=== PATIENT | male | born 1950 | race Caucasian/White ===

== ENCOUNTER 2017-03-02 10:04 | Inpatient (IN) | payer MEDICARE, BC ==
[~2017-03-02] VITALS: Ht 124.5 cm; Wt 91.2 kg
[~2017-03-02 10:04] MED LIST: ALDACTONE100 MG PO; ARGINAID PO; ASPIRIN81 MG PO; BENADRYL 2% CRE30 GM TOPICAL; BETAPACE 80 MG80 MG PO; BUMEX 1 MG TAB1 MG PO; CHRONULAC30 ML PO; COREG12.5 MG PO; COUMADIN2 MG PO; DAKIN'S 0.125%480 M1 TOPICAL; FEXOFENADINE HC60 MG PO; FLOVENT HFA 22012 GM INH; FLUTICASONE PRO16 GM NASAL; GABAPENTIN100 MG PO; GLUCAGEN1 MG/VIAL IM; GLUCAGEN1 MG/VIAL SC; HUMULIN R100 U/ML SC; INSTA-GLUCOSE31 GM PO; IPRAT-ALBUT 0.5-3 ML UPD; K-DUR20 MEQ PO; LASIX40 MG PO; LEVAQUIN 5500 MG/100 IV; LEVAQUIN500 MG PO; LEVAQUIN750 MG PO; LISINOPRIL10 MG PO; LYRICA75 MG PO; MAALOX ADVANCE355 ML PO; MACROBID100 MG PO; MEXITIL 150 MG150 MG PO; MUCUS RELIEF400 MG PO; MULTIPLE VITAMI1 TA1 PO; NYSTATIN15 GM TOPICAL; OMNICEF300 MG PO; PERCOCET 10/3251 TA1 PO; PRAVACHOL40 MG PO; PROTEIN POWDER PO; PROTONIX40 MG PO; SENOKOT-S TABLE1 TAB PO; TUMS500 MG PO; ULTRAM50 MG PO; WELLBUTRIN SR150 MG PO; XARELTO10 MG PO; ZYLOPRIM100 MG PO
[2017-03-02 10:58] LABS: BASOPHILS 0.3 % (0-2); EOSINOPHILS 3.5 % (0-7); HEMATOCRIT 39.7 % (42.0-54.0); HEMOGLOBIN 12.8 g/dL (13.5-17.5); IMMATURE GRANULOCYTES 0.2 % (0-5); LYMPHOCYTES 10.3 % (15-50); MCH 27.4 pg (26.0-34.0); MCHC 32.2 g/dL (31.0-37.0); MEAN PLATELET VOLUME 9.7 fL (7.4-10.4); MONOCYTES 6.4 % (2-11); NEUTROPHILS 79.3 % (40-80); RBC 4.67 10x6/uL (4.20-6.10); RDW 18.3 % (11.5-14.5); WBC 9.7 10x3/uL (4.8-10.8)
[2017-03-02 11:00] LABS: PLATELET COUNT 267 10x3/uL (130-400)
[2017-03-02 11:14] LABS: ALBUMIN 3.5 g/dL (3.4-5.0); ALKALINE PHOSPHATASE 100 U/L (46-116); ALT (SGPT) 13 U/L (10-68); BILIRUBIN - TOTAL 1.15 mg/dL (0.2-1.3); CALC OSMOLALITY 296 mosm/kg (275-300); CALCIUM 9.3 mg/dL (8.5-10.1); CARBON DIOXIDE 27.5 mmol/L (21.0-32.0); CHLORIDE - SERUM 98 mmol/L (98-107); CREATININE - SERUM 3.7 mg/dL (0.6-1.3); POTASSIUM - SERUM 4.6 mmol/L (3.5-5.1); PROTEIN - SERUM 8.5 g/dL (6.4-8.2); SODIUM 136 mmol/L (136-145); UREA NITROGEN 69 mg/dL (7-18); eGFR NON AFRICAN AMERICAN 18 mL/min (90-120)
[2017-03-02 11:15] LABS: GLUCOSE 194 mg/dL (74-106)
[2017-03-02 11:40] LABS: CKMB 2.5 U/L (0.0-3.6); CREATINE KINASE 144 UL (21-232)
[2017-03-02 11:44] LABS: TROPONIN-I 0.065 ng/mL (0.000-0.060)
[2017-03-02 12:14] LABS: APPEARANCE TURBID (CLEAR); BILIRUBIN NEGATIVE (NEGATIVE); COLOR YELLOW (YELLOW); GLUCOSE NEGATIVE (NEGATIVE); KETONE NEGATIVE (NEGATIVE); LEUKOCYTE ESTERASE 2+ (NEGATIVE); NITRITE NEGATIVE (NEGATIVE); PROTEIN TRACE mg/dL (NEGATIVE); UROBILINOGEN NORMAL (NORMAL)
[2017-03-02 12:23] LABS: BACTERIA MANY /hpf (NONE SEEN); EPITHELIAL CELLS OCC /hpf (0-5); WHITE CELLS - URINE >50 /hpf (0-5)
--- NOTE | 2017-03-02 13:45 | NUR ---
RECEIVED PT TO ROOM 2122 FROM ER VIA W/C IN STABLE CONDITION PT DENIES ANY NEEDS OR DISCOMFORT AT THIS TIME WILL CONTINUE TO MONITOR
[2017-03-02] MEDS ORDERED: BUTRANS1 EAC1 TRANSDERM (14:09)
[2017-03-02] MEDS ORDERED: ZYLOPRIM100 MG PO (14:11)
[2017-03-02 15:43] VITALS: BP 107/65
[2017-03-02 16:00] VITALS: BP 112/71; Ht 124.5 cm; Wt 91.2 kg
--- NOTE | 2017-03-02 17:25 | NUR ---
FSBS 175
[2017-03-02 17:31] LABS: CREATINE KINASE 265 UL (21-232)
[2017-03-02 17:32] LABS: TROPONIN-I 0.062 ng/mL (0.000-0.060)
[2017-03-02 17:33] LABS: CKMB 4.1 U/L (0.0-3.6)
--- NOTE | 2017-03-02 18:45 | NUR ---
PT UNABLE TO WEAR SCDs BILATERAL AKA
--- NOTE | 2017-03-02 19:00 | NUR ---
INITIAL ROUNDS MADE. PT SITTING UP IN BED WATCHING TV. C-COLLAR IN PLACE, PT DENIES NEEDS OR C/O AT THIS TIME. CALL LIGHT IN REACH WILL CONT TO MONITOR.
[2017-03-02 20:00] VITALS: BP 108/66
[2017-03-02 23:46] LABS: CREATINE KINASE 263 UL (21-232); TROPONIN-I 0.061 ng/mL (0.000-0.060)
[2017-03-02 23:47] LABS: CKMB 3.4 U/L (0.0-3.6)
[2017-03-03] VITALS (7 sets, daily range): BP systolic 108–129; BP diastolic 62–80
[2017-03-03 04:31] LABS: BASOPHILS 0.3 % (0-2); EOSINOPHILS 3.9 % (0-7); HEMATOCRIT 39.4 % (42.0-54.0); HEMOGLOBIN 12.5 g/dL (13.5-17.5); IMMATURE GRANULOCYTES 0.2 % (0-5); LYMPHOCYTES 11.3 % (15-50); MCH 27.2 pg (26.0-34.0); MCHC 31.7 g/dL (31.0-37.0); MCV 85.7 fL (80.0-100.0); MEAN PLATELET VOLUME 9.9 fL (7.4-10.4); MONOCYTES 6.6 % (2-11); NEUTROPHILS 77.7 % (40-80); PLATELET COUNT 285 10x3/uL (130-400); RDW 18.5 % (11.5-14.5); WBC 10.3 10x3/uL (4.8-10.8)
[2017-03-03 04:49] LABS: ANION GAP 17.1 mmol/L (8-16); CALCIUM 9.3 mg/dL (8.5-10.1); CARBON DIOXIDE 27.5 mmol/L (21.0-32.0); CREATININE - SERUM 3.8 mg/dL (0.6-1.3); POTASSIUM - SERUM 4.6 mmol/L (3.5-5.1)
--- NOTE | 2017-03-03 09:43 | NUR ---
Patient Name: NENA BHATTI Admission Status: ER Accout number: [id number] Admission Date: 03-02-2017 : 1950 Admission Diagnosis: Attending: MARGOTH Current LOS: 1 Anticipated DC Date: 03-03-2017 Planned Disposition: Home Primary Insurance: MEDICARE A & B Discharge Planning Comments: * Is the patient Alert and Oriented? Yes 0 * How many steps to enter\exit or inside your home? RAMP 0 * PCP DR. ERICKSON 0 * Pharmacy [facility] [address] 0 * Preadmission Environment Home with Family 0 * ADLs Independent 0 * Equipment [facility] Bed Génesis Lift Other Shower Chair Wheelchair 0 * Other Equipment ELECTRIC WHEELCHAIR CONVERSION VAN WITH LIFT AND HAND CONTROLS NO MEDICAL EQUIPMENT PROVIDER PREFERENCE 0 * List name and contact numbers for known caregivers / representatives who currently or will assist patient after discharge: INDY BHATTI, SPOUSE, 0 * Community resources currently utilized None 0 * Please name any agencies selected above. NONE 0 * Additional services required to return to the preadmission environment? No 0 * Can the patient safely return to the preadmission environment? Yes 0 * Has this patient been hospitalized within the prior 30 days at any hospital? No 0 CM RECEIVED REQUEST FROM [employer] TO MEET WITH PT AT HIS REQUEST. CM MET WITH PT IN ROOM TO DISCUSS DISCHARGE PLANNING AND NEEDS. PT REPORTS LIVING AT HOME INDEPENDENTLY WITH HIS SPOUSE. PT REPORTS HAVING ALL NEEDED MEDICAL EQUIPMENT AND NO OUTSIDE SERVICES ASSISTING IN THE HOME. CM DISCUSSED AVAILABILITY OF HOME HEALTH, REHAB SERVICES AND MEDICAL EQUIPMENT. PT DENIES DISCHARGE NEEDS, REPORTS THAT HE IS NEEDING TO KNOW IF CM CAN GET HIM A RIDE HOME OR DOES HE NEED TO CALL AND FIND SOMEONE. PT REPORTS BEING INDEPENDENT AT HOME IN HIS ELECTRIC WHEELCHAIR. PT REPORTS THAT HE HAS A LIFT VAN WITH HAND CONTROLS THAT HE DRIVES. PT REPORTS HIS IS ON VACATION OUT OF STATE RIGHT NOW. CM DISCUSSED BUS TRANSPORT, PT IS NOT ABLE TO RIDE WITHOUT HIS WEELCHAIR; PT IS NOT ABLE TO TAKE [employer] CAB EVEN IF HE HAD HIS WHEELCHAIR THE CAB COMPANY WILL NOT PLACE THE WHEELCHAIR IN THE CAR WITH PT. PT WILL SEEK A FRIEND TO PICK HIM UP, DENIES FURTHER NEEDS. Crew Lead: Mac Valdez
--- NOTE | 2017-03-03 10:37 | NUR ---
URINE SPECIMEN COLLECTED AND TAKEN TO LAB FOR CULTURE. WILL MONITOR.
--- NOTE | 2017-03-03 10:53 | NUR ---
METRONICS AT BS CHECKING PACEMAKER.
--- NOTE | 2017-03-03 11:21 | NUR ---
ECHO COMPLETED AT BS.
[2017-03-04] VITALS (10 sets, daily range): BP systolic 106–127; BP diastolic 66–75
[2017-03-04 06:39] LABS: BASOPHILS 0.3 % (0-2); EOSINOPHILS 4.6 % (0-7); HEMATOCRIT 36.9 % (42.0-54.0); IMMATURE GRANULOCYTES 0.2 % (0-5); LYMPHOCYTES 11.4 % (15-50); MCH 27.6 pg (26.0-34.0); MCHC 32.5 g/dL (31.0-37.0); MCV 84.8 fL (80.0-100.0); MEAN PLATELET VOLUME 9.7 fL (7.4-10.4); MONOCYTES 6.8 % (2-11); NEUTROPHILS 76.7 % (40-80); PLATELET COUNT 251 10x3/uL (130-400); RBC 4.35 10x6/uL (4.20-6.10); RDW 18.4 % (11.5-14.5); WBC 9.3 10x3/uL (4.8-10.8)
[2017-03-04 07:11] LABS: ANION GAP 15.6 mmol/L (8-16); CALCIUM 8.6 mg/dL (8.5-10.1); CARBON DIOXIDE 26.7 mmol/L (21.0-32.0); CREATININE - SERUM 3.9 mg/dL (0.6-1.3); POTASSIUM - SERUM 4.3 mmol/L (3.5-5.1); URIC ACID 14.4 mg/dL (2.6-7.2)
--- NOTE | 2017-03-04 08:10 | NUR ---
ASSESSMENT DONE. DENIES NEEDS.
--- NOTE | 2017-03-04 10:27 | NUR ---
RESTS IN BED WITHOUT NEEDS VOICED. NECK COLLAR ON. CALL LIGHT IN REACH. WILL CONT. PLAN OF CARE.
--- NOTE | 2017-03-04 17:03 | NUR ---
WITHOUT CHANGES OR DISTRESS NOTED AT THIS TIME. DENIES NEEDS.
--- NOTE | 2017-03-04 19:38 | NUR ---
RESUMED CARE OF PT, LYING IN BED RESPIRATIONS EVEN AND UNLABORED ON ROOM AIR. 81 PACED ON TELEMETRY. ASSISSTED TO BEDSIDE COMMODE, CALL LIGHT IN REACH. SINGER TO GRAVITY. WILL CONTINUE TO MONITOR. SEE NURSE ASSESSMENT.
--- NOTE | 2017-03-04 22:20 | NUR ---
BED BATH AND LINENS CHANGED. NO NEEDS AT THIS TIME, WILL CONTINUE TO MONITOR.
[2017-03-05] VITALS: BP 132/78
[2017-03-05 04:00] VITALS: BP 128/71
--- NOTE | 2017-03-05 06:46 | NUR ---
NO CHANGES FROM PREVIOUS ASSESSMENT, CALL LIGHT IN REACH.
[2017-03-05 07:30] LABS: BASOPHILS 0.4 % (0-2); EOSINOPHILS 5.3 % (0-7); HEMATOCRIT 35.9 % (42.0-54.0); HEMOGLOBIN 11.7 g/dL (13.5-17.5); IMMATURE GRANULOCYTES 0.2 % (0-5); LYMPHOCYTES 12.4 % (15-50); MCH 27.1 pg (26.0-34.0); MCHC 32.6 g/dL (31.0-37.0); MCV 83.3 fL (80.0-100.0); MEAN PLATELET VOLUME 9.9 fL (7.4-10.4); MONOCYTES 6.6 % (2-11); NEUTROPHILS 75.1 % (40-80); PLATELET COUNT 216 10x3/uL (130-400); RBC 4.31 10x6/uL (4.20-6.10); RDW 18.1 % (11.5-14.5); WBC 8.2 10x3/uL (4.8-10.8)
--- NOTE | 2017-03-05 07:30 | NUR ---
PT IN HIGH FOWLERS POSITION WATCHING TV. PT DENIES PAIN OR NEEDS AT THIS TIME. RESP. EVEN AND UNLABORED RESPIRATIONS NOTED.
[2017-03-05 07:31] LABS: ANION GAP 15.9 mmol/L (8-16); CALCIUM 8.8 mg/dL (8.5-10.1); CREATININE - SERUM 3.3 mg/dL (0.6-1.3); POTASSIUM - SERUM 3.9 mmol/L (3.5-5.1)
[2017-03-05 08:00] VITALS: BP 110/69
--- NOTE | 2017-03-05 09:45 | NUR ---
PT IN HIGH FOWLERS POSITION. PHYSICAL ASSESSMENT DONE, SEE SHIFT ASSESS. C COLLAR IN PLACE. BRUISE NOTED MID FOREHEAD 0.5 INCH HEIGHT AND 2INCH WIDE. NO SWELLING NOTED AT SITE. PT REQUESTING COLLAR TO BE REMOVED FOR SHAVE. WILL CHECK WITH MD. LUNGS CLEAR TO AUSCULTATION, TELEMETRY IN PLACE- PACED AT 71BPM PER FLARE BREAKER. BS ACTIVE X 4. SUPRA PUBIC CATHETER IN PLACE AND DRAINING TO GRAVITY. YELLOW URINE NOTED IN COLLECTION BAG. AKA BILATERAL NOTED. PT DENIES PAIN OR FURTHER NEEDS AT THIS TIME. AM MEDS GIVEN. SEE EMAR.
[2017-03-05 12:00] VITALS: BP 118/71
--- NOTE | 2017-03-05 12:00 | NUR ---
PT IN HIGH FOWLERS POSITION. INSULIN GIVEN PER SS. DIET TRAY SET UP AND PT DENIES FURTHER PAIN OR NEEDS AT THIS TIME.
[2017-03-05] MEDS ORDERED: BUMEX 1 MG TAB1 MG PO (13:28)
[2017-03-05] MEDS ORDERED: OMNICEF300 MG PO (13:30)
--- NOTE | 2017-03-05 14:30 | NUR ---
PT SITTING IN HIGH FOWLERS POSITION. PT REQUESTS DC INSTRUCTIONS BE HELD UNTIL RETURNS. IV DCD WITH CATH TIP INTACT. CATHETER BAG EMPTIED WITH 750MLS NOTED. PT DENIES FURTHER NEEDS.
--- NOTE | 2017-03-05 15:30 | NUR ---
WRITTEN AND VERBAL DISCHARGE INSTRUCTIONS GIVEN TO PT AND . DISCUSSED OMNICEF ADDITION TO CURRENT HOME MEDS, WELL FINDING OUT IF PTS INSURANCE WILL COVER ULORIC. PT VERBALIZES UNDERSTANDING OF NEW MEDS AND VERBALIZES THAT HE WILL WEAR THE C-COLLAR AT ALL TIMES UNTIL HIS FOLLOW UP APPOINTMENT WITH DR SANTAIGO. BOTH DENY FURTHER QUESTIONS OR NEEDS AT THIS TIME. FUEL AGENT REMOVED AND TECH NOTIFIED.
--- NOTE | 2017-03-05 16:00 | NUR ---
DR CASTELLANOS CALLS UNIT WITH ORDER TO CALL IN ULORIC 40MG PO DAILY AND INSTRUCTIONS TO TELL PT THAT IF IT IS "AFFORDABLE" TO FILL IT, IF NOT, DISCUSS WITH DR SIFUENTES AT FOLLOW UP APPOINTMENT. INSTRUCTIONS RELAYED TO PT AND . BOTH VERBALIZE UNDERSTANDING. PT OFF UNIT TO PRIVATE VEHICLE VIA WC.
--- NOTE | 2017-03-05 17:12 | NUR ---
KELLIE CALLED INTO [facility] ORDERED PER LIZA CHARGE NURSE.
--- NOTE | 2017-03-05 17:22 | NUR ---
Patient Name: NENA BHATTI Encounter No: [id number] : 1950 Primary Insurance: MEDICARE A & B Anticipated DC Date: 03-05-2017 Planned Disposition: Home LATE ENTRY: DCP follow-up note: CM RECEIVED DISCHARGE ORDER, MET WITH PT IN ROOM TO DISCUSS DISCHARGE NEEDS AND PLANNING. CM DISCUSSED AVAILABILITY OF HOME HEALTH, REHAB SERVICES AND MEDICAL EQUIPMENT. PT DENIES DISCHARGE NEEDS. SPOUSE BACK FROM VACATION AND WILL TRANSPORT PT HOME AT DISCHARGE TODAY. IMPORTANT MESSAGE FROM MEDICARE PROVIDED AND EXPLAINED. Mac Valdez, CASE MANAGEMENT
--- NOTE | 2017-03-10 13:13 | CN ---
PATIENT NAME:NENA BHATTI MEDICAL RECORD: [id number] : [birth year] LOCATION:D. D.2122 ADMIT DATE: 03/04/17 ACCOUNT: [id number] CONSULTING PHYSICIAN: JUAN DANIEL DOHERTY MD REFERRING PHYSICIAN: RASHID GOODWIN M.D. DATE OF CONSULTATION: 03/02/2017 HISTORY OF PRESENT ILLNESS: This is a 66-year-old gentleman with a history of coronary artery disease, severe ischemic cardiomyopathy, status post implantable cardioverter-defibrillator placement with recent battery upgrade. He had a syncopal episode yesterday. He had been working in the yard Friday. He has not been drinking as much fluid as previously. We were asked to see him concerning his cardiovascular status. PAST MEDICAL HISTORY: History of cardiomyopathy described above. Coronary artery disease. Hypertension. Status post three lead implantable cardioverter-defibrillator. Cerebrovascular disease status post bilateral above the knee amputations. SOCIAL HISTORY: He lives here in [place]. He actually does fairly well with activities of daily living despite bilateral above the knee amputations. He is a nonsmoker. REVIEW OF SYSTEMS: Standard. CURRENT MEDICATIONS: Nasreen 60 milligrams by mouth every day. Sotalol 80 milligrams twice a day. Aspirin 81 milligrams every day. Butrans patch. Tramadol 50 milligrams every six hours as needed. Bumex 3 milligrams every day. Insulin per scale. PHYSICAL EXAMINATION: GENERAL: He is pleasant and in no acute distress. VITAL SIGNS: Blood pressure 108/62. Pulse 71 and regular. HEAD, EYES, EARS, NOSE, AND THROAT: Normocephalic, atraumatic. NECK: No bruits noted. HEART: Regular, 2/6 systolic ejection murmur. LUNGS: Good air excursion. ABDOMEN: Soft, nontender. PULSES: 2+, no edema. IMPRESSION AND PLAN: Syncope multifactorial. Will evaluate implantable cardioverter-defibrillator. No contraindication to discharge from my standpoint. CONSULT REPORT [id number] BHATTINENAJUAN DANIEL KWAN MD at 1313 CC: [id number] DICTATION DATE: 03/02/17 1200 NICU RN: DM 03/03/17 1455 DIS IN 03/05/17 [facility] [address] [place] [address]
== END 2017-03-05 16:10 | disposition home or self-care (01) | DRG 698 ==
LOC: D.ER 10:04 → D.M2 12:48 → OBSVTIME 12:48 → D.M2 12:48
PROVIDERS: Family Medicine; ADMIT Family Medicine
DX: T83.511A Infection and inflammatory reaction due to indwelling urethral catheter, initial encounter (principal); N00.9 Acute nephritic syndrome with unspecified morphologic changes; N17.9 Acute kidney failure, unspecified; I13.0 Hypertensive heart and chronic kidney disease with heart failure and stage 1 through stage 4 chronic kidney disease, or unspecified chronic kidney disease; N18.4 Chronic kidney disease, stage 4 (severe); I50.22 Chronic systolic (congestive) heart failure; S12.9XXA Fracture of neck, unspecified, initial encounter; Y84.6 Urinary catheterization as the cause of abnormal reaction of the patient, or of later complication, without mention of misadventure at the time of the procedure; R55 Syncope and collapse; E11.22 Type 2 diabetes mellitus with diabetic chronic kidney disease; E11.65 Type 2 diabetes mellitus with hyperglycemia; I48.2 Chronic atrial fibrillation; J44.9 Chronic obstructive pulmonary disease, unspecified; D63.1 Anemia in chronic kidney disease; W05.0XXA Fall from non-moving wheelchair, initial encounter; I25.5 Ischemic cardiomyopathy; I25.10 Atherosclerotic heart disease of native coronary artery without angina pectoris; Z89.612 Acquired absence of left leg above knee; Z89.611 Acquired absence of right leg above knee; Z95.810 Presence of automatic (implantable) cardiac defibrillator

== ENCOUNTER 2017-04-07 18:48 | Inpatient (IN) | payer MEDICARE, BC ==
[~2017-04-07] VITALS: Ht 182.9 cm; Wt 103.2 kg
--- NOTE | ~2017-04-07 | HEMODYNAMI ---
PATIENT:NENA BHATTI MEDICAL RECORD: [id number] : 54 [id number] ADMISSION DATE: 04/07/17 Generatedon:04/09/201714:53 Patient name: NENA BHATTI Patient #: [id number] SSN: : 1950 Date of study: 04/09/2017 Page: Of Hemodynamic Procedure Report Patient Data Patient Demographics Procedure consent was obtained First Name: NENA Gender: Male Last Name: DAVY : 1950 Patient #: [id number] Age: 66 year(s) Race: Additional ID: [id number] Contact details [address]: [address] [place] [address] State: [place] [facility] [place]: [address] Past Medical History Allergies: No known allergies Admission Admission Data Admission Date: 04/07/2017 Admission Time: 20:59 Admit Source: Other Room #: D.2120 Lab Results Lab Result Date: 04/09/2017 Lab Result Time: 5:50 Biochemistry Name Units Result Min Max BUN mg/dl 59 --(----)-* 7 18 Creatinine mg/dl 2.7 --(----)-* 0.6 1.3 CBC Name Units Result Min Max Hematocrit % 33.1 *-(----)-- 42 54 Hemoglobin g/dl 10.6 *-(----)-- 13.5 17.5 Procedure Procedure Types Cath Procedure Diagnostic Procedure LHC Coronaries w/Grafts PCI Procedure SVG-BMS/GABRIEL Initial SVG-BMS/GABRIEL Additional Procedure Description Procedure Date Procedure Date: 04/09/2017 Procedure Start Time: 14:10 Procedure End Time: 14:51 Procedure Staff Name Function García Clark MD Performing Physician Negrito Mckinley RT Scrub Mattie Cardenas RN Nurse Tal Tolbert RT Monitor Procedure Data Cath Procedure Fluoroscopy Diagnostic fluoroscopy Total fluoroscopy Time: 7.5 time: 7.5 min min Diagnostic fluoroscopy Total fluoroscopy dose: dose: 1190 mGy 1190 mGy Contrast Material Contrast Material Type Amount (ml) Isovue 300 118 Entry Location Entry Primary Successful Side Size Upsize Upsize Entry Closure Succes sful Closure Location (Fr) 1 (Fr) 2 (Fr) Remarks Device Remarks Femoral Left 5 Fr 6 Fr Exoseal artery Short Estimated blood loss: 10 ml Diagnostic catheters Device Type Used For End Catheter Placement Cordis 5Fr JL 4.0 Procedure Catheter (MP) Cordis 5Fr 3DRC Catheter Procedure (MP) Diagnostic Infinity 5Fr Procedure AR 1 MOD catheter Procedure Medications Medication Administration Route Dosage Oxygen NC 2 l/min Lidocaine 2% added to field 20 Heparin Flush Bag added to field 2 bags (1000units/500ml NS) 0.9% NaCl I.V. 100 ml/hr Versed I.V. 1 mg Fentanyl I.V. 50 mcg Heparin Bolus I.V. 4000 units Cardene I.C. 300 mcg Integrilin (Bolus I.V. 9 ml 2mg/ml) Versed I.V. 0.5 mg Fentanyl I.V. 25 mcg Plavix P.O. 600 mg Hemodynamics Rest HGB: 10.6 (g/dl) Heart Rate: 74 (bpm) Pressure Samples Time Site Value (mmHg) Purpose Heart Use Rate(bpm) 14:22 LV 115/13,22 Snapshot 69 Snapshots Pre Cath Intra NCS Post Cath Vital Signs Time Heart Resp SPO2 etCO2 PB8xavu NIBP (mmHg) Rhythm Pain Sedation Rate (ipm) (%) (mmHg) (mmHg) Status Level (bpm) 13:52:53 79 22 100 0 0 117/85(101) NSR 0 (11) 10(A) , No pain 13:57:03 74 18 100 0 0 120/80(105) NSR 0 (11) 10(A) , No pain 14:01:19 72 18 100 0 0 119/65(94) NSR 0 (11) 10(A) , No pain 14:05:31 71 16 99 0 0 110/77(94) NSR 0 (11) 10(A) , No pain 14:09:41 70 14 100 0 0 112/74(88) NSR 0 (11) 10(A) , No pain 14:13:52 69 14 99 0 0 116/71(94) NSR 0 (11) 9(A) , No pain 14:18:07 69 14 98 0 0 114/69(86) NSR 0 (11) 9(A) , No pain 14:22:20 68 14 98 0 0 112/69(87) NSR 0 (11) 9(A) , No pain 14:26:35 68 14 98 0 0 107/64(84) NSR 0 (11) 9(A) , No pain 14:30:46 68 14 98 0 0 106/64(83) NSR 0 (11) 9(A) , No pain 14:34:56 68 14 98 0 0 106/68(84) NSR 0 (11) 10(A) , No pain 14:39:06 68 14 99 0 0 109/70(90) NSR 0 (11) 10(A) , No pain 14:43:16 68 17 99 0 0 114/70(93) NSR 0 (11) 10(A) , No pain 14:47:26 69 19 100 0 0 111/76(94) NSR 0 (11) 10(A) , No pain 14:51:28 70 17 100 0 0 115/79(102) NSR 0 (11) 10(A) , No pain Medications Time Medication Route Dose Verified Delivered Reason Notes Effectiveness by by 13:56:12 Oxygen NC 2 García Raniie used for l/min [facility] Rell Cardenas RN procedure 13:56:21 Lidocaine 2% added 20ml García Mariano for local to vial [facility] anesthetic field MD SCHMIDT 13:56:29 Heparin Flush added 2 García García used for Bag to bags [facility] procedure (1000units/500ml field MD SCHMIDT NS) 13:56:38 0.9% NaCl I.V. 100 García Phelps Per ml/hr [facility] Rell Cardenas RN physician 14:08:34 Versed I.V. 1 mg García Phelps for sedation [facility] Rell Cardenas RN, MD 14:08:41 Fentanyl I.V. 50 García Raniie for sedation mcg [facility] Rell Cardenas RN, MD 14:21:45 Heparin Bolus I.V. 4000 García Phelps Per verified units [facility] Rell Cardenas RN physician with dr MD lucia 14:24:34 Cardene I.C. 300 García García for mcg [facility] Rell Pizano MD, MD 14:25:48 Integrilin I.V. 9 ml García reyes Wasted 1 (Bolus 2mg/ml) [facility] Rell Cardenas RN antiplatelet ml of MD therapy vial 14:28:37 Versed I.V. 0.5 García reyes sedation mg [facility] Rell Cardenas RN, MD 14:28:45 Fentanyl I.V. 25 García Phelps for sedation mcg [facility] Rell Cardenas RN, MD 14:40:57 Plavix P.O. 600 García Phelps for mg [facility]. Rell aCrdenas RN antiplatelet therapy Procedure Log Time Note 13:25:54 Informed consent obtained and on chart 13:25:59 Admit Source: Other 13:26:16 Diagnostic Cath status Elective 13:26:18 Mattie Cardenas RN sent for patient. Start room use. 13:26:19 Time tracking: Regular hours 13:26:23 Plan of Care:Hemodynamics will remain stable., Cardiac rhythm will remain stable., Comfort level will be maintained., Respiratory function will remain adequate., Patient/ family verbilizes understanding of procedure., Procedure tolerated without complication., Recovers from procedure without complications.. 13:29:36 Lab Result : BUN 59 mg/dl 13:29:36 Lab Result : Creatinine 2.7 mg/dl 13:29:36 Lab Result : Hematocrit 33.1 % 13:29:36 Lab Result : Hemoglobin 10.6 g/dl 13:29:39 Lab results completed and on chart. 13:34:43 Patient received from Med II to CCL 1 Alert and oriented. Tansferred to table in Supine position. 13:34:44 Warm blankets applied, and zaida hugger turned on for patient comfort. 13:34:44 Correct patient and procedure confirmed by team. 13:34:45 ECG and BP/O2 sat monitors applied to patient. 13:35:19 H&P Date Dictated: 04/08/2017 Within 30 days and on chart.. 13:35:20 Pre-procedure instructions explained to patient. 13:35:20 Pre-op teaching completed and patient verbalized understanding. 13:51:52 Vital chart was started 13:55:08 Baseline sample Acquired. 13:55:13 Rhythm: sinus rhythm 13:55:15 Full Disclosure recording started 13:55:53 Family unavailable. 13:56:12 Oxygen 2 l/min NC was administered by Mattie Cardenas RN; used for procedure; 13:56:21 Lidocaine 2% 20ml vial added to field was administered by García Clark MD; for local anesthetic; 13:56:29 Heparin Flush Bag (1000units/500ml NS) 2 bags added to field was administered by García Clark MD; used for procedure; 13:56:38 0.9% NaCl 100 ml/hr I.V. was administered by Mattie Cardenas RN; Per physician; 13:57:08 Patient NPO since Breakfast. 13:57:37 Patient allergic to No known allergies 13:57:47 Is the patient allergic to Iodine/contrast media? No. 13:57:50 Is patient on blood thinner?No 13:58:05 Patient diabetic? Yes. 13:58:07 If diabetic: On Metformin? No 13:58:19 INSULIN DEPENDANT 13:58:25 ----Pre-sedation anethsthesia assessment.---- 13:58:28 Previous problem with sedation/anesthesia? No ? 13:58:30 Snore? Yes 13:58:32 Sleep apnea? No 13:58:35 Deviated septum? No 13:58:37 Opens mouth fully? Yes 13:58:46 Sticks out tongue? Yes 13:58:56 Airway obstruction? No ? 13:59:04 Dentures? No ? 13:59:54 PATIENT WAS NOTED TO HAVE HAD A NOSE BLEED FROM EARLIER. 14:00:20 PATIENT IS A BILATERAL BKA 14:00:42 Patient pain scale 0/10 ?. 14:00:50 IV patent on arrival in right hand with 0.9% NaCl at [facility]. 14:01:02 PATIENT HAS A SINGER CATHETER 1100 ml of urine emptied. 14:01:17 Left groin area was prepped with chlora-prep and draped in sterile fashion 14:01:19 Alarms reviewed by R. N. 14:01:20 Sharps counted by scrub and verified by R.N. 14:01:25 Use device set Femoral Dx 14:01:32 Acist Syringe opened to sterile field. 14:01:33 Bag Decanter opened to sterile field. 14:01:34 Medline Cath Pack opened to sterile field. 14:01:35 Terumo 5Fr [place] Sheath opened to sterile field. 14:01:36 St Franc 260cm J .035 wire opened to sterile field. 14:01:37 Acist Hand Control opened to sterile field. 14:01:38 Acist Manifold opened to sterile field. 14:01:40 Diagnostic Infinity 5Fr Multipack catheter opened to sterile field. 14:01:41 Tegaderm 4 x 4 opened to sterile field. 14:04:46 Zero performed for pressure channel P1 14:04:50 Zero performed for pressure channel P1 14:05:13 Physician arrived 14::13 --------ALL STOP TIME OUT------ 14:05:14 Final Timeout: patient, procedure, and site verified with staff and physician. All members of the team are in agreement. 14:05:17 Left groin site verified by team. 14:05:31 Physical assessment completed. ASA score P 3 - A patient with severe systemic disease as per García Clark MD. 14:05:37 Sedation plan: IV Moderate Sedation Versed, Fentanyl 14:08:34 Versed 1 mg I.V. was administered by Mattie Cardenas RN; for sedation; 14:08:41 Fentanyl 50 mcg I.V. was administered by Mattie Cardenas RN; for sedation; 14:10:25 Procedure started. 14:10:31 Local anesthetic to left femerol artery with Lidocaine 2% by García Clark MD.INITIAL ACCESS ONLY 14:11:32 A 5 Fr sheath was inserted into the Left Femoral artery 14:11:42 A Cordis 5Fr JL 4.0 Catheter (MP) was advanced over the wire and used for Procedure. 14:13:13 LCA angiography performed. 14:13:15 Catheter removed. 14:14:11 A Cordis 5Fr 3DRC Catheter (MP) was advanced over the wire and used for Procedure. 14:14:47 VEIN STUMP 14:15:42 MONROY to LAD angiography performed. 14:16:38 Catheter removed. 14:17:28 A Diagnostic Infinity 5Fr AR 1 MOD catheter was advanced over the wire and used for Procedure. 14:17:51 SVG to OM angiography performed. 14:18:18 Catheter removed. 14:18:34 Proceeding to intervention. 14:19:24 [employer]Buys Launcher 6Fr AR 1.0 guide catheter opened to sterile field. 14:19:25 Gallegos Whisper J 300cm 0.014 guide wire opened to sterile field. 14:19:26 [employer] BasixCompak Inflation Kit opened to sterile field. 14:20:36 Terumo 6Fr [place] Sheath opened to sterile field. 14:20:42 PCI Cath status Elective 14:20:51 Sheath upsized to a 6 Fr Short. 14:21:39 Procedure type changed to Cath procedure, Diagnostic procedure, LHC, Coronaries w/Grafts, PCI procedure, SVG-BMS/GABRIEL Initial, SVG-BMS/GABRIEL Additional 14:21:45 Heparin Bolus 4000 units I.V. was administered by Mattei Cardenas RN; Per physician; verified with dr lucia 14:21:48 6 Fr AR 1 guide catheter was inserted over the wire 14:24:34 Cardene 300 mcg I.C. was administered by García Clark MD; for vasodilation; 14:25:48 Integrilin (Bolus 2mg/ml) 9 ml I.V. was administered by Mattie Cardenas RN; for antiplatelet therapy; Wasted 1 ml of vial 14:26:08 WHISPER wire advanced. 14:26:10 Wire advanced across lesion. 14:28:37 Versed 0.5 mg I.V. was administered by Mattie Cardenas RN; for sedation; 14::45 Fentanyl 25 mcg I.V. was administered by Mattie Cardenas RN; for sedation; 14:28:53 Inflation Number: 1 A Medtronic Integrity 3.5 X 26 stent was prepped and advanced across the Aorta Left -> 1st Ob Awa. The stent was deployed at 14 YOBANY for 0:30 (min:sec). 14:30:38 Stent catheter was removed intact over wire. 14:32:27 Inflation Number: 2 A Medtronic Integrity 3.5 X 15 stent was prepped and advanced across the Aorta Left -> 1st Ob Awa. The stent was deployed at 14 YOBANY for 0:30 (min:sec). 14:33:49 Stent catheter was removed intact over wire. 14:37:12 Inflation Number: 1 A Medtronic Integrity 2.5 x 14 stent was prepped and advanced across the 2nd Ob Awa. The stent was deployed at 14 YOBANY for 0:30 (min:sec). 14:37:38 Stent catheter was removed intact over wire. 14:37:47 Wire removed. 14:37:48 Guide catheter removed. 14:40:57 Plavix 600 mg P.O. was administered by Mattie Cardenas RN; for antiplatelet therapy; 14:41:00 Cordis 6Fr Exoseal opened to sterile field. 14:41:15 Sheath removed intact; hemostasis achieved with Exoseal to the Left Femoral artery. 14:41:19 Procedure ended.(Physican Out) 14:41:36 Fluoroscopy time 07.50 minutes. 14:41:46 Fluoroscopy dose: 1190 mGy 14:41:46 Flurop Dose total: 1190 14:41:52 Contrast amount:Isovue 300 118ml. 14:41:54 Sharps counted by scrub and verified by R.N. 14:48:53 Insertion/operative site no bleeding no hematoma. 14:48:59 Post-op/insertion site Left Femoral artery dressed using a 4 x 4 and Tegaderm. 14:49:05 Post left femerol artery:stable 14:49:20 Post-procedure physical assessment completed. ASA score P 3 - A patient with severe systemic disease as per García Clark MD. 14:49:32 Post procedure rhythm: unchanged. 14:49:42 BBB 14:49:53 Estimated blood loss: 10 ml 14:50:02 Post procedure instruction explained to patient.Patient verbalizes understanding. 14:50:08 Patient needs reinforcement of post procedure teaching. 14:50:10 Procedure and supply charges have been captured, reviewed, submitted and are correct. 14:51:13 Vital chart was stopped 14:51:14 See physician's report for complete and final results. 14:51:31 Report given to [facility]. 14:51:36 Patient transfered to [facility] with Bed. 14:51:44 Procedure ended. 14:51:44 Full Disclosure recording stopped 14:51:53 End room use (Document Last) Intervention Summary Intervention Notes Time ActionType Lesion and Equipment Action# Pressure Duration Attributes Used 14:28:53 Place stent Aorta Left Medtronic 1 14 00:30 -> 1st Ob Integrity Awa 3.5 X 26 stent 14:32:27 Place stent Aorta Left Medtronic 2 14 00:30 -> 1st Ob Integrity Awa 3.5 X 15 stent 14:37:12 Place stent 2nd Ob Awa Medtronic 1 14 00:30 Integrity 2.5 x 14 stent Device Usage Item Name Manufacture Quantity Catalog Hospital Part Current Minimal L ot# / Number Charge Number Stock Stock Serial# Code Acist Acist 1 65084 511037 291644 283233 20 Syringe Medical Systems Savveo Bag Microtek 1 2002S 342015 48002 863881 5 Par[employer]ol [employer] Inc. Medline Cardinal 1 [id number] 380207 04522 217380 5 Cath Pack Health Terumo 5Fr Terumo 1 [id number] 909364 668188 074881 [address] St Franc 1 624923 802182 562696 554522 30 260cm J .035 wire Acist Hand Acist 1 86067 424550 165665 767474 5 FlightStats Medical Systems Inc Acist Acist 1 09877 487818 543820 488299 5 KoalaDeal Systems Inc Diagnostic Cardinal 1 [id number] 669860 22155 207570 30 Tacere Therapeuticsity Health 5Fr Multipack catheter Tegaderm 4 3M 1 1626W 572944 863043 819214 5 x 4 Cordis 5Fr Cardinal 1 401674 5 JL 4.0 Health Catheter (MP) Cordis 5Fr Cardinal 1 532935 5 [facility] LANIER Aravo Solutions Catheter (MP) Diagnostic Cardinal 1 [id number] 502667 512624 600759 15 Art [employer] 5Fr AR 1 MOD catheter Medtronic Medtronic 1 [id number] 812182 66852 395578 1 Launcher 6Fr AR 1.0 guide catheter Gallegos Gallegos 1 [id number] 202862 589103 997806 5 Whisper J Vascular 300cm 0.014 guide wire Merit Merit 1 [id number] 210161 226857 082687 15 Customer [facility] Medical Inflation Kit Terumo 6Fr Terumo 1 HPM629 417981 925765 590747 40 [place] Sheath Medtronic Medtronic 1 [id number] 484106 536133 1 0 [id number] Integrity 3.5 X 26 stent Medtronic Medtronic 1 [id number] 341148 615576 1 0 [id number] Integrity 3.5 X 15 stent Medtronic Medtronic 1 [id number] 725141 848333 1 0 [id number] Integrity 2.5 x 14 stent Cordis 6Fr Cardinal 1 [id number] 358040 216842 100941 10 [email or web address] Signature [place]it [place] Stage Time Signature Unsigned Intra-Procedure 04/09/2017 Tal Tolbert 2:53:34 PM RT(R) (CV) Signatures Monitor : Tal Tolbert RT Signature : Date : Time : [address] [place] [address]
--- NOTE | ~2017-04-07 | OP ---
PATIENT NAME: NENA BHATTI MEDICAL RECORD: [id number] :54 LOCATION:D.M2 D.0 ADMISSION DATE:04/09/17 SURGEON: JUAN DANIEL DOHERTY MD DATE OF OPERATION: PROCEDURE: Left heart catheterization, selective coronary angiography, left femoral approach. CATHETERS: A 5-Singaporean sheath, 5/4 left and right Julian AR catheter. The procedure was well tolerated and proceeded immediately to PTCA stenting of the saphenous vein graft circumflex. FINDINGS: Left ventriculography not performed secondary to contrast load. CORONARY ANATOMY: LEFT MAIN: The left main fills for a short period of time. LAD: Totally occluded before the takeoff of the circumflex to LAD. RIGHT CORONARY ARTERY: Totally occluded proximally. BYPASS GRAFTS: Saphenous vein graft to right is totally occluded. The right itself could be seen filling from the MONROY to LAD. LAD is widely patent throughout its course without evidence of post-anastomotic stenosis and fills the right circumflex vein graft. Vein graft to circumflex shows a long area of probably stenosis of 70% to 80% stenosis with superimposed thrombus. Distally, the anastomotic site has about 80% to 90% stenosis at the OM circumflex system itself. DESCRIPTION OF PROCEDURE: After a 5-Singaporean sheath was changed for a 6-Singaporean sheath, an AR guided catheter provided good guide catheter support followed by a 300-cm Whisper wire. The distal lesion at the anastomotic site was addressed with a 2.5 x 14 mm Integrity nondrug-eluting stent up to 14 atmospheres proximally at the area of diffuse stenosis and thrombus. The initial stent was a 3.5 x 26 mm Integrity nondrug-eluting stent, proximally was a 3.5 x 15 mm Integrity nondrug-eluting stent. Final injection shows excellent resolution of 80% plus stenosis, no significant residual throughout the vessel. RICH flow improved from 2 to 3. There was nice plumping of the distal vasculature as well. Sheath was closed with ExoSeal device. Integrilin was used in the case. Plavix was loaded in the lab. TRANSINT:[id number] Voice Confirmation ID: [id number] DOCUMENT ID: [id number] JUAN DANIEL DOHERTY MD CC: [id number] DICTATION DATE: 04/09/17 1444 STATISTICAL ANALYST: 04/09/17 2241 ADM IN [place] [id number] [place], [place] [id number]
--- NOTE | ~2017-04-07 | CN ---
PATIENT NAME:NENA BHATTI MEDICAL RECORD: [id number] : 54 LOCATION:D.M2 D.2120 ADMIT DATE: 04/07/17 ACCOUNT: [id number] CONSULTING PHYSICIAN: JUAN DANIEL DOHERTY MD REFERRING PHYSICIAN: TACOS ERICKSON MD DATE OF CONSULTATION: 04/08/2017 HISTORY OF PRESENT ILLNESS: A 66-year-old gentleman known to me with history of coronary artery disease, status post coronary bypass grafting, has history of chronic renal insufficiency, cardiomyopathy with ventricular arrhythmia, status post ICD placement and discharge back in early March, admitted with chest pain, classic for angina, now with elevated cardiac enzymes, this is an excess of his baseline elevation, with secondary chronic renal insufficiency. We are asked to see him concerning his cardiovascular status. PAST MEDICAL HISTORY: Includes: 1. History of hypertension. 2. Peripheral vascular disease, status post bilateral above-knee amputation. 3. Cardiomyopathy. 4. Diabetes mellitus. ALLERGIES: None known. MEDICATIONS: Typically include sotalol 80 b.i.d., aspirin 81 daily, Butrans patch 10 mcg per hour, tramadol 50 q. 6 p.r.n., Bumex 2 b.i.d. and insulin per scale. SOCIAL HISTORY: Lives here in [place], , has excellent family support. Quit smoking years back. REVIEW OF SYSTEMS: The patient reports easy bruising but reports no swollen glands. The patient reports no fever, no night sweats, no significant weight gain, no significant weight loss. No significant exercise tolerance. The patient reports no dry eyes, no irritation, no vision change. Patient reports no difficulty hearing and no ear pain. Patient reports no frequent nose bleeds or nose and sinus problems. Patient reports on arm pain on exertion. No shortness of breath while lying down. No history of heart murmur. Patient reports no cough, no wheezing or coughing up blood. Patient reports no abdominal pain, no vomiting. Normal appetite. No diarrhea and not vomiting blood. No nausea and no constipation. Patient reports no incontinence. No difficulty urinating. No hematuria. No increased frequency. Patient reports no muscle aches. No weakness, no arthralgias, no back pain. No swelling of the extremities. Patient reports no abnormal mole, no jaundice, no rashes. Reports no loss of consciousness. No weakness and no numbness. No seizures, dizziness, or headaches. The patient reports no depression, no sleep disturbance, feeling safe in a relationship and no alcohol abuse. Patient reports on fatigue. Reports no runny nose or sinus pressure. No itching, no hives, and no frequent sneezing. PHYSICAL EXAMINATION: GENERAL: Pleasant gentleman, in no acute distress. VITAL SIGNS: Blood pressure 109/69, pulse 72 and regular. HEENT: Normocephalic and atraumatic. NECK: No bruits are noted. HEART: Regular. S3 gallop is noted with II/ systolic ejection murmur. CONSULT REPORT [id number] NENA BHATTI LUNGS: Actually fairly good air excursion. ABDOMEN: Soft, nontender. EXTREMITIES: Shows well healed AKA scars. NEUROLOGIC: Grossly intact. IMPRESSION: Suspected non-ST elevation myocardial infarction given his elevated enzymes above baseline secondary to increased creatinine. We will plan for diagnostic angiography, would consult renal preoperatively, cautious fluids, etc., prior to catheterization. TRANSINT:[id number] Voice Confirmation ID: [id number] DOCUMENT ID: [id number] JUAN DANIEL DOHERTY MD CC: [id number] DICTATION DATE: 04/08/17 0850 SEDIMENT REMEDIATION CONSULTANT: 04/08/17 1552 ADM IN [facility] [address] [place] [id number]
[~2017-04-07 18:48] MED LIST changes: +BUTRANS1 EAC1 TRANSDERM
[2017-04-07 19:34] LABS: BASOPHILS 0.5 % (0-2); EOSINOPHILS 2.3 % (0-7); HEMOGLOBIN 11.6 g/dL (13.5-17.5); IMMATURE GRANULOCYTES 0.3 % (0-5); LYMPHOCYTES 15.7 % (15-50); MCH 28.4 pg (26.0-34.0); MCHC 32.2 g/dL (31.0-37.0); MEAN PLATELET VOLUME 10.1 fL (7.4-10.4); MONOCYTES 10.9 % (2-11); NEUTROPHILS 70.3 % (40-80); PLATELET COUNT 251 10x3/uL (130-400); RBC 4.09 10x6/uL (4.20-6.10); RDW 15.1 % (11.5-14.5); WBC 6.2 10x3/uL (4.8-10.8)
[2017-04-07 19:49] LABS: ALBUMIN 3.6 g/dL (3.4-5.0); ALKALINE PHOSPHATASE 95 U/L (46-116); ALT (SGPT) 7 U/L (10-68); BILIRUBIN - TOTAL 1.14 mg/dL (0.2-1.3); CALC OSMOLALITY 287 mosm/kg (275-300); CALCIUM 8.1 mg/dL (8.5-10.1); CARBON DIOXIDE 28.3 mmol/L (21.0-32.0); CHLORIDE - SERUM 94 mmol/L (98-107); CREATININE - SERUM 2.6 mg/dL (0.6-1.3); GLUCOSE 197 mg/dL (74-106); POTASSIUM - SERUM 4.4 mmol/L (3.5-5.1); PROTEIN - SERUM 7.9 g/dL (6.4-8.2); SODIUM 132 mmol/L (136-145); UREA NITROGEN 63 mg/dL (7-18); eGFR NON AFRICAN AMERICAN 26 mL/min (90-120)
[2017-04-07 20:00] LABS: CHOLESTEROL, TOTAL 132 mg/dL (0-200); CKMB 1.1 U/L (0.0-3.6); CREATINE KINASE 95 UL (21-232); HDL CHOLESTEROL 22 mg/dL (32-96); LDL CHOLESTEROL 77 mg/dL (0-100); LDL-HDL RATIO 3.5 ratio (1.5-3.5); TRIGLYCERIDE 169 mg/dL (30-200); TROPONIN-I 0.046 ng/mL (0.000-0.060)
[2017-04-07 21:34] LABS: TROPONIN-I 0.052 ng/mL (0.000-0.060)
--- NOTE | 2017-04-07 23:03 | NUR ---
PT ADMITTED TO ROOM 2120 @ 214. ALERT/ORIENTED. PIV TO RIGHT HAND. ADMISSION ASSESSMENT AND HISTORY COMPLETED. HOME MEDS REVIEWED. INITIATE PLAN OF CARE TELEMETRY STARTED . CALL LIGHT IN REACH. PT HAS AN ELECTRIC WHEELCHAIR THAT HAS BEEN PARKED IN HIS ROOM.
[2017-04-08] VITALS (7 sets, daily range): BP systolic 109–135; BP diastolic 66–75; Ht 182.9 cm; Wt 103.2 kg
--- NOTE | 2017-04-08 03:10 | NUR ---
PT RESTING WITH NO DISTRESS. NPO UNTIL SEEN BY RETAIL SELLING FLOOR LEADER IN AM. SUPRAPUBIC SINGRE INTACT AND PATENT TO BEDSIDE DRAIN BAG.
[2017-04-08 03:28] LABS: CKMB 8.5 U/L (0.0-3.6); CREATINE KINASE 129 UL (21-232)
[2017-04-08 03:37] LABS: TROPONIN-I 2.388 ng/mL (0.000-0.060)
[2017-04-08 10:12] LABS: BASOPHILS 0.6 % (0-2); EOSINOPHILS 2.7 % (0-7); HEMATOCRIT 32.4 % (42.0-54.0); HEMOGLOBIN 10.5 g/dL (13.5-17.5); IMMATURE GRANULOCYTES 0.2 % (0-5); MCH 28.5 pg (26.0-34.0); MCHC 32.4 g/dL (31.0-37.0); MEAN PLATELET VOLUME 10.1 fL (7.4-10.4); MONOCYTES 11.4 % (2-11); NEUTROPHILS 68.1 % (40-80); PLATELET COUNT 202 10x3/uL (130-400); RBC 3.68 10x6/uL (4.20-6.10); RDW 15.1 % (11.5-14.5); WBC 5.3 10x3/uL (4.8-10.8)
[2017-04-08 10:26] LABS: ANION GAP 13.8 mmol/L (8-16); CALCIUM 8.1 mg/dL (8.5-10.1); CARBON DIOXIDE 28.5 mmol/L (21.0-32.0); CREATININE - SERUM 2.9 mg/dL (0.6-1.3); POTASSIUM - SERUM 4.3 mmol/L (3.5-5.1)
[2017-04-08 10:45] LABS: CREATINE KINASE 153 UL (21-232)
[2017-04-08 10:46] LABS: TROPONIN-I 9.833 ng/mL (0.000-0.060)
--- NOTE | 2017-04-08 14:29 | NUR ---
PAGED DR. RUBY X2 REGARDING HOME MEDICATION RESTART. AWAITING CALL BACK
--- NOTE | 2017-04-08 20:00 | NUR ---
PT RESTING IN BED. ALERT/ORIENTED. PIV TO RIGHT A/C WITH NS @ 100ML/HR. SUPRAPUBIC CATH PATENT TO BEDSIDE DRAIN BAG. SR PER TELEMETRY. SEE ASSESSMENT AND CPOC.
[2017-04-09 04:00] VITALS: BP 100/50
[2017-04-09 06:22] LABS: BASOPHILS 0.3 % (0-2); EOSINOPHILS 3.6 % (0-7); HEMATOCRIT 33.1 % (42.0-54.0); HEMOGLOBIN 10.6 g/dL (13.5-17.5); IMMATURE GRANULOCYTES 0.3 % (0-5); LYMPHOCYTES 20.8 % (15-50); MCH 28.1 pg (26.0-34.0); MCV 87.8 fL (80.0-100.0); MEAN PLATELET VOLUME 9.9 fL (7.4-10.4); MONOCYTES 7.2 % (2-11); NEUTROPHILS 67.8 % (40-80); PLATELET COUNT 203 10x3/uL (130-400); RBC 3.77 10x6/uL (4.20-6.10); WBC 6.1 10x3/uL (4.8-10.8)
[2017-04-09 06:35] LABS: ANION GAP 11.2 mmol/L (8-16); CALCIUM 7.8 mg/dL (8.5-10.1); CARBON DIOXIDE 29.9 mmol/L (21.0-32.0); CREATININE - SERUM 2.7 mg/dL (0.6-1.3); POTASSIUM - SERUM 4.1 mmol/L (3.5-5.1)
[2017-04-09 08:49] VITALS: BP 118/73
--- NOTE | 2017-04-09 09:45 | NUR ---
TELEMETRY SR. RESP UL ON 02 2L IA. NPO FOR [facility]. WILL CONT. PLAN OF CARE.
[2017-04-09 11:58] VITALS: BP 116/67
--- NOTE | 2017-04-09 13:40 | NUR ---
PRE-OPS GIVEN. TO DIE EQUIPMENT OPERATOR BY BED.
--- NOTE | 2017-04-09 15:14 | NUR ---
BACK FROM WINCHMAN/CRANE OPERATOR. VS WNL. RIGHT GROIN STABLE WITHOUT BLEEDING OR HEMATOMA NOTED. WILL MONITOR.
[2017-04-09 19:00] VITALS: BP 117/72
--- NOTE | 2017-04-09 19:15 | NUR ---
RECEIVED REPORT, WILL ASSUME CARE OF PT, BED IS LOW, SRX2, CALL LIGHT IN REACH, WILL CONTINUE CARE OF PLAN
[2017-04-10 01:39] VITALS: BP 119/71
--- NOTE | 2017-04-10 03:11 | NUR ---
ASSESSMENT COMPLETE, SEE FLOWSHEET, PT IS RESTING, BED IS LOW, SRX2, CALL LIGHT IN REACH, CONSENT ARE SIGNED
--- NOTE | 2017-04-10 04:00 | NUR ---
MANAGER [employer] AT BEDSIDE TO OBTAIN VITALS, CALL LIGHT IN REACH. WILL CONTINUE WITH PLAN OF CARE.
[2017-04-10 05:32] VITALS: BP 113/73; BP 92/52
[2017-04-10 05:51] LABS: BASOPHILS 0.3 % (0-2); EOSINOPHILS 2.1 % (0-7); HEMOGLOBIN 10.8 g/dL (13.5-17.5); IMMATURE GRANULOCYTES 0.3 % (0-5); LYMPHOCYTES 5.7 % (15-50); MCH 28.2 pg (26.0-34.0); MCHC 31.8 g/dL (31.0-37.0); MCV 88.8 fL (80.0-100.0); MEAN PLATELET VOLUME 10.2 fL (7.4-10.4); MONOCYTES 6.5 % (2-11); NEUTROPHILS 85.1 % (40-80); PLATELET COUNT 214 10x3/uL (130-400); RBC 3.83 10x6/uL (4.20-6.10); RDW 15.3 % (11.5-14.5); WBC 7.2 10x3/uL (4.8-10.8)
[2017-04-10 06:13] LABS: ANION GAP 13.8 mmol/L (8-16); CALCIUM 8.5 mg/dL (8.5-10.1); CARBON DIOXIDE 29.4 mmol/L (21.0-32.0); CREATININE - SERUM 2.8 mg/dL (0.6-1.3)
[2017-04-10 06:19] LABS: POTASSIUM - SERUM 5.2 mmol/L (3.5-5.1)
--- NOTE | 2017-04-10 08:04 | NUR ---
ASSESSMENT DONE. DENIES NEEDS.
[2017-04-10 09:34] VITALS: BP 118/78
[2017-04-10] MEDS ORDERED: PLAVIX75 MG PO (11:50)
[2017-04-10 12:17] VITALS: BP 126/78
--- NOTE | 2017-04-10 14:50 | NUR ---
DC AND RX GIVEN TO PT
--- NOTE | 2017-04-10 14:53 | NUR ---
DC HOME PER PERSONAL CARE.
--- NOTE | 2017-04-10 16:07 | NUR ---
Patient Name: NENA BHATTI Admission Status: ER Accout number: [id number] Admission Date: 04-09-2017 : 1950 Admission Diagnosis: Attending: GEORGINA, Current LOS: 1 Anticipated DC Date: 04-10-2017 Planned Disposition: Home Primary Insurance: MEDICARE A & B LATE ENTRY: Discharge Planning Comments: * Is the patient Alert and Oriented? Yes 0 * How many steps to enter\exit or inside your home? RAMP 0 * PCP DR. ERICKSON 0 * Pharmacy [facility] [address] 0 * Preadmission Environment Home with Family 0 * ADLs Independent 0 * Equipment [facility] Hospital Bed Génesis Lift Other Shower Chair Wheelchair 0 * Other Equipment ELECTRIC WHEELCHAIR CONVERSION HOPE WITH LIFT AND HAND CONTROLS NO MEDICAL EQUIPMENT PROVIDER PREFERENCE 0 * List name and contact numbers for known caregivers / representatives who currently or will assist patient after discharge: INDY BHATTI, SPOUSE, 0 * Community resources currently utilized None 0 * Please name any agencies selected above. NONE 0 * Additional services required to return to the preadmission environment? No 0 * Can the patient safely return to the preadmission environment? Yes 0 * Has this patient been hospitalized within the prior 30 days at any hospital? Yes 0 CM MET WITH PT AND SPOUSE IN ROOM TO DISCUSS DISCHARGE PLANNING AND NEEDS. PT REPORTS LIVING AT HOME INDEPENDENTLY WITH SPOUSE. PT REPORTS HAVING ALL NEEDED MEDICAL EQUIPMENT AND NO OUTSIDE SERVICES ASSISTING IN THE HOME. CM DISCUSSED AVAILABILITY OF HOME HEALTH, REHAB SERVICES AND MEDICAL EQUIPMENT. PT DENIES DISCHARGE NEEDS, REPORTS HIS IS HERE TO PICK HIM UP FOR DISCHARGE HOME NOW. CM ASKED IF PT WOULD BE INTERESTED IN HAVING HOME HEALTH TO CALL AND CHECK ON HIM AFTER DISCHARGE HOME TO ENSURE THAT HE NEEDS NO SERVICES AT HOME. PT DECLINED AND REPORTS HE HAD TWO STENTS AND HE IS ALREADY FEELING BETTER. IMPORTANT MESSAGE FROM MEDICARE PROVIDED AND EXPLAINED. Biomedical Service Engineer: Mac Valdez
== END 2017-04-10 14:54 | disposition home or self-care (01) | DRG 247 ==
LOC: D.ER 18:48 → D.M2 20:59 → OBSVTIME 20:59 → D.M2 04-09 17:10
PROVIDERS: Emergency Medicine Emergency Medical Services; Family Medicine; Internal Medicine Interventional Cardiology; ADMIT Family Medicine
PROC: B2151ZZ Fluoroscopy of Left Heart using Low Osmolar Contrast (ICD-10-PCS; principal; 2017-04-09 13:00)
PROC: B2111ZZ Fluoroscopy of Multiple Coronary Arteries using Low Osmolar Contrast (ICD-10-PCS; principal; 2017-04-09 13:00)
PROC: 4A023N7 Measurement of Cardiac Sampling and Pressure, Left Heart, Percutaneous Approach (ICD-10-PCS; principal; 2017-04-09 13:00)
PROC: B2121ZZ Fluoroscopy of Single Coronary Artery Bypass Graft using Low Osmolar Contrast (ICD-10-PCS; principal; 2017-04-09 13:00)
PROC: 027036Z Dilation of Coronary Artery, One Artery with Three Drug-eluting Intraluminal Devices, Percutaneous Approach (ICD-10-PCS; principal; 2017-04-09 13:00)
DX: I21.4 Non-ST elevation (NSTEMI) myocardial infarction (principal); I13.0 Hypertensive heart and chronic kidney disease with heart failure and stage 1 through stage 4 chronic kidney disease, or unspecified chronic kidney disease; N18.4 Chronic kidney disease, stage 4 (severe); I50.22 Chronic systolic (congestive) heart failure; I25.10 Atherosclerotic heart disease of native coronary artery without angina pectoris; E11.65 Type 2 diabetes mellitus with hyperglycemia; E11.22 Type 2 diabetes mellitus with diabetic chronic kidney disease; I73.9 Peripheral vascular disease, unspecified; I48.2 Chronic atrial fibrillation; J44.9 Chronic obstructive pulmonary disease, unspecified; D63.1 Anemia in chronic kidney disease

== ENCOUNTER 2017-07-01 16:41 | Inpatient (IN) | payer MEDICARE, BC ==
[~2017-07-01] VITALS: Ht 124.5 cm; Wt 89.1 kg
[~2017-07-01 16:41] MED LIST changes: +PLAVIX75 MG PO
[2017-07-01 17:53] LABS: BASOPHILS 0.6 % (0-2); EOSINOPHILS 0.7 % (0-7); HEMATOCRIT 35.5 % (42.0-54.0); HEMOGLOBIN 11.1 g/dL (13.5-17.5); IMMATURE GRANULOCYTES 0.3 % (0-5); LYMPHOCYTES 12.3 % (15-50); MCH 27.4 pg (26.0-34.0); MCHC 31.3 g/dL (31.0-37.0); MCV 87.7 fL (80.0-100.0); MEAN PLATELET VOLUME 9.9 fL (7.4-10.4); MONOCYTES 5.6 % (2-11); NEUTROPHILS 80.5 % (40-80); PLATELET COUNT 360 10x3/uL (130-400); RBC 4.05 10x6/uL (4.20-6.10); WBC 9.4 10x3/uL (4.8-10.8)
[2017-07-01 18:13] LABS: APPEARANCE HAZY (CLEAR); BILIRUBIN NEGATIVE (NEGATIVE); COLOR DK YELLOW (YELLOW); GLUCOSE NEGATIVE (NEGATIVE); KETONE NEGATIVE (NEGATIVE); NITRITE NEGATIVE (NEGATIVE); PROTEIN 3+ mg/dL (NEGATIVE); UROBILINOGEN NORMAL (NORMAL)
[2017-07-01 18:14] LABS: RED CELLS - URINE 25-50 /hpf (0-5); WHITE CELLS - URINE >50 /hpf (0-5)
[2017-07-01 18:15] LABS: BACTERIA MODERATE /hpf (NONE SEEN)
[2017-07-01 18:18] LABS: ALBUMIN 3.7 g/dL (3.4-5.0); ANION GAP 19.2 mmol/L (8-16); BILIRUBIN - TOTAL 2.6 mg/dL (0.2-1.3); CALCIUM 9.6 mg/dL (8.5-10.1); CARBON DIOXIDE 24.4 mmol/L (21.0-32.0); POTASSIUM - SERUM 5.6 mmol/L (3.5-5.1); PROTEIN - SERUM 8.4 g/dL (6.4-8.2)
[2017-07-01 18:26] LABS: TROPONIN-I 0.027 ng/mL (0.000-0.060)
[2017-07-01] MEDS ORDERED: PROTONIX40 MG PO (20:15)
[2017-07-01] MEDS ORDERED: BACTRIM DS TABL1 TAB PO (20:16)
--- NOTE | 2017-07-01 21:00 | NUR ---
NEW ADMISSION AT 1945- PT RECEIVED FROM THE ER W/ DX OF DEHYDRATION, UTI, AND RENAL INSUFFICIENCY. PT CAME TO THE FLOOR SOILED IN HIS ELECTRIC WHEELCHAIR FROM HOME. ASSISTED PT INTO BED TO GET CLEANED UP W/ PAYROLL PROFESSIONAL, BUT PT BEGAN TO BECOME ACUTELY SOB W/ PALE ASHY COLOR. ON THE FLOOR TO ASSESS PT. AT HOME, PT WEARS 2.5-3L OF OXYGEN AT HS, SO O2 APPLIED. MED RECONCILLIATION COMPLETED WITH PT'S OVER THE TELEPHONE B/C PT DID NOT KNOW WHAT MEDS HE TAKES. PT IS ALERT & ORIENTED X3, BUT STATES HANDLES THAT. ORDERED UPDRAFTS, EKG AND SERIAL ENZYMES. PT IS A DOUBLE AKA AMPUTEE AND HE ALSO RECENTLY HAD HIS LEFT RING FINGER AMPUTATED WELL. PT W/ HX OF NONCOMPLIANT DM. PT CAME WITH IVF, NS @ 100CC/HR, BUT MD CHANGED TO D5NS@ 100CC/HR. PT IS AFEBRILE, BUT TACHYCARDIC. ON THE MONITOR HE IS IN FIRST DEGREE AV BLOCK, SINUS TACHY W/ RATE 103. AFTER UPDRAFTS AND OXYGEN, PT DID IMPROVE AND WAS ABLE TO SLEEP AFTER GETTING ALL CLEANED UP AND SETTLED INTO BED. WILL CONT TO MONITOR.
[2017-07-01 21:53] LABS: CKMB 1.8 U/L (0.0-3.6); CREATINE KINASE 138 UL (21-232); TROPONIN-I 0.025 ng/mL (0.000-0.060)
[2017-07-01 22:23] VITALS: BP 131/82
[2017-07-02] VITALS (7 sets, daily range): BP systolic 97–147; BP diastolic 76–93; Ht 124.5 cm; Wt 89.1 kg
--- NOTE | 2017-07-02 03:00 | NUR ---
PT WOKE UP AND BECAME SOB WITH MILD ACUTE RESP DISTRESS. PT'S OXYGEN IS ON 3L. LUNG SOUNDS CLEAR, BUT DIMINISHED WITH NO WHEEZING. SO FAR, CARDIAC WORK-UP UNREMARKABLE, NO EVIDENCE OF [place]/ACS. PT REPOSITIONED AND PULLED UP IN BED, RAISED HOB TO NEARLY 90 DEGREES PER PATIENT REQUEST. AFTER BEING REPOSITIONED, PT STATED THAT HE COULD BREATHE EASIER. OXYGEN SAT 96%, WILL CONT TO MONITOR.
[2017-07-02 04:29] LABS: BASOPHILS 0.3 % (0-2); EOSINOPHILS 0.3 % (0-7); HEMATOCRIT 31.6 % (42.0-54.0); HEMOGLOBIN 9.9 g/dL (13.5-17.5); IMMATURE GRANULOCYTES 0.2 % (0-5); LYMPHOCYTES 11.1 % (15-50); MCH 27.3 pg (26.0-34.0); MCHC 31.3 g/dL (31.0-37.0); MCV 87.3 fL (80.0-100.0); MEAN PLATELET VOLUME 9.8 fL (7.4-10.4); NEUTROPHILS 82.1 % (40-80); RBC 3.62 10x6/uL (4.20-6.10); RDW 15.9 % (11.5-14.5); WBC 8.7 10x3/uL (4.8-10.8)
[2017-07-02 04:30] LABS: PLATELET COUNT 282 10x3/uL (130-400)
[2017-07-02 05:03] LABS: CALC OSMOLALITY 296 mosm/kg (275-300); CALCIUM 8.3 mg/dL (8.5-10.1); CARBON DIOXIDE 22.4 mmol/L (21.0-32.0); CHLORIDE - SERUM 102 mmol/L (98-107); CKMB 1.5 U/L (0.0-3.6); CREATINE KINASE 88 UL (21-232); CREATININE - SERUM 2.9 mg/dL (0.6-1.3); GLUCOSE 164 mg/dL (74-106); SODIUM 137 mmol/L (136-145); TROPONIN-I 0.027 ng/mL (0.000-0.060); UREA NITROGEN 65 mg/dL (7-18); eGFR NON AFRICAN AMERICAN 23 mL/min (90-120)
[2017-07-02 05:08] LABS: POTASSIUM - SERUM 4.7 mmol/L (3.5-5.1)
--- NOTE | 2017-07-02 08:02 | NUR ---
AM ROUNDS - PT IS IN BED AND APPEARS TO BE SLEEPING WITH EQUAL AND NON LABORED BREATHING. IV TO LEFT FA, 20G, D5NS AT 100CC/HR. MONITOR SHOWING SR, BBB, 1ST DEG AV BLOCK, HR 79. BED AT LOWEST POSITION. CALL SEALS IN REACH. SIDE RAILS UP X2. WILL CONTINUE TO MONITOR
--- NOTE | 2017-07-02 09:53 | HP ---
PATIENT: NENA BHATTI MEDICAL RECORD: [id number] ACCOUNT: [id number] LOCATION:[address] : [birth year] ADMISSION DATE: 07/01/17 HISTORY AND PHYSICAL EXAMINATION HISTORY OF PRESENT ILLNESS: Mr. Bhatti is a 66-year-old white male, patient of Dr. Galindo, who presents with 2-3 days history of nausea and vomiting to the Emergency Room. He has bilateral mrjof-mgk-dvfm amputations secondary to complications from diabetes. He recently had finger on his left hand amputated. He is evaluated in the ER and found to have some renal insufficiency with dehydration and hyperkalemia. He is now being admitted for fluids, may have a urinary tract infection. However, he has a chronic suprapubic catheter in place, so this could be a little hard to tell. PAST MEDICAL HISTORY: Significant for COPD complicated by peripheral vascular disease and neuropathy, coronary artery disease, history of CHF, COPD, home O2, cardiac arrhythmia, and cirrhosis. PAST SURGICAL HISTORY: Include CABG, PTCA with stents, suprapubic catheter placement, pacemaker with defibrillator, bilateral above-knee amputations, recent amputation of left ring finger. ALLERGIES OR INTOLERANCES: None known. HOME MEDICATIONS: Include bumetanide 2 mg b.i.d., multivitamin, insulin sliding scale, fluticasone HFA 1 puff b.i.d., sotalol 80 mg b.i.d., aspirin a day, Nasreen 60 a day, Flonase nasal spray b.i.d. p.r.n. congestion, tramadol 50 q.6 p.r.n., Butrans patch 10 mcg per hour, pantoprazole 40 mg a day, and was about to finish a course of Bactrim-DS 1 p.o. b.i.d. FAMILY HISTORY: Noncontributory. SOCIAL HISTORY: Does not smoke or drink. Lives here in town with his . REVIEW OF SYSTEMS: Significant for fatigue. Uncertain of any fever. He has had nausea and vomiting. No chest pain. Shortness of breath is at baseline. PHYSICAL EXAMINATION: GENERAL: He is sitting up in a wheelchair, appears moderately ill at this time, he is in no distress. HEENT: Normocephalic. Mucous membranes appear dry. NECK: Soft and supple. HEART: Slightly tachycardic, but regular. LUNGS: Clear. ABDOMEN: Soft. Suprapubic catheter is in place. EXTREMITIES: He has got a bandage on his left hand. He has had bilateral above-knee amputations. IMPRESSION: 1. Dehydration/renal insufficiency/hyperkalemia. 2. Diabetes mellitus complicated by peripheral vascular disease and neuropathy. 3. Coronary artery disease with previous PTCA and stents. 4. O2 dependent at night. 5. History of congestive heart failure. HISTORY AND PHYSICAL [id number] NENA BHATTI PLAN: Admit, IV fluids, Kayexalate times 1, telemetry. See orders for plan. TRANSINT:[id number] Voice Confirmation ID: [id number] DOCUMENT ID: [id number] PABLO PINEDO DO at 0953 CC: [id number] DICTATION DATE: 07/01/172037 FIELD CHECKER: 07/02/17 0157 ADM IN [place] [id number] [place] [address]
[2017-07-02 11:16] LABS: CKMB 2.1 U/L (0.0-3.6); CREATINE KINASE 106 UL (21-232); TROPONIN-I 0.034 ng/mL (0.000-0.060)
--- NOTE | 2017-07-02 15:58 | NUR ---
I SPOKE WITH SHY EID AND DR PINEDO FOR DVT COVERAGE ON THIS PATIENT. LIZA BRAY, PRIMARY RN ALSO SPOKE WITH THEM. THEY SAID THEY WOULD ADDRESS THIS WHEN ROUNDS MADE.
--- NOTE | 2017-07-02 17:51 | NUR ---
PT IS AWAKE AND IN BED AT THIS TIME. NO NEEDS. WILL CONTINUE TO MONITOR
--- NOTE | 2017-07-02 22:11 | NUR ---
PT AWAKE, ALERT, ORIENTED, LYING IN BED. PT DID NOT WANT THIS HS INSULIN FOR FSBS OF 183, HE DOES NOT WANT TO DROP TOO LOW DURING HIS SLEEP. NO OTHER NEEDS. CONTINUE TO MONITOR CLOSELY.
--- NOTE | 2017-07-03 04:36 | NUR ---
SHIPPING AND RECEIVING COORDINATOR AT BEDSIDE TO OBTAIN VITALS, WILL CONTINUE TO MONITOR. CALL LIGHT IN REACH.
--- NOTE | 2017-07-03 08:02 | NUR ---
AM ROUNDS - PT IS IN BED AND AWAKE AT THIS TIME. PT ON 2L O2 VIA NC. IV TO LEFT FA, D5NS AT 50CC/HR. MONIOTR SHOWING SR, BBB, 1ST DEGREE BLOCK. BILAT AKA. BED AT LOWEST POSITION. CALL SEALS IN USE/REACH. SIDE RAILS UP X2. WILL OTNINUE TO MONITOR
[2017-07-03 08:36] LABS: BASOPHILS 0.5 % (0-2); HEMATOCRIT 34.2 % (42.0-54.0); HEMOGLOBIN 10.6 g/dL (13.5-17.5); IMMATURE GRANULOCYTES 0.2 % (0-5); LYMPHOCYTES 10.6 % (15-50); MCH 27.5 pg (26.0-34.0); MCV 88.8 fL (80.0-100.0); MEAN PLATELET VOLUME 9.9 fL (7.4-10.4); MONOCYTES 5.7 % (2-11); PLATELET COUNT 274 10x3/uL (130-400); RBC 3.85 10x6/uL (4.20-6.10); RDW 16.3 % (11.5-14.5); WBC 9.3 10x3/uL (4.8-10.8)
[2017-07-03 08:44] LABS: ANION GAP 15.1 mmol/L (8-16); CALCIUM 8.5 mg/dL (8.5-10.1); CARBON DIOXIDE 24.4 mmol/L (21.0-32.0); CREATININE - SERUM 3.1 mg/dL (0.6-1.3); POTASSIUM - SERUM 4.5 mmol/L (3.5-5.1)
[2017-07-03 08:53] VITALS: BP 132/84
[2017-07-03 11:57] VITALS: BP 130/84
[2017-07-03 15:09] VITALS: BP 126/79
--- NOTE | 2017-07-03 18:51 | NUR ---
PT IN BED WATCHING TV AT THIS TIME. NO NEEDS. WILL CONTINUE OT MONITOR
--- NOTE | 2017-07-03 19:56 | NUR ---
PT AWAKE, ALERT, ORIENTED, REQUESTING TO BE REPOSITIONED AND MOVED UP IN THE BED. PT STATES HE HAS NOT HAD A GOOD DAY, AND JUST DOES NOT FEEL GOOD. NO NEEDS. CONTINUE TO MONITOR CLOSELY. BED LOW, CALL LIGHT IN REACH, SIDE RAILS X 2, HOB 40 DEGREES AT THIS TIME AFTER REPOSITIONING PT AND PULLING HIM UP IN BED.
[2017-07-03 21:18] VITALS: BP 129/75
--- NOTE | 2017-07-03 21:46 | NUR ---
PT HAS HAD GREAT DIFFICULTY SINCE BEGINNING OF MY SHIFT, C/O INCREASED SOB, WITH INCREASED ANXIETY, DIFFICULT TO CONSOLE, AND REQUIRING MULTIPLE REPOSITIONING AND TURNING. PT HAS BEEN YELLING OUT "HELP, I CANNOT BREATH" MULTIPLE TIMES. PTS LUNGS ARE CLEAR, HOWEVER, RESPIRATORY WAS PAGED AND DID ADMINISTER PTS PRN INHALER. I SPOKE WITH LUCILLE VASQUEZ PRESS BUCKER FOR [facility], WHO DID ORDER A CHEST X-RAY AND PLAIN ROBITUSSIN Q 6 HOURS PRN COUGH. PT HAS BEEN COUGHING EXCESSIVEL, EVEN WITH THE SCHEDULED TESSALON PERLES. LUCILLE VASQUEZ DID NOT WANT TO ADD ANYTHING ELSE AND ADVISED ME TO CALL RENAL. I SPOKE WITH CITLALI STEIN PRESS BUCKER FOR [facility] WHO DID ORDER ATIVAN 1MG PO WITH A REPEAT DOSE Q 2 HOURS LATER PRN. I FEEL PT IS HAVING AN ANXIETY ATTACH AT THIS TIME. PTS V/S REMAIN STABLE, O2 VIA NC @ 2LPM IS 100%, LUNGS CLEAR. PT STATES HE DOES TAKE BUMEX AT HOME, 2MG BID, AND HE DOES HAVE PROBLEMS WITH WATER RETENTION. WILL ADMINISTER ATIVAN AND CONTINUE TO MONITOR PT CLOSELY.
--- NOTE | 2017-07-03 22:35 | NUR ---
PT BEGAN VOMITING IMMEDIATELY AFTER TAKING THE ROBITUSSIN, WHICH ALSO INCLUDED THE ATIVAN GIVEN BEFORE THE ROBITUSSIN. EMESIS HAD FOOD PARTICLES, IN WHICH PT STATES WAS FROM LUNCH, HE DID NOT EAT DINNER. PRN ZOFRAN GIVEN ALONG WITH A COLD WASH CLOTH ON PTS FOREHEAD. PT IS CURRENTLY RESTING COMFORTABLY, RESPIRATIONS EVEN AND UNLABORED, HOB 40 DEGREES. CONTINUE TO MONITOR CLOSELY.
--- NOTE | 2017-07-03 23:36 | NUR ---
SECOND CALL INTO DAREK STEIN R/T PTS BREATHING, ANXIETY, RESTLESSNESS, AND INABILITY TO BE CONSOLED. DURING MIDNIGHT V/S ROUNDS BY FIRE EXTINGUISHER TECHNICIAN, SHE WAS ALSO DOING HER DAILY WEIGHTS. PT HAS BEEN WEIGHED ON THE SAME BED SCALE SINCE ADMISSION. PTS WEIGHT HAS CHANGED ACCORDING TO HIS BED SCALE INITIALLY FROM 185 TO NOW 215 LBS. THIS INFORMATION WAS GIVEN TO DAREK WHO THEN ORDERED LASIX 40MG IV X 1, AND ATIVAN 2MG IV X 1 R/T PTS NOW INCREASED RESPIRATIONS AND STILL LOUDLY STATING HE CANNOT BREATH. PTS SINGER AT TIME OF LASIX ADMINISTRATION SHOWED 75MLS. WILL MONITOR PTS OUT PUT CAREFULLY. PT IS CURRENTLY USING HIS ACCESSORY MUSCLES TO BREATH AT THIS TIME, BUT IS RESTING SINCE THE ATIVAN. WILL CONTINUE TO MONITOR PT CLOSELY AND FREQUENTLY.
[2017-07-04] VITALS (16 sets, daily range): BP systolic 111–145; BP diastolic 77–94
--- NOTE | 2017-07-04 00:52 | NUR ---
PT RESTING COMFORTABLY, EASILY ROUSABLE TO VERBAL STIMULI, MILDLY SEDATED R/T THE IV ATIVAN. PTS BREATHING HAS MILDLY IMPROVED AND LESS RAPID, HOWEVER, STILL LABORED AT TIMES. NO INCREASE IN URINE OUTPUT AT THIS TIME. CONTINUE TO MONITOR CLOSELY AND FREQUENTLY.
--- NOTE | 2017-07-04 03:30 | NUR ---
PT RESTING COMFORTABLY, BREATHING MILDLY IMPROVED, NO URINE OUTPUT PER SUPRAPUBIC CATHETER WHICH STILL MEASURES ONLY 75MLS. PT ROUSES TO VERBAL STIMULI, CONTINUE TO MONITOR CLOSELY. BED LOW, CALL LIGHT IN REACH, SIDE RAILS X 2, HOB 40 DEGREES, O2 VIA NC @ 2 LPM.
--- NOTE | 2017-07-04 04:25 | NUR ---
RAPID RESPONSE CALLED R/T PT BEING DIAPHORETIC AND COLD. V/S ARE WNL AND PT IS ROUSABLE TO VERBAL STIMULI, BUT DEMONSTRATES GREAT LETHARGY AND GENERALIZED WEAKNESS. AWAITING STAT LABS, WILL CALL RENAL FOR FURTHER ORDERS.
[2017-07-04 04:32] LABS: BASOPHILS 0.1 % (0-2); EOSINOPHILS 0.1 % (0-7); HEMOGLOBIN 12.5 g/dL (13.5-17.5); IMMATURE GRANULOCYTES 0.6 % (0-5); LYMPHOCYTES 6.2 % (15-50); MCH 27.8 pg (26.0-34.0); MCHC 31.3 g/dL (31.0-37.0); MCV 89.1 fL (80.0-100.0); MEAN PLATELET VOLUME 10.1 fL (7.4-10.4); MONOCYTES 6.9 % (2-11); NEUTROPHILS 86.1 % (40-80); PLATELET COUNT 309 10x3/uL (130-400); RBC 4.49 10x6/uL (4.20-6.10); RDW 17.2 % (11.5-14.5); WBC 10.9 10x3/uL (4.8-10.8)
[2017-07-04 04:56] LABS: ALBUMIN 3.4 g/dL (3.4-5.0); BILIRUBIN - TOTAL 2.87 mg/dL (0.2-1.3); CALCIUM 8.6 mg/dL (8.5-10.1); CARBON DIOXIDE 18.4 mmol/L (21.0-32.0); CREATININE - SERUM 3.5 mg/dL (0.6-1.3); PROTEIN - SERUM 8.1 g/dL (6.4-8.2)
[2017-07-04 04:58] LABS: ANION GAP 23.5 mmol/L (8-16)
[2017-07-04 04:59] LABS: POTASSIUM - SERUM 6.9 mmol/L (3.5-5.1)
--- NOTE | 2017-07-04 05:37 | NUR ---
DAREK STEIN PRINT CUTTER FOR [facility] CALLED BACK WITH VERBAL ORDERS FOR IV GENTAMYCIN 80MG X 1, IV VANCOMYCIN 1GM X 1, LACTULOSE 30MLS X 1, BLOOD CULTURES X 2, STAT SERUM K+. PT REMAINS ROUSABLE TO VERBAL STIMULI, AND DOES ROUSE SPONTANEOUSLY AT TIMES, MILDLY CONFUSED, BUT EASILY ORIENTED. CONTINUE TO MONITOR PT CLOSELY.
--- NOTE | 2017-07-04 05:47 | NUR ---
PT AWAKE, ALERT, DID TAKE THE PO LACTULOSE VIA SYRINGE WITH SMALL AMOUNTS GIVEN SEVERAL TIMES OVER A FEW MINUTES SO PT WOULD NOT ASPIRATE. PT KNOWS HE IS IN THE HOSPITAL BUT CONFUSED TO WHERE. I AM WAITING FOR PHARMACY TO ARRIVE SO I CAN START PTS GENTAMYCIN BEFORE ADMINISTERING VANCOMYCIN. PT DENIES ANY NEEDS. CONTINUE TO MONITOR PT CLOSELY.
--- NOTE | 2017-07-04 06:22 | NUR ---
BLOOD CULTURES AND STAT LAB JUST DRAWN, WILL START IV VANCOMYCIN PHARMACY HAS NOT BROUGHT THE GENTAMYCIN UP YET. PT REMAINS LETHARGIC BUT EASILY ROUSABLE TO VERBAL STIMULI. CONTINUE TO MONITOR CLOSELY.
[2017-07-04 06:44] LABS: POTASSIUM - SERUM 5.7 mmol/L (3.5-5.1)
--- NOTE | 2017-07-04 09:48 | NUR ---
PT VERY SLEEPING BUT AROUSES. LUNGS ARE CLEAR. COLOR IS VERY PALE. 02 IS AT 2 L PER NC. SUPRAPUBIC CATH IS DRAINING CONCERATED URINE. MONITOR SHOWS PACE AT 85. WILL MONITOR CONTINUOUSLY. STILL WAITING FOR ICU BED.
--- NOTE | 2017-07-04 11:25 | NUR ---
AM ROUNDS - PT IN ROOM AND IS AWAKE. PT LEFT FOR A CT THIS MORNING AND HAS COME BACK. PT IN ON 2L O2 VIA NC. IV TO LEFT FA, D5NS AT 20CC/HR. SUPRAPUBIC CATH, DRAINING. BED AT LOWEST POAITION. CALL SEALS IN USE/REACH. SIDE RAILS UP X2. WILL CONTINUE TO MONITOR
--- NOTE | 2017-07-04 11:51 | NUR ---
REPORT GIVEN TO NICKY BASSETT IN ICU. TO ICU.VIA BED.
--- NOTE | 2017-07-04 11:53 | NUR ---
CELL PHONE IN VALUABLE BAG THAT ACCOMPANIED PT TO ICU.
--- NOTE | 2017-07-04 12:05 | NUR ---
REC'D TO ROOM 2308 VIA BED. TRANSFERRED TO ICU BED BY TOTAL LIFT. CONNECTED TO MONITOR AND VS OBTAINED. SEE FLOWSHEET FOR ASSESSMENT.
--- NOTE | 2017-07-04 13:20 | NUR ---
Nutrition Follow Up: Pt was asleep at the time of RD visit and has since been transferred to ICU. Chart reviewed. Pt is eating 79% meal avg on a diabetic diet. +BM 07/02/17. Meds and labs reviewed. Rec continue current diet. RD following.
[2017-07-04 13:55] LABS: INR 3.17 (0.85-1.17); PROTIME 32.8 SECONDS (11.6-15.0)
[2017-07-04 14:07] LABS: ALBUMIN 2.9 g/dL (3.4-5.0); ANION GAP 20.5 mmol/L (8-16); BILIRUBIN - TOTAL 2.4 mg/dL (0.2-1.3); CALCIUM 8.2 mg/dL (8.5-10.1); CREATININE - SERUM 3.8 mg/dL (0.6-1.3); POTASSIUM - SERUM 5.5 mmol/L (3.5-5.1); TROPONIN-I 0.039 ng/mL (0.000-0.060)
[2017-07-04 15:22] LABS: D-DIMER-QUANTITATIVE > 20.00 ug/mLFEU (0.20-0.54)
--- NOTE | 2017-07-04 16:15 | NUR ---
CRITICAL D DIMER RESULT PHONED TO DR. HAMMOND. NO NEW ORDERS.
--- NOTE | 2017-07-04 19:30 | NUR ---
RECIEVED REPORT, ASSESSMENT COMPLETE, PT A&O, STATES HE DOESN'T FEEL WELL, NO PAIN AT THIS TIME, CALL LIGHT IN REACH, SUPRA PUBIC CATH DRAINING CONCENTRATED URINE, WILL CONTINUE TO MONITOR
--- NOTE | 2017-07-04 20:15 | NUR ---
PM MEDS GIVEN, AT BEDSIDE, SOME COMPLAINTS OF NAUSEA ZOFRAN GIVEN OPER ORDER, DENIES NEEDS
[2017-07-04 21:11] LABS: CHOL - HDL RATIO 5.3 ratio (2.3-4.9); LDL-HDL RATIO 3.9 ratio (1.5-3.5)
--- NOTE | 2017-07-04 21:28 | NUR ---
PT SLEEPING, NO DISTRESS NOTED, BREATHING EVEN, AROUSES TO VOICE, WILL CONTINUE TO MONITOR
--- NOTE | 2017-07-04 23:21 | NUR ---
SLEEPING, AROUSED TO VOICE, REASSESSMENT COMPLETE NO ACUTE CHANGES NOTED, WILL CONTINUE TO MONITOR
[2017-07-05] VITALS (24 sets, daily range): BP systolic 109–181; BP diastolic 60–127
--- NOTE | 2017-07-05 01:18 | NUR ---
A&O, REPOSIITONED, TV TURNED ON, DENIES NEEDS, NO DISTRESS NOTED, WILL CONTINUE TO MONITOR
--- NOTE | 2017-07-05 03:24 | NUR ---
REPOSITIONED IN BED, DENIES NEEDS, CALL LIGHT IN REACH, WILL CONTINUE TO MONITOR
--- NOTE | 2017-07-05 05:10 | NUR ---
SLEEPING. NO DISTRESS NOTED, BREATHING UNLABORED, CALL LIGHT IN REACH, WILL CONTINUE TO MONITOR
[2017-07-05 06:55] LABS: BASOPHILS 0.1 % (0-2); EOSINOPHILS 0 % (0-7); HEMATOCRIT 34.5 % (42.0-54.0); HEMOGLOBIN 10.8 g/dL (13.5-17.5); IMMATURE GRANULOCYTES 0.3 % (0-5); LYMPHOCYTES 5.9 % (15-50); MCH 27.8 pg (26.0-34.0); MCHC 31.3 g/dL (31.0-37.0); MCV 88.9 fL (80.0-100.0); MEAN PLATELET VOLUME 10.2 fL (7.4-10.4); MONOCYTES 6.2 % (2-11); NEUTROPHILS 87.5 % (40-80); RBC 3.88 10x6/uL (4.20-6.10); RDW 17.9 % (11.5-14.5)
[2017-07-05 06:57] LABS: PLATELET COUNT 205 10x3/uL (130-400)
[2017-07-05 07:06] LABS: INR 4.49 (0.85-1.17); PROTIME 43.3 SECONDS (11.6-15.0)
[2017-07-05 07:16] LABS: ANION GAP 22.8 mmol/L (8-16); BILIRUBIN - TOTAL 2.8 mg/dL (0.2-1.3); CALCIUM 8.3 mg/dL (8.5-10.1); CARBON DIOXIDE 16.7 mmol/L (21.0-32.0); CREATININE - SERUM 4.1 mg/dL (0.6-1.3); GENTAMICIN - TROUGH 1.5 ug/mL (0.5-2.0); MAGNESIUM - SERUM 2.3 mg/dL (1.8-2.4); PHOSPHOROUS 7.2 mg/dL (2.5-4.9); POTASSIUM - SERUM 5.5 mmol/L (3.5-5.1); VANCOMYCIN - RANDOM 11.2 ug/mL (10.0-20.0)
--- NOTE | 2017-07-05 19:15 | NUR ---
SHIFT ASSESSMENT COMPLETE, SEE FLOWSHEET FOR COMPLETE DETAILS. PATIENT A&OX4, RR EVEN AND NONLABORED, LUNG SOUNDS CTA. S1S2. PM AND DEFIB IN UPPER LEFT CHEST. BOWEL SOUNDS ACTIVE. SUPRAPUBIC CATHETER HE HAD PRIOR TO ADMISSION DRAINING DARK YELLOW URINE. PATIENT IS A BILATERAL BKA AND HAS RING FINGER ON LEFT HAND AMPUTATED. DENIES NEED AT THIS TIME. VSS.
--- NOTE | 2017-07-05 19:35 | NUR ---
FOIL STAMP OPERATOR, NAUN CALLED FOR VIBRAMYCIN.
--- NOTE | 2017-07-05 21:00 | NUR ---
NIGHT MEDS GIVEN WITHOUT ISSUE. VSS.
--- NOTE | 2017-07-05 23:05 | NUR ---
REASSESSMENT COMPLETE, NO ACUTE CHANGES FROM PREVIOUS ASSESSMENT. SEE FLOWSHEET FOR DETAILS.
[2017-07-06] VITALS (21 sets, daily range): BP systolic 110–132; BP diastolic 72–93
--- NOTE | 2017-07-06 | NUR ---
FOOD AND DRINKS REMOVED FROM ROOM AND PATIENT MADE NPO.
--- NOTE | 2017-07-06 00:30 | NUR ---
LEFT FOREARM PIV INFILTRATED. 3 NURSES ATTEMPTED TO RESITE IV X9 STICKS WITHOUT SUCCESS. PATIENT'S VSS,
--- NOTE | 2017-07-06 03:00 | NUR ---
REASSESSMENT COMPLETE, NO ACUTE CHANGES, SEE FLOWSHEET FOR DETAILS.
--- NOTE | 2017-07-06 03:45 | NUR ---
ASSISSTED XRAY WITH INDY.
--- NOTE | 2017-07-06 05:00 | NUR ---
RESTING IN BED ON RIGHT SIDE WITH EYES CLOSED. VSS.
[2017-07-06 05:08] LABS: BASOPHILS 0.2 % (0-2); HEMATOCRIT 33.2 % (42.0-54.0); HEMOGLOBIN 10.4 g/dL (13.5-17.5); IMMATURE GRANULOCYTES 0.4 % (0-5); LYMPHOCYTES 9.9 % (15-50); MCH 26.9 pg (26.0-34.0); MCHC 31.3 g/dL (31.0-37.0); MEAN PLATELET VOLUME 10.7 fL (7.4-10.4); MONOCYTES 10.2 % (2-11); NEUTROPHILS 78.3 % (40-80); PLATELET COUNT 167 10x3/uL (130-400); RBC 3.86 10x6/uL (4.20-6.10); RDW 18.4 % (11.5-14.5); WBC 10.3 10x3/uL (4.8-10.8)
[2017-07-06 05:17] LABS: APTT 33.9 SECONDS (22.8-39.4)
[2017-07-06 05:18] LABS: INR 4.18 (0.85-1.17)
[2017-07-06 05:45] LABS: % SATURATION 29 % (15-55); IRON 55 ug/dl (35-150); TOTAL IRON BIND CAPACITY 187 ug/dl (260-445); UNSAT IRON BIND CAPACITY 132 ug/dl (150-375)
[2017-07-06 05:59] LABS: ALBUMIN 2.9 g/dL (3.4-5.0); BILIRUBIN - TOTAL 3.27 mg/dL (0.2-1.3); CALCIUM 7.8 mg/dL (8.5-10.1); CREATININE - SERUM 4.1 mg/dL (0.6-1.3); PRE-ALBUMIN 10.5 mg/dL (18.0-35.7); PROTEIN - SERUM 6.9 g/dL (6.4-8.2)
[2017-07-06 06:08] LABS: ANION GAP 22.6 mmol/L (8-16); POTASSIUM - SERUM 4.6 mmol/L (3.5-5.1)
--- NOTE | 2017-07-06 16:05 | NUR ---
0700; RECEIVED PT LAYIN IN BED, RESTING QUIETLY, NO DISTRESS NOTED, ALERT AND ORIENTED ABLE TO VOICE ALL WANTS AND NEEDS. SEE INITAIL ASSESSMENT. PIV ACCESS LOST DURING PREVIOUS SHIFT AND UNABLE TO OBTAIN NEW PIV, SURGEON CONSULTED FOR CENTRAL LINE PLACEMENT, DISCUSSED WITH PT AND CONSENT OBTAINED, SURGEON AWARE, AWAITING ON ARRIVAL. 0800 AM MEDS HELD DUE TO BEING NPO FOR PIPIDA SCAN AND NO IV ACCESS. 1000 SURGEON IN UNIT AND CENTRAL LINE PLACED TO RIGHT JUGULAR =, TOLERATED WELL. CHEST XRAY ORDERED AND OBTAINED 1045 IMAGING IN UNIT AND TOOK PT FOR SCAN 1300 RETURNED TO UNIT, FSBS OBTAINED AND OFFERED LUNCH, REFUSED AND ASK FOR TOMATO SOUP AND TEA, BOTH GIVEN AND MEDS GIVEN. 1500 CONTINUES TO REST QUIETLY NO S/S OF DISTRESS NOTED, VSS, ALERT AND ORIENTED.
--- NOTE | 2017-07-06 19:30 | NUR ---
REPORT RECIEVED. ASSESSMENT COMPLETED. SEE FLOW SHEET FOR FURTHER DETAILS. PT RESTIN IN BED. NO SIGN OF DISTRESS. WILL CONTINUE TO MONITOR PT.
--- NOTE | 2017-07-06 21:00 | NUR ---
NO VISITORS AT THIS TIME. CALL LIGHT IN REACH WILL CONTINUE TO MONITOR PT.
--- NOTE | 2017-07-06 23:00 | NUR ---
REASSESSMENT COMPLTED NO ACUTE CHANGES AT THIS TIME. POSITIONED FOR COMFORT WILL CONTINUE TO MONITOR.
[2017-07-07] VITALS (24 sets, daily range): BP systolic 113–138; BP diastolic 60–98
--- NOTE | 2017-07-07 01:00 | NUR ---
PT HAVING SOME NAUSEA AND VOMITING. TX WITH MEDS. PT POSITIONED FOR COMFORT WILL CONTINUE TO MONITOR PT.
--- NOTE | 2017-07-07 03:00 | NUR ---
REASSESSMENT COMPLETED. NO ACUTE CHANGES AT THIS TIME. SEE FLOW SHEET FOR DETAILS. POSITIONED FOR COMFORT WILL CONTINUE TO MONITOR PT.
--- NOTE | 2017-07-07 05:00 | NUR ---
PT AWAKE AND ORIENTATED. SITTING IN BED WATING TV. WILL CONTINUE TO MONITOR PT.
[2017-07-07 05:19] LABS: BASOPHILS 0.2 % (0-2); EOSINOPHILS 1.3 % (0-7); HEMATOCRIT 33.2 % (42.0-54.0); HEMOGLOBIN 10.9 g/dL (13.5-17.5); IMMATURE GRANULOCYTES 0.3 % (0-5); LYMPHOCYTES 9.2 % (15-50); MCH 28.2 pg (26.0-34.0); MCHC 32.8 g/dL (31.0-37.0); MCV 85.8 fL (80.0-100.0); MEAN PLATELET VOLUME 10.7 fL (7.4-10.4); MONOCYTES 9.9 % (2-11); NEUTROPHILS 79.1 % (40-80); PLATELET COUNT 177 10x3/uL (130-400); RBC 3.87 10x6/uL (4.20-6.10); RDW 18.8 % (11.5-14.5); WBC 10.5 10x3/uL (4.8-10.8)
[2017-07-07 05:33] LABS: INR 3.4 (0.85-1.17); PROTIME 34.8 SECONDS (11.6-15.0)
[2017-07-07 05:53] LABS: ALBUMIN 2.9 g/dL (3.4-5.0); ANION GAP 19.6 mmol/L (8-16); BILIRUBIN - TOTAL 3.72 mg/dL (0.2-1.3); CALCIUM 7.9 mg/dL (8.5-10.1); CARBON DIOXIDE 20.9 mmol/L (21.0-32.0); CREATININE - SERUM 4.1 mg/dL (0.6-1.3); POTASSIUM - SERUM 4.5 mmol/L (3.5-5.1); PROTEIN - SERUM 6.9 g/dL (6.4-8.2)
--- NOTE | 2017-07-07 10:05 | NUR ---
NUTRITION F/U REMAINS IN ICU. TOLERATING ADA DIET BUT POOR PO INTAKE AT BREAKFAST PER NURSING REPORT. WILL CONTINUE TO PROVIDE DIET, MONITOR PO INTAKE. RD FOLLOWING
--- NOTE | 2017-07-07 12:47 | NUR ---
SPOKE TO DR PULIDO ABOUT PT REFUSING LACTULOSE. PT AGREES TO TAKE LACTULOSE NOW. LACTULOSE GIVEN ORDERED IN APPLE JUICE.
--- NOTE | 2017-07-07 13:28 | NUR ---
* Is the patient Alert and Oriented? Yes 0 * How many steps to enter\exit or inside your home? Ramp 0 * PCP Dr. Pretty 0 * Pharmacy [facility] [address] 0 * Preadmission Environment Home with Family 0 * ADLs Partial Dependent 0 * Partial ADLs (Assistance needed) Ambulation Bathing Transfers 0 * Equipment Bedside [facility] Hospital Bed Génesis Lift Nebulizer Other Oxygen Shower Chair Wheelchair 0 * Other Equipment Electric WC 0 * List name and contact numbers for known caregivers / representatives who currently or will assist patient after discharge: Spouse - Priscilla [phone] 0 * Additional services required to return to the preadmission environment? Yes 0 * Can the patient safely return to the preadmission environment? Yes 0 * Has this patient been hospitalized within the prior 30 days at any hospital? Yes Patient Name: NENA BHATTI Admission Status: ER Accout number: [id number] Admission Date: 07-01-2017 : 1950 Admission Diagnosis:NAUSEA WITH VOMITING, UNSPECIFIED Attending: PABLO PINEDO Current LOS: 6 Planned Disposition: Penitentiary Facility Primary Insurance: MEDICARE A & B Discharge Planning Comments: CM met with patient & spouse to assess dc plans/needs. Patient reports he lives at home with his . He reports he uses an electric WC for mobility. He has had home health services in the past. He states he has also been to [facility] or rehab and would like to go again at discharge. MILLY signed. Answered questions. CM will follow. Major Sales Associate: Ina Schofield
--- NOTE | 2017-07-07 18:26 | NUR ---
PT VOMITED AFTER SUPPER. ZOFRAN GIVEN.
--- NOTE | 2017-07-07 19:26 | NUR ---
PT IN BED WITH EYES CLSOED AND CHEST RISING. NO S/S OF DISTRESS. NO COMPLAINTS OF PAIN OR NAUSEA NOTED AT THIS TIME. RECEIVING D5NS AT 50MLS/HR. CONTINUES CONTACT ISOLATION FOR E-COLI IN URINE. SINGER CATHETER PATENT AND SECURED WITH STAT LOC. VITAL SIGNS ARE WITHIN NORMAL LIMITS AT THIS TIME. WILL CONTINUE TO OBSERVE. CALL LIGHT IN REACH.
--- NOTE | 2017-07-07 21:11 | NUR ---
PT IN BED WATCHING TV. NO COMPLAINTS NOTED AT THIS TIME. NO S/S OF DISTRESS. WILL CONTINUE TO OBSERVE. CALL LIGHT IN REACH.
[2017-07-08] VITALS (10 sets, daily range): BP systolic 113–135; BP diastolic 78–96
--- NOTE | 2017-07-08 00:52 | NUR ---
PT IN BED WITH EYES CLOSED CONTINUES INTUBATION UNDER SEDATION. NO S/S OF DISTRESS NOTED. NO FURTHER RESTLESS NOTED AT THIS TIME. WILL CONTINUE TO OBSERVE.
--- NOTE | 2017-07-08 00:57 | NUR ---
PT IN BED LYING ON RIGHT SIDE PER REQUEST. NO COMPLAINTS OF PAIN OR NAUSEA/VOMITING. NO CONCERNS NOTED AT THIS TIME. CALL LIGHT IN REACH. WILL CONTINUE TO OBSERVE.
--- NOTE | 2017-07-08 03:18 | NUR ---
PT IN BED WITH EYES CLOSED AND CHEST RISING. NO S/S OF DISTRESS. NO CONCERNS NOTED. WILL CONTINUE TO OBSERVE. WILL CONTINUE TO OBSERVE.
[2017-07-08 05:08] LABS: BASOPHILS 0.2 % (0-2); EOSINOPHILS 4.2 % (0-7); HEMATOCRIT 31.7 % (42.0-54.0); HEMOGLOBIN 10.4 g/dL (13.5-17.5); IMMATURE GRANULOCYTES 0.1 % (0-5); LYMPHOCYTES 7.5 % (15-50); MCHC 32.8 g/dL (31.0-37.0); MCV 85.4 fL (80.0-100.0); MEAN PLATELET VOLUME 10.5 fL (7.4-10.4); MONOCYTES 16.2 % (2-11); NEUTROPHILS 71.8 % (40-80); RBC 3.71 10x6/uL (4.20-6.10); RDW 19.2 % (11.5-14.5); WBC 8.8 10x3/uL (4.8-10.8)
--- NOTE | 2017-07-08 05:18 | NUR ---
PT IN BED WITH EYES CLOSED AND CHEST RISING. NO S/S OF DISTRESS NOTED AT THIS TIME. NO COMPLAINTS OR CONCERNS NOTED. CALL LIGHT IN REACH. WILL CONTINUE TO OBSERVE.
[2017-07-08 05:24] LABS: PLATELET COUNT 127 10x3/uL (130-400)
[2017-07-08 05:29] LABS: ALBUMIN 2.7 g/dL (3.4-5.0); ANION GAP 18.1 mmol/L (8-16); BILIRUBIN - TOTAL 3.9 mg/dL (0.2-1.3); CALCIUM 7.7 mg/dL (8.5-10.1); CARBON DIOXIDE 20.9 mmol/L (21.0-32.0); PROTEIN - SERUM 6.5 g/dL (6.4-8.2)
--- NOTE | 2017-07-08 11:14 | OP ---
PATIENT NAME: NENA BHATTI MEDICAL RECORD: [id number] :54 LOCATION:D[facility] D.2308 ADMISSION DATE:07/01/17 SURGEON: TARIK NAVARRETE MD DATE OF OPERATION: 07/06/2017 PREOPERATIVE DIAGNOSES: 1. Need for IV access. 2. Zwood-sv-larrxio liver failure. 3. Chronic kidney disease. 4. Urinary tract infection. 5. Diabetes mellitus. 6. Anemia of chronic kidney disease. 7. Chronic obstructive pulmonary disease. 8. Coronary artery disease. 9. Hypertension. POSTOPERATIVE DIAGNOSES: 1. Need for IV access. 2. Uddvc-gf-wsjmtyy liver failure. 3. Chronic kidney disease. 4. Urinary tract infection. 5. Diabetes mellitus. 6. Anemia of chronic kidney disease. 7. Chronic obstructive pulmonary disease. 8. Coronary artery disease. 9. Hypertension. PROCEDURE: Right IJ triple-lumen central venous line placement. SURGEON: Tarik Navarrete MD REPORT OF PROCEDURE: The patient's right neck was prepped and draped in sterile fashion. Using ultrasound guidance, 5 cc of 1% lidocaine was infused into the subcutaneous tissues. Then, using ultrasound, we were able to cannulate the right internal jugular vein and a guidewire was advanced with ease. Over this wire, a dilator was placed followed by the triple lumen catheter. The catheter aspirated nonpulsatile dark blood and flushed easily in all 3 ports. This was sutured into place with 3-0 silk ties and dressed appropriately. COMPLICATIONS: None. CONDITION: Stable. ANESTHESIA: Local. BLOOD LOSS: Minimal. Procedure done at the bedside. TRANSINT:[id number] Voice Confirmation ID: [id number] DOCUMENT ID: [id number] OPERATIVE REPORT [id number] BHATTINENA RAMIREZ TARIK NAVARRETE MD at 1114 CC: [id number] DICTATION DATE: 07/06/17 0950 SEROLOGIST: 07/06/17 1109 [place] [address]
[2017-07-08 12:15] LABS: ALPHA FETOPROTEIN -(TUMOR MRK) <0.7 ng/mL (0.0-8.3); ANA REFLEX - DIRECT Negative (Negative)
[2017-07-08 12:15] LABS: HEPATITIS C ANTIBODY <0.1 (0.0-0.9)
--- NOTE | 2017-07-08 15:17 | NUR ---
PT WILL BE TRANSFERRED TO MED SURG ROOM 2223. REPORT GIVEN TO DILIP BASSETT.
[2017-07-08 19:10] LABS: CYTOMEGALOVIRUS AB IGG <0.60 U/mL (0.00-0.59); EBV - EARLY ANTIGEN AB IGG 46.2 U/mL (0.0-8.9); EBV - NUCLEAR ANTIGEN AB IGG 23.2 U/mL (0.0-17.9); EBV VIRAL CAPSID AB IGG >600.0 U/mL (0.0-17.9); EBV VIRAL CAPSID AB IGM <36.0 U/mL (0.0-35.9)
--- NOTE | 2017-07-08 19:30 | NUR ---
TRANSFERED FROM ICU PER BED A 66 Y/O W/M PER SERVICES DR. PINEDO. OLD BILATERAL AKA NOTED. SUPRAPUBIC CATH WITH SINGER BAG TO BEDSIDE DRAINAGE WITH GREGORY COLORED URINE.IV PATENT RT IJ OF D5NS AT 50CC'S/HR. SITE CLEAR. PT IN CONTACT ISOLATION FOR ECOLI IN HIS URINE. HOB UP 40 DEGREES. SR UP X2 CALL LIGHT WITHIN REACH
--- NOTE | 2017-07-08 21:30 | NUR ---
MEDS GIVEN PER MAR. [id number] NO COVERAGE NEEDED. O2 ON 2L/M PER NC.
--- NOTE | 2017-07-09 | NUR ---
EYES CLOSED RESPIRATIONS WITH EASE AND UNLABORED.
--- NOTE | 2017-07-09 02:15 | NUR ---
INC OF SMALL LOOSE STOOL. CLEANED AND DRIED WITH PINK PAD CHANGED.
[2017-07-09 04:00] VITALS: BP 124/86
[2017-07-09 06:17] LABS: BASOPHILS 0.1 % (0-2); EOSINOPHILS 5.1 % (0-7); HEMATOCRIT 32.7 % (42.0-54.0); HEMOGLOBIN 10.6 g/dL (13.5-17.5); IMMATURE GRANULOCYTES 0.3 % (0-5); MCH 27.8 pg (26.0-34.0); MCHC 32.4 g/dL (31.0-37.0); MCV 85.8 fL (80.0-100.0); MEAN PLATELET VOLUME 10.9 fL (7.4-10.4); MONOCYTES 12.9 % (2-11); NEUTROPHILS 74.6 % (40-80); PLATELET COUNT 148 10x3/uL (130-400); RBC 3.81 10x6/uL (4.20-6.10); RDW 20.2 % (11.5-14.5); WBC 8.8 10x3/uL (4.8-10.8)
[2017-07-09 06:30] LABS: INR 2.25 (0.85-1.17); PROTIME 24.9 SECONDS (11.6-15.0)
[2017-07-09 06:46] LABS: ALBUMIN 2.7 g/dL (3.4-5.0); ANION GAP 18.3 mmol/L (8-16); BILIRUBIN - DIRECT 2.97 mg/dL (0.00-0.30); BILIRUBIN - INDIRECT 1.03 mg/dL (0.00-1.00); CARBON DIOXIDE 21.1 mmol/L (21.0-32.0); CREATININE - SERUM 4.1 mg/dL (0.6-1.3); PHOSPHOROUS 6.2 mg/dL (2.5-4.9); POTASSIUM - SERUM 4.4 mmol/L (3.5-5.1); PROTEIN - SERUM 6.4 g/dL (6.4-8.2)
[2017-07-09 08:29] VITALS: BP 107/78
--- NOTE | 2017-07-09 09:00 | NUR ---
ASSESSMENT PER FLOW SHEET. PT HAS HAD SOME NAUSEA THIS AM. MODERATE AMOUNT OF VERY THICK YELLOW AND WHITE MUCOUS NOTED IN BASIN. PT STATES THIS HAPPENS EVERYDAY. BASIN EPMTIED.MONITOR FOR NEEDS
[2017-07-09 12:26] VITALS: BP 104/60
--- NOTE | 2017-07-09 12:54 | NUR ---
DVT PROPHALACTIC MEDS NOT ORDERED DUE TO INCREASED INR. SPOKE WITH SANDOVAL NOWAK.
--- NOTE | 2017-07-09 13:34 | NUR ---
NUTRITION F/U CHART REVIEWED. PT REMAINS IN ISOLATION. FINISHER HAND REPORTS PT WITH SMALL AMT INTAKE BREAKFAST BUT NOW WITH N/V. NURSING AWARE. RD FOLLOWING
--- NOTE | 2017-07-09 13:45 | NUR ---
NAUSEA AT LUNCH AGAIN. ZOFRAN ORDERED
[2017-07-09 14:24] LABS: EHRLICHIA CHAFF IGG Negative (Neg:<1:64); EHRLICHIA CHAFF IGM Negative (Neg:<1:20); HGE IGG TITER Negative (Neg:<1:64); HGE IGM TITER Negative (Neg:<1:20)
[2017-07-09 14:24] LABS: MITOCHONDRIAL ANTIBODY 6.3 Units (0.0-20.0); SMOOTH MUSCLE ABS (ACTIN) 33 Units (0-19)
[2017-07-09 15:25] LABS: RMSF IGM 0.24 index (0.00-0.89)
[2017-07-09 15:50] VITALS: BP 128/67
--- NOTE | 2017-07-09 19:26 | NUR ---
RESTING, WITHOUT CHANGE.CONT PLAN OF CARE
--- NOTE | 2017-07-09 20:00 | NUR ---
ASSESSMENT PER FLOWSHEET. IV PATENT RT IJ OF D5NS AT 75CC'S/HR SITE CLEAR. SUPRAPUBIC CATHETER IN PLACE AND DRAINGING YELLOW URINE. O2 ON 2L/M PER NC. NO DISTRESS. TELM. SHOWS SR WITH HR 76-80. PT IN CONTACT ISOLATION. BILATERAL AKA OLD. LEFT HAND RING FINGER ANPUTATED WITH SCAB NOTED TO SITE.
--- NOTE | 2017-07-09 21:30 | NUR ---
MEDS GIVEN PER OCT. NOMK=649. PT REFUSED S/S.
--- NOTE | 2017-07-09 22:30 | NUR ---
PT REQUESTING HS SNACK. MARKEL CRACKERS AND ORANGE SHERBET GIVEN PO.
[2017-07-09 23:58] VITALS: BP 122/77
--- NOTE | 2017-07-10 | NUR ---
EYES CLOSED RESPIRATIONS WITH EASE AND UNLABORED.
[2017-07-10 02:33] VITALS: BP 124/79
--- NOTE | 2017-07-10 03:42 | NUR ---
EYES CLOSED RESPIRATIONS WITH EASE AND UNLABORED. NO C/O OF PAIN OR NAUSEA.
--- NOTE | 2017-07-10 03:53 | NUR ---
INC ORANGE COLORED LOOSE STOOL. COMPLETE BED BATH WITH LINENS CHANGED.
[2017-07-10 06:08] LABS: BASOPHILS 0.1 % (0-2); EOSINOPHILS 4.6 % (0-7); HEMATOCRIT 31.8 % (42.0-54.0); HEMOGLOBIN 10.3 g/dL (13.5-17.5); IMMATURE GRANULOCYTES 0.3 % (0-5); LYMPHOCYTES 7.7 % (15-50); MCH 28.1 pg (26.0-34.0); MCHC 32.4 g/dL (31.0-37.0); MCV 86.6 fL (80.0-100.0); MEAN PLATELET VOLUME 10.9 fL (7.4-10.4); MONOCYTES 12.2 % (2-11); NEUTROPHILS 75.1 % (40-80); PLATELET COUNT 151 10x3/uL (130-400); RBC 3.67 10x6/uL (4.20-6.10); RDW 20.8 % (11.5-14.5); WBC 7.6 10x3/uL (4.8-10.8)
[2017-07-10 06:52] LABS: ALBUMIN 2.8 g/dL (3.4-5.0); BILIRUBIN - TOTAL 3.6 mg/dL (0.2-1.3); CALCIUM 8.1 mg/dL (8.5-10.1); CARBON DIOXIDE 21.5 mmol/L (21.0-32.0); CREATININE - SERUM 4.2 mg/dL (0.6-1.3); PHOSPHOROUS 6.7 mg/dL (2.5-4.9); POTASSIUM - SERUM 4.5 mmol/L (3.5-5.1); PROTEIN - SERUM 6.6 g/dL (6.4-8.2)
--- NOTE | 2017-07-10 07:00 | NUR ---
REPORT RECEIVED, ASSUMED CARE OF PT. CONTACT ISOLATION PRECAUTIONS IN PLACE. RESTING WITH EYES SHUT, EASILY AROUSED. R IJ INFUSING ORDERED, DRSG C/D/I. NO NEEDS VOICED AT THIS TIME. O2 AT 2L VIA NASAL CANNULA. BED IN LOWEST POSITION, SIDE RAILS UP X 2, CALL LIGHT WITHIN REACH.
[2017-07-10 08:08] VITALS: BP 113/74
[2017-07-10 12:22] VITALS: BP 123/81
[2017-07-10 16:01] VITALS: BP 116/87
--- NOTE | 2017-07-10 19:00 | NUR ---
REPORT RECEIVED AND CARE OF PT ASSUMED. PT LYING IN SUPINE POSITION WITH EYES CLOSED AND UNLABORED BREATING. O2 IN USE VIA NC AT 2L. RIGHT IJ PATENT WITH D5 NS INFUSING AT 75 ML / HR. SUPRA PUBIC CATH PATENT WITH DARK YELLOW URINE IN COLLECTION BAG. WILL MONITOR FOR NEEDS.
[2017-07-10 20:00] VITALS: BP 127/67
[2017-07-10 20:22] LABS: APPEARANCE HAZY (CLEAR); BILIRUBIN NEGATIVE (NEGATIVE); COLOR DK YELLOW (YELLOW); GLUCOSE NEGATIVE (NEGATIVE); KETONE NEGATIVE (NEGATIVE); NITRITE NEGATIVE (NEGATIVE); PROTEIN TRACE mg/dL (NEGATIVE); UROBILINOGEN NORMAL (NORMAL)
[2017-07-10 20:24] LABS: BACTERIA MODERATE /hpf (NONE SEEN); MUCUS <1+ /lpf (NONE SEEN); YEAST <1+ /hpf (NONE SEEN)
--- NOTE | 2017-07-10 22:20 | NUR ---
PT HAD LARGE INCONTINENT BM. PT BATHED AND ALL LINEN AND GOWN CHANGED.
--- NOTE | 2017-07-10 22:21 | NUR ---
PT REFUSED ALL MEDS AT MED PASS...WANTED TO WAIT A LITTLE WHILE. GAVE ZOFRAN 4 MG IVP TO CALM STOMACH. PT STILL REFUSES ALL MEDS. WASTED MEDICATIONS.
[2017-07-11] VITALS: BP 132/70
[2017-07-11 04:00] VITALS: BP 122/69
[2017-07-11 06:06] LABS: BASOPHILS 0.2 % (0-2); EOSINOPHILS 3.9 % (0-7); HEMATOCRIT 32.5 % (42.0-54.0); HEMOGLOBIN 10.5 g/dL (13.5-17.5); IMMATURE GRANULOCYTES 0.4 % (0-5); LYMPHOCYTES 14.4 % (15-50); MCH 28.2 pg (26.0-34.0); MCHC 32.3 g/dL (31.0-37.0); MCV 87.1 fL (80.0-100.0); MEAN PLATELET VOLUME 10.2 fL (7.4-10.4); MONOCYTES 4.1 % (2-11); PLATELET COUNT 157 10x3/uL (130-400); RBC 3.73 10x6/uL (4.20-6.10); RDW 21.3 % (11.5-14.5); WBC 8.2 10x3/uL (4.8-10.8)
[2017-07-11 06:25] LABS: APTT 35.1 SECONDS (22.8-39.4); INR 2.04 (0.85-1.17); PROTIME 23.1 SECONDS (11.6-15.0)
[2017-07-11 06:41] LABS: ALBUMIN 2.7 g/dL (3.4-5.0); BILIRUBIN - TOTAL 3.52 mg/dL (0.2-1.3); CALCIUM 8.5 mg/dL (8.5-10.1); CARBON DIOXIDE 20.4 mmol/L (21.0-32.0); CREATININE - SERUM 4.3 mg/dL (0.6-1.3); PHOSPHOROUS 7.4 mg/dL (2.5-4.9); POTASSIUM - SERUM 4.4 mmol/L (3.5-5.1); PROTEIN - SERUM 6.9 g/dL (6.4-8.2)
--- NOTE | 2017-07-11 06:44 | NUR ---
BLOOD SUGAR 143 REQUIRING NO COVERAGE PER SLIDING SCALE.
--- NOTE | 2017-07-11 08:07 | NUR ---
PT AOX4 RESP EVEN AND NONLABORED PT DENIES NEEDS AT THIS TIME IV TO RIGHT IJ PATENT AND INTACT AT THIS TIME SRX2 BED AT LOWEST SETTING CALL LIGHT WITHIN REACH WILL CONTINUE TO MONITOR
[2017-07-11 08:23] VITALS: BP 111/62
[2017-07-11 12:34] VITALS: BP 136/85
--- NOTE | 2017-07-11 12:51 | NUR ---
PT HAS HAD A RUN OF 11 PVC IN SR AT 76 SY THIS TIME
[2017-07-11 16:29] VITALS: BP 137/85
--- NOTE | 2017-07-11 19:00 | NUR ---
REPORT RECEIVED AND CARE OF PT ASSUMED. PT LYING IN SUPINE POSITION WITH EYES CLOSED. O2 IN USE VIA NC AT 2L. RIGHT IJ PATENT WITH D5 NS INFUSING AT 75 ML / HR. WILL MONITOR CLOSELY FOR NEEDS. CALL LIGHT WITHIN REACH.
[2017-07-11 20:00] VITALS: BP 121/81
--- NOTE | 2017-07-11 21:18 | NUR ---
PT REFUSED ALL HS MEDICATIONS. PERSUADED HIM TO TAKE BETAPACE TELEMETRY REPORTED A RUN OF SVT A FEW MINUTES AGO. WILL CONTINUE TO MONITOR FOR NEEDS. CALL LIGHT WITHIN REACH.
--- NOTE | 2017-07-12 00:47 | NUR ---
PT HAD SMALL AMOUNT OF EMESIS AND NAUSEA. OFFERED ZOFRAN, BUT PT REFUSED. GAVE WET WASH CLOTH FOR FACE. WILL CONTINUE TO MONITOR CLOSELY. CALL LIGHT WITHIN REACH.
--- NOTE | 2017-07-12 03:00 | NUR ---
PT RESTING QUIETLY, EYES CLOSED. RESP EVEN, UNLABORED. NO DISTRESS NOTED. CONTINUE FRIED CAKE MAKER'S PLAN OF CARE.
--- NOTE | 2017-07-12 03:33 | NUR ---
PT YELLING DOWN THE HALLWAY...REQUESTING PAIN MEDICATION. RECEIVED ORDER FROM ER PHYSICIAN DR BAZAN FOR DILAUDID 1 MG IVP Q3HR PRN FOR SEVERE PAIN.
[2017-07-12 04:00] VITALS: BP 129/76
[2017-07-12 06:00] LABS: BASOPHILS 0.2 % (0-2); EOSINOPHILS 2.2 % (0-7); HEMATOCRIT 36.1 % (42.0-54.0); HEMOGLOBIN 11.4 g/dL (13.5-17.5); IMMATURE GRANULOCYTES 0.8 % (0-5); LYMPHOCYTES 16.2 % (15-50); MCHC 31.6 g/dL (31.0-37.0); MCV 88.7 fL (80.0-100.0); MEAN PLATELET VOLUME 10.1 fL (7.4-10.4); NEUTROPHILS 76.6 % (40-80); RBC 4.07 10x6/uL (4.20-6.10); RDW 22.4 % (11.5-14.5)
[2017-07-12 06:17] LABS: PLATELET COUNT 199 10x3/uL (130-400)
[2017-07-12 06:33] LABS: ALBUMIN 2.9 g/dL (3.4-5.0); ANION GAP 22.7 mmol/L (8-16); BILIRUBIN - TOTAL 4.6 mg/dL (0.2-1.3); CALCIUM 8.7 mg/dL (8.5-10.1); CARBON DIOXIDE 18.4 mmol/L (21.0-32.0); CREATININE - SERUM 4.5 mg/dL (0.6-1.3); PHOSPHOROUS 8.3 mg/dL (2.5-4.9); PROTEIN - SERUM 7.1 g/dL (6.4-8.2)
[2017-07-12 06:36] LABS: POTASSIUM - SERUM 5.1 mmol/L (3.5-5.1)
--- NOTE | 2017-07-12 08:33 | NUR ---
PT CONFUSED AT TIMES AOX1 SELF. PT DENIES NEEDS AT THIS TIME IV TO LEFT IJ PATENT AND INTACT AT THIS TIME SRX2 BED AT LOWEST SETTING CALL LIGHT WITHIN REACH WILL CONTINUE TO MONITOR
[2017-07-12 08:40] VITALS: BP 145/92
[2017-07-12 10:41] LABS: INR 2.26 (0.85-1.17)
[2017-07-12 12:11] VITALS: BP 138/85
[2017-07-12 15:44] VITALS: BP 143/79
[2017-07-12 21:25] VITALS: BP 127/79
[2017-07-13 00:27] VITALS: BP 125/77
--- NOTE | 2017-07-13 02:38 | NUR ---
PATIENT SLEEPING, NO NEEDS NOTED. 1 DOSE OF DILADID GIVEN FOR PAIN CONTROL.
--- NOTE | 2017-07-13 05:13 | NUR ---
TELEMETRY JUST REPORTED PATIENT HAD A "run of 10."
[2017-07-13 05:32] LABS: BASOPHILS 0.1 % (0-2); EOSINOPHILS 0.4 % (0-7); HEMATOCRIT 35.1 % (42.0-54.0); IMMATURE GRANULOCYTES 0.6 % (0-5); LYMPHOCYTES 6.9 % (15-50); MCHC 31.3 g/dL (31.0-37.0); MCV 89.3 fL (80.0-100.0); MEAN PLATELET VOLUME 11.6 fL (7.4-10.4); MONOCYTES 3.2 % (2-11); NEUTROPHILS 88.8 % (40-80); PLATELET COUNT 170 10x3/uL (130-400); RBC 3.93 10x6/uL (4.20-6.10); RDW 22.7 % (11.5-14.5)
[2017-07-13 05:34] LABS: WBC 14.2 10x3/uL (4.8-10.8)
[2017-07-13 05:39] LABS: INR 2.28 (0.85-1.17); PROTIME 25.2 SECONDS (11.6-15.0)
[2017-07-13 05:53] VITALS: BP 143/83
[2017-07-13 06:02] LABS: ALBUMIN 2.8 g/dL (3.4-5.0); ANION GAP 22.9 mmol/L (8-16); BILIRUBIN - TOTAL 4.9 mg/dL (0.2-1.3); CALCIUM 9.1 mg/dL (8.5-10.1); PHOSPHOROUS 8.6 mg/dL (2.5-4.9); POTASSIUM - SERUM 4.9 mmol/L (3.5-5.1); PROTEIN - SERUM 7.3 g/dL (6.4-8.2)
[2017-07-13 08:33] VITALS: BP 129/64
[2017-07-13 12:16] VITALS: BP 141/73
[2017-07-13 16:41] VITALS: BP 111/73
[2017-07-13 19:44] VITALS: BP 121/60
--- NOTE | 2017-07-13 21:26 | NUR ---
PATIENT WAS SLEEPING AND HAD 2 RUNS OF V-TACH. AUTO TIRE RECAPPER CALLED AND NOTIFIED
--- NOTE | 2017-07-14 03:00 | NUR ---
PT RESTING QUIETLY, EYES CLOSED. RESP EVEN, UNLABORED. NO DISTRESS NOTED. CONTINUE PATTERN MAKER PROGRAMER'S PLAN OF CARE.
[2017-07-14 04:00] VITALS: BP 109/61
[2017-07-14 05:48] LABS: BASOPHILS 0.1 % (0-2); EOSINOPHILS 2.1 % (0-7); HEMATOCRIT 36.1 % (42.0-54.0); HEMOGLOBIN 11.1 g/dL (13.5-17.5); IMMATURE GRANULOCYTES 0.4 % (0-5); LYMPHOCYTES 5.4 % (15-50); MCHC 30.7 g/dL (31.0-37.0); MCV 90.9 fL (80.0-100.0); MEAN PLATELET VOLUME 10.6 fL (7.4-10.4); MONOCYTES 7.9 % (2-11); NEUTROPHILS 84.1 % (40-80); PLATELET COUNT 165 10x3/uL (130-400); RBC 3.97 10x6/uL (4.20-6.10); WBC 14.3 10x3/uL (4.8-10.8)
[2017-07-14 06:18] LABS: ANION GAP 23.4 mmol/L (8-16); BILIRUBIN - TOTAL 4.12 mg/dL (0.2-1.3); CARBON DIOXIDE 17.9 mmol/L (21.0-32.0); CREATININE - SERUM 5.8 mg/dL (0.6-1.3); POTASSIUM - SERUM 5.3 mmol/L (3.5-5.1); PROTEIN - SERUM 7.7 g/dL (6.4-8.2)
[2017-07-14 06:25] LABS: INR 2.25 (0.85-1.17)
--- NOTE | 2017-07-14 07:10 | NUR ---
REPORT RECEIVED FROM FLAT FINISHER NURSE. CALL LIGHT IN REACH.
[2017-07-14 08:14] VITALS: BP 129/44
--- NOTE | 2017-07-14 09:54 | NUR ---
ASSESSMENT COMPLETED. DILAUDID 1 MG SIVP PER C/O PAIN OF 5 TO ABDOMEN. AM MEDS ADMINISTERED. REFUSED FLONASE. IN ROOM. CALL LIGHT IN REACH. WILL CONTINUE WITH PLAN OF CARE.
--- NOTE | 2017-07-14 11:13 | NUR ---
FLORAEDSONN AND CARAFATE PO. FSBS 98 SO NO COVERAGE REQUIRED.
[2017-07-14 11:51] VITALS: BP 141/58
--- NOTE | 2017-07-14 13:57 | NUR ---
LISA SMITH PO. DILAUDID IVP. IN ROOM. CALL LIGHT IN REACH.
--- NOTE | 2017-07-14 14:28 | NUR ---
PT RESTING QUIETLY-RECENTLY HAD PAIN MEDICATION. FAMILY AT BEDSIDE. RIGHT IJ NOTED WITH DATE OF 07/09-REINFORCED WITH OPSITE DRESSING. GENERALIZED EDEMA NOTED TO ARMS AND TRUNK. CALLL LIGHT IN REACH
[2017-07-14 16:05] VITALS: BP 126/68
--- NOTE | 2017-07-14 16:51 | NUR ---
DILAUDID 1 MG SIVP. REFUSES TUMS. FSBS 126. AND BROTHER IN ROOM. CALL LIGHT IN REACH.
--- NOTE | 2017-07-14 18:58 | NUR ---
URINE OUTPUT ONLY 100 CC. WILL CALL MD FOR NEW ORDERS.
--- NOTE | 2017-07-14 19:04 | NUR ---
SPOKE WITH SHE PINEDA, ABOUT 100 CC URINE OUTPUT. NEW ORDERS RECEIVED.
--- NOTE | 2017-07-14 20:00 | NUR ---
ASSESSMENT PER FLOWSHEET. IV NS BOLUS OF 300CC'S TOTAL INFUSING AT 100CC'S/HR TO RT TLIJ. SITE CLEAR.
[2017-07-14 20:21] VITALS: BP 141/66
--- NOTE | 2017-07-14 22:00 | NUR ---
BOLUS COMPLETED. IV SALINE LOCKED. SINGER TO BEDSIDE DRAINAGE WITH GREGORY COLORED URINE. SR UP X2 CALL LIGHT WITHIN REACH.
--- NOTE | 2017-07-14 23:52 | NUR ---
C/O BODY PAIN ALL OVER RATES PAIN LEVEL #5. DILAUDID 1MG IVP GIVEN FOR PAIN CONTROL.
--- NOTE | 2017-07-15 00:21 | NUR ---
EYES CLOSED RESPIRATIONS WITH EASE AND UNLABORED.
[2017-07-15 03:50] VITALS: BP 108/42
[2017-07-15 05:38] LABS: BASOPHILS 0.1 % (0-2); EOSINOPHILS 0.5 % (0-7); HEMATOCRIT 34.8 % (42.0-54.0); HEMOGLOBIN 10.7 g/dL (13.5-17.5); IMMATURE GRANULOCYTES 0.5 % (0-5); LYMPHOCYTES 5.9 % (15-50); MCH 27.9 pg (26.0-34.0); MCHC 30.7 g/dL (31.0-37.0); MCV 90.9 fL (80.0-100.0); MEAN PLATELET VOLUME 10.4 fL (7.4-10.4); MONOCYTES 7.1 % (2-11); NEUTROPHILS 85.9 % (40-80); PLATELET COUNT 142 10x3/uL (130-400); RBC 3.83 10x6/uL (4.20-6.10); RDW 23.5 % (11.5-14.5); WBC 10.9 10x3/uL (4.8-10.8)
[2017-07-15 05:45] LABS: INR 2.21 (0.85-1.17); PROTIME 24.6 SECONDS (11.6-15.0)
[2017-07-15 06:11] LABS: ANION GAP 25.5 mmol/L (8-16); BILIRUBIN - TOTAL 4.09 mg/dL (0.2-1.3); CALCIUM 8.7 mg/dL (8.5-10.1); CARBON DIOXIDE 18.1 mmol/L (21.0-32.0); CREATININE - SERUM 6.8 mg/dL (0.6-1.3); POTASSIUM - SERUM 5.6 mmol/L (3.5-5.1); PROTEIN - SERUM 7.3 g/dL (6.4-8.2)
--- NOTE | 2017-07-15 07:10 | NUR ---
REPORT RECEIVED FROM SPECIAL EDUCATION PARAPROFESSIONAL NURSE. CALL LIGHT IN REACH.
[2017-07-15 08:38] VITALS: BP 120/51
--- NOTE | 2017-07-15 08:50 | NUR ---
REPOSITIONED IN BED. INCONTINENT OF STOOL. BED BATH AND LINEN CHANGE PER CNAs.
--- NOTE | 2017-07-15 10:13 | NUR ---
AM MEDS ADMINISTERED. DILAUDID 1 MG SIVP. CALL LIGHT IN REACH.
--- NOTE | 2017-07-15 10:33 | NUR ---
VOMITED ALL OF HIS MEDS UP. SOUNDS WET AT THIS TIME. SPOKE WITH SHE BHANDARI. NEW ORDER FOR STAT CXR.
--- NOTE | 2017-07-15 10:56 | NUR ---
APPLIED SUPPLEMENTAL O2 AT 2L VIA NC. FI02 37 %
--- NOTE | 2017-07-15 12:52 | NUR ---
PT SEEN. STATES NAUSEA IS BETTER NOW. HAS COUGH NOW- STATES THIS STARTED AFTER HE GOT SICK-PENDING XRAY RESULTS. ENCOURAGED PT/SPOUSE TO DEEP BREATHE/COUGH/AND USE INCENTIVE SPIROMETRY. PT DEEP BREATHED AND COUGHED AND HAD SOME PHLEHM COME UP. CALL LIGHT IN REACH
[2017-07-15 12:56] VITALS: BP 125/43
--- NOTE | 2017-07-15 14:15 | NUR ---
RESTING WITH EYES CLOSED. RESP EVEN AND UNLABORED. CALL LIGHT IN REACH. IN ROOM.
[2017-07-15 14:18] LABS: F. TULARENSIS - IGG Negative (()); F. TULARENSIS - IGM Negative (())
--- NOTE | 2017-07-15 16:31 | NUR ---
DILAUDID 1 MG SIVP. FSBS 118 SO NO COVERAGE REQUIRED. DID NOT GIVE TESSALON PERLE OR TUMS D/T SICK SPELL EARLIER.
[2017-07-15 16:44] VITALS: BP 108/55
--- NOTE | 2017-07-15 18:00 | NUR ---
NO CHANGES IN INITIAL ASSESSMENT. CALL LIGHT IN REACH. WILL CONTINUE WITH PLAN OF CARE.
--- NOTE | 2017-07-15 19:40 | NUR ---
DR. ROJO HERE TO SEE PATIENT. INFORMED HIM OF 50 CC URINE OUTPUT. ALSO WENT IN ROOM WITH MD FOR HIS ASSESSMENT. DILAUDID 1 MG SIVP. CALL LIGHT IN REACH.
[2017-07-15 20:00] VITALS: BP 150/67
[2017-07-16] VITALS: BP 144/66
[2017-07-16 04:00] VITALS: BP 138/71
[2017-07-16 06:02] LABS: BASOPHILS 0 % (0-2); EOSINOPHILS 0.1 % (0-7); HEMOGLOBIN 10.8 g/dL (13.5-17.5); IMMATURE GRANULOCYTES 0.2 % (0-5); LYMPHOCYTES 2.1 % (15-50); MCH 29.2 pg (26.0-34.0); MCHC 32.7 g/dL (31.0-37.0); MCV 89.2 fL (80.0-100.0); NEUTROPHILS 96.6 % (40-80); PLATELET COUNT 138 10x3/uL (130-400); RDW 22.8 % (11.5-14.5)
[2017-07-16 06:05] LABS: WBC 16.1 10x3/uL (4.8-10.8)
[2017-07-16 06:33] LABS: ALBUMIN 2.9 g/dL (3.4-5.0); ANION GAP 28.2 mmol/L (8-16); BILIRUBIN - TOTAL 4.7 mg/dL (0.2-1.3); CARBON DIOXIDE 15.6 mmol/L (21.0-32.0); CREATININE - SERUM 7.4 mg/dL (0.6-1.3); INR 2.21 (0.85-1.17); POTASSIUM - SERUM 5.8 mmol/L (3.5-5.1); PROTEIN - SERUM 7.1 g/dL (6.4-8.2); PROTIME 24.6 SECONDS (11.6-15.0)
--- NOTE | 2017-07-16 07:10 | NUR ---
REPORT RECEIVED FROM DISTRIBUTION ACCOUNTING CLERK NURSE. CALL LIGHT IN REACH.
[2017-07-16 08:36] VITALS: BP 148/100
--- NOTE | 2017-07-16 08:45 | NUR ---
ASSESSMENT COMPLETED. AM MEDS ADMINISTERED. DILAUDID IVP. VOMITED OLD HAMBURGER MEAT. REPOSITIONED FOR COMFORT. CALL LIGHT IN REACH.
--- NOTE | 2017-07-16 10:20 | NUR ---
DR. SIFUENTES HERE TO SEE PATIENT. I CALLED AND SPOKE WITH DR. NAVARRETE ABOUT DR. SIFUENTES WANTING A TRIALYSIS CATHETER.
--- NOTE | 2017-07-16 12:12 | CN ---
PATIENT NAME:NENA BHATTI MEDICAL RECORD: [id number] : 54 LOCATION:[id number] ADMIT DATE: 07/01/17 ACCOUNT: [id number] CONSULTING PHYSICIAN: DAYDAY LERNER MD REFERRING PHYSICIAN: PABLO PINEDO DO DATE OF CONSULTATION: 07/15/2017 CONSULT REQUESTING PHYSICIAN: Erika Wallace MD REASON FOR CONSULTATION: Questionable aspiration pneumonia. HISTORY OF PRESENT ILLNESS: Mr. Bhatti is a 66-year-old gentleman who was admitted on 07/01/2017 with nausea, vomiting, acute renal failure, and hyperkalemia. Also, it was found his ammonia level is in 70s. This morning, when the patient was taking his medication, there was questionable possible aspiration of his lactulose. He has some gurgling sound. The patient is also very lethargic according to because of the narcotic medication and high ammonia level. Now, he is awake and follows commands. He is oriented to time and place. REVIEW OF THE SYSTEMS: Mainly in the history of present illness. Also, the patient's serology was positive for the Dong[place] spotted fever and the patient was to put on doxycycline. Initially, he was treated with Zosyn and doxycycline. PAST MEDICAL HISTORY: 1. COPD. 2. Congestive heart failure. 3. Coronary artery disease. 4. History of ID. 5. Peripheral vascular disease. 6. Diabetes mellitus. 7. Cirrhosis of liver. 8. Chronic suprapubic catheter. PAST SURGICAL HISTORY: 1. Bilateral below-knee amputation. 2. CABG. 3. Cardiac catheterization and stent placement. 4. Status post defibrillator and pacemaker placement. ALLERGIES: There are no known drug allergies. MEDICATIONS: He is on doxycycline and albuterol/ipratropium nebulizer. His other medications are reviewed. PERSONAL AND SOCIAL HISTORY: The patient is an ex-smoker. He is and lives with his . He is nondrinker. FAMILY HISTORY: Significant for cardiovascular diseases. PHYSICAL EXAMINATION: GENERAL: Now, the patient is lying comfortably in bed. He is not in acute distress. CONSULT REPORT [id number] NENA BHATTI VITAL SIGNS: The blood pressure is 125/43, pulse is 78, respirations are 20, temperature is 97.3, and SpO2 is 93% on 2-liter nasal cannula. HEENT: Conjunctivae are pink. Sclerae not icteric. NECK: Neck is supple. No JVD. CHEST: There are course breath sounds. There is wheezing on forceful respiration. HEART: Rhythm regular. Normal sounds. No murmur. ABDOMEN: Abdomen is soft. Bowel sounds present. No hepatosplenomegaly. RECTAL: Deferred. EXTREMITIES: No cyanosis and no clubbing of the left lower extremity. He has bilateral lower extremity amputations. CENTRAL NERVOUS SYSTEM: The patient is lethargic, but he wakes up. There is no obvious cranial nerve abnormality. CHEST RADIOGRAPH: Portable film today compared to the chest radiograph on the 09 of July, I do not see any difference. There is some cardiomegaly with prominent interstitial disease, possible left lower lobe atelectasis. LABORATORY DATA: CBC; WBC of 14.2, now it is down to 10.9; hemoglobin 10.7; hematocrit 34.8; and platelet count is 142. Chemistry; sodium 140, potassium 5.6, BUN is 108, and creatinine 6.8. The ammonia level was 73 on the 09 of July. IMPRESSION: 1. Acute exacerbation of COPD. 2. Umcja-jf-ixydjhm hypoxic respiratory failure. 3. Possible acute bronchitis. 4. UTI. 5. Serology positive for Dongola spotted fever. 6. Hepatic encephalopathy. 7. Acute renal failure. RECOMMENDATION: 1. Finish the course of doxycycline. 2. Start methylprednisolone IV. Start on albuterol/ipratropium nebulizer. 3. Brovana and budesonide nebulizer. 4. Stop the fluticasone inhaler. 5. Followup labs and chest radiograph. Dr. Wallace, thank you for involving me in the care of Mr. Bhatti. TRANSINT:[id number] Voice Confirmation ID: [id number] DOCUMENT ID: [id number] DAYDAY LERNER MD at 1212 CC: ERIKA WALLACE MD [id number] DICTATION DATE: 07/15/17 1312 TRANSMISSION SYSTEMS OPERATOR: 07/15/17 1345 ADM IN [facility] [address] [place] [address]
--- NOTE | 2017-07-16 12:50 | NUR ---
TRIALYSIS CATHETER PLACED PER DR. NAVARRETE.
--- NOTE | 2017-07-16 13:13 | NUR ---
PT NOTE. DR NAVARRETE HERE-SWITCHED OUT RIGHT IJ FOR RIGHT TRIALYSIS CATHETER. TOLERATED WELL. CALL LIGHT IN PLACE
--- NOTE | 2017-07-16 13:31 | NUR ---
NUTRITION F/U CHART REVIEWED. PT REMAINS IN ISOLATION. TOLERATING CLEAR LIQUID DIET. TO START HD. NOT MEETING EST NUTRITIONAL NEEDS. RD FOLLOWING
--- NOTE | 2017-07-16 14:08 | NUR ---
AFTERNOON MEDS ADMINISTERED. TYRON UP DILAUDID BECAUSE PATIENT REQUESTED IT BUT THEN HE REFUSED AFTER DRAWING IT UP. WAS IN ROOM TO WITNESS. WASTED WITH ANOTHER NURSE.
[2017-07-16 14:20] VITALS: BP 135/57
--- NOTE | 2017-07-16 14:50 | NUR ---
REPORT GIVEN TO DANYELLE PALENCIA.
[2017-07-16 16:23] VITALS: BP 115/38
--- NOTE | 2017-07-16 16:34 | NUR ---
REPORT GIVEN TO DANYELLE PALENCIA.
--- NOTE | 2017-07-16 20:00 | NUR ---
ASSESSSMENT PER FLOWSHEET. DIALYSIS PORT TRIALYSIS CATHETER IN PLACE DRSG C/D/I. AT BEDSIDE. SUPRAPUBIC CATHETER IN PLACE AND DRAINING DARK GREGORY URINE. SR UP X2 CALL LIGHT WITHIN REACH BILATERAL AKA (OLD) NOTED. HOB UP 45 DEGREES. O2 ON 2L/M PER NC. 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 PT IN CONTACT ISOLATION.
--- NOTE | 2017-07-16 21:30 | NUR ---
MEDS GIVEN PER MAR. NIRZ=[id number]. NO COVERAGE NEEDED.
[2017-07-16 23:09] VITALS: BP 109/46
--- NOTE | 2017-07-17 | NUR ---
EYES CLOSED RESPIRATIONS WITH EASE AND UNLABORED.
[2017-07-17 01:20] VITALS: BP 113/57
--- NOTE | 2017-07-17 03:00 | NUR ---
RESTING QUIETLY REPOSITIONED IN BED.
[2017-07-17 05:26] LABS: BASOPHILS 0 % (0-2); EOSINOPHILS 0 % (0-7); HEMATOCRIT 32.5 % (42.0-54.0); HEMOGLOBIN 10.4 g/dL (13.5-17.5); IMMATURE GRANULOCYTES 0.2 % (0-5); LYMPHOCYTES 4.4 % (15-50); MCV 87.6 fL (80.0-100.0); MEAN PLATELET VOLUME 10.3 fL (7.4-10.4); MONOCYTES 0.5 % (2-11); NEUTROPHILS 94.9 % (40-80); PLATELET COUNT 120 10x3/uL (130-400); RBC 3.71 10x6/uL (4.20-6.10); RDW 22.7 % (11.5-14.5)
[2017-07-17 05:33] LABS: INR 2.34 (0.85-1.17); PROTIME 25.7 SECONDS (11.6-15.0)
[2017-07-17 05:35] LABS: WBC 9.8 10x3/uL (4.8-10.8)
[2017-07-17 05:47] LABS: ALBUMIN 2.9 g/dL (3.4-5.0); ANION GAP 25.6 mmol/L (8-16); BILIRUBIN - TOTAL 4.4 mg/dL (0.2-1.3); CALCIUM 8.7 mg/dL (8.5-10.1); CARBON DIOXIDE 16.3 mmol/L (21.0-32.0); CREATININE - SERUM 8.5 mg/dL (0.6-1.3); POTASSIUM - SERUM 5.9 mmol/L (3.5-5.1)
[2017-07-17 05:48] VITALS: BP 124/53
--- NOTE | 2017-07-17 06:00 | NUR ---
MEDS GIVEN PER OCT. OJBC=524. 12 UNITS HUMALOG INSULIN GIVEN SUBC PER S/S TO RT ARM
--- NOTE | 2017-07-17 07:07 | NUR ---
REPORT RECEIVED FROM REGULATION SUPERVISOR NURSE. CALL LIGHT IN REACH.
--- NOTE | 2017-07-17 07:15 | NUR ---
ASSESSMENT COMPLETED. CONTACT ISOLATION. NO DISTRESS NOTED AT THIS TIME. CALL LIGHT IN REACH. WILL CONTINUE WITH PLAN OF CARE.
[2017-07-17 09:07] VITALS: BP 138/90
--- NOTE | 2017-07-17 09:55 | NUR ---
TO DIALYSIS VIA BED.
--- NOTE | 2017-07-17 10:24 | NUR ---
C/O PAIN WHILE IN DIALYSIS. DILAUDID TAKEN DOWN TO DIALYSIS UNTI AND 1 MG WAS ADMINISTERED. WASTED THE OTHE 1 MG WITH DANYELLE PALENCIA. WILL SCAN WHEN HE GETS BACK.
--- NOTE | 2017-07-17 12:05 | NUR ---
STILL IN DIALYSIS AT THIS TIME.
--- NOTE | 2017-07-17 13:07 | NUR ---
PT SEEN ON AM ROUNDS. NO COMPLAINTS AT PRESENT. GOINT TO DIAYSIS TODAY-RIGHT TRIAYLSIS CATHETER IN NECK WITH DRESSING CLEAN DRY AND INTACT. REMAINS IN CONTACT ISOLATION
--- NOTE | 2017-07-17 14:25 | NUR ---
BACK IN ROOM AT THIS TIME. CALL LIGHT IN REACH.
--- NOTE | 2017-07-17 14:51 | NUR ---
BACK IN ROOM AT THIS TIME. ORAL MEDS ADMINISTERED. DILAUDID 1 MG SIVP. CALL LIGHT IN REACH.
--- NOTE | 2017-07-17 16:15 | NUR ---
SANITATION WORKER CLEANING EQUIPMENT STATED PATIENT HAD 11 RUNS OF VTACH. NOTIFIED SHE ANDREA. NEW ORDERS RECEIVED AT THIS TIME. BP 124/63, HR 75, O2 SAT 96% ON 2L PER NC AT THIS TIME. CALL LIGHT IN REACH.
--- NOTE | 2017-07-17 16:32 | NUR ---
FSBS 112 SO NO COVERAGE REQUIRED. TUMS PO. AT BEDSIDE. CALL LIGHT IN REACH.
[2017-07-17 17:07] VITALS: BP 120/59
--- NOTE | 2017-07-17 18:05 | NUR ---
NO OTHER CHANGES IN INITIAL ASSESSMENT. AT BEDSIDE. CALL LIGHT IN REACH. WILL CONTINUE WITH PLAN OF CARE.
[2017-07-17 20:00] VITALS: BP 128/56
--- NOTE | 2017-07-17 20:00 | NUR ---
ASSESSMENT PER FLOWSHEET. RT IJ TRIALYSIS CATHETER IN PLACE AND SALINE LOCKED. PT IN CONTACT ISOLATION. AT BEDSIDE. OLD BILAT. AKA NOTED.SUPRAPUBIC CATHETER IN PLACE AND DRAINING SMALL AMOUNT DARK GREGORY URINE. BOTH HANDS SWOLLEN BUT HAS DECREASED SINCE YESTERDAY.
--- NOTE | 2017-07-17 21:30 | NUR ---
MEDS GIVEN PER MAR.
--- NOTE | 2017-07-17 21:35 | NUR ---
MVQP=442. NO COVERAGE NEEDED.
--- NOTE | 2017-07-17 23:42 | NUR ---
INC STOOL COMPLETE BED BATH WITH LINENS CHANGED. AT BEDSIDE. 3 SMALL RED SORES NOTED ON RT BUTTOCK CHEEK. APPLIED BUTT PASTE TO AREA.PT DRANK 240CC'S OF ENSURE PO.
[2017-07-18] VITALS: BP 145/70
[2017-07-18 04:00] VITALS: BP 136/65
[2017-07-18 05:29] LABS: BASOPHILS 0 % (0-2); EOSINOPHILS 0 % (0-7); HEMATOCRIT 29.7 % (42.0-54.0); HEMOGLOBIN 9.5 g/dL (13.5-17.5); IMMATURE GRANULOCYTES 0.1 % (0-5); LYMPHOCYTES 2.6 % (15-50); MCH 27.5 pg (26.0-34.0); MCV 85.8 fL (80.0-100.0); MEAN PLATELET VOLUME 10.4 fL (7.4-10.4); MONOCYTES 1.4 % (2-11); NEUTROPHILS 95.9 % (40-80); RBC 3.46 10x6/uL (4.20-6.10); RDW 22.8 % (11.5-14.5); WBC 8.8 10x3/uL (4.8-10.8)
[2017-07-18 05:31] LABS: PLATELET COUNT 102 10x3/uL (130-400)
[2017-07-18 05:52] LABS: ALBUMIN 2.5 g/dL (3.4-5.0); BILIRUBIN - TOTAL 4.4 mg/dL (0.2-1.3); CALCIUM 7.9 mg/dL (8.5-10.1); PROTEIN - SERUM 6.5 g/dL (6.4-8.2)
[2017-07-18 06:02] LABS: ANION GAP 17.5 mmol/L (8-16); CARBON DIOXIDE 24.4 mmol/L (21.0-32.0); CREATININE - SERUM 5.8 mg/dL (0.6-1.3); POTASSIUM - SERUM 3.9 mmol/L (3.5-5.1)
[2017-07-18 08:48] VITALS: BP 102/59
--- NOTE | 2017-07-18 08:50 | NUR ---
ASSESSMENT COMPLETED. LINENS CHANGED AND PULLED UP IN BED. CALL LIGHT IN REACH. WILL CONTINUE WITH PLAN OF CARE.
--- NOTE | 2017-07-18 10:03 | NUR ---
TO DIALYSIS VIA BED.
--- NOTE | 2017-07-18 12:30 | NUR ---
STILL IN DIALYSIS AT THIS TIME.
--- NOTE | 2017-07-18 13:20 | NUR ---
BACK IN ROOM AT THIS TIME.
--- NOTE | 2017-07-18 14:03 | NUR ---
MORNING MEDS ADMINISTERED. FSBS 159. HUMALOG 4 UNITS SUBQ TO RIGHT ARM. IN ROOM. CALL LIGHT IN REACH.
--- NOTE | 2017-07-18 14:55 | NUR ---
CONTACT ISOLATION. RIGHT IJ TRIALYSIS INTACT. SUPRAPUBIC CATHETER INTACT WITH 50 CC DRAINING TO BAG. OLD BILATERAL BKAs. CNAs IN ROOM CLEANING PATIENT AND REPOSITIONING HIM. AT BEDSIDE. CALL LIGHT IN REACH.
--- NOTE | 2017-07-18 16:20 | NUR ---
NO NEEDS VOICED AT THIS TIME. CALL LIGHT IN REACH.
[2017-07-18 16:21] VITALS: BP 127/67
--- NOTE | 2017-07-18 18:13 | NUR ---
REMY PO. NO CHANGES IN INITIAL ASSESSMENT. CALL LIGHT IN REACH. WILL CONTINUE WITH PLAN OF CARE.
[2017-07-18 20:00] VITALS: BP 147/54
[2017-07-19] VITALS: BP 119/57
--- NOTE | 2017-07-19 02:58 | NUR ---
RN NOTE: PT RESTING IN SUPINE POSITION WITH EYES CLOSED AND UNLABORED BREATHING. RIGHT IJ SALINE LOCKED. WILL CONTINUE TO MONITOR FOR NEEDS.
[2017-07-19 04:00] VITALS: BP 113/71
[2017-07-19 04:36] LABS: BASOPHILS 0 % (0-2); EOSINOPHILS 0 % (0-7); HEMATOCRIT 30.2 % (42.0-54.0); HEMOGLOBIN 9.8 g/dL (13.5-17.5); IMMATURE GRANULOCYTES 0.2 % (0-5); LYMPHOCYTES 2.6 % (15-50); MCH 27.9 pg (26.0-34.0); MCHC 32.5 g/dL (31.0-37.0); MEAN PLATELET VOLUME 9.6 fL (7.4-10.4); MONOCYTES 0.5 % (2-11); NEUTROPHILS 96.7 % (40-80); RBC 3.51 10x6/uL (4.20-6.10); RDW 22.9 % (11.5-14.5); WBC 10.3 10x3/uL (4.8-10.8)
[2017-07-19 04:39] LABS: PLATELET COUNT 74 10x3/uL (130-400)
[2017-07-19 04:49] LABS: ALBUMIN 2.5 g/dL (3.4-5.0); ANION GAP 15.1 mmol/L (8-16); CARBON DIOXIDE 25.3 mmol/L (21.0-32.0); PHOSPHOROUS 6.2 mg/dL (2.5-4.9); POTASSIUM - SERUM 3.4 mmol/L (3.5-5.1)
[2017-07-19 04:52] LABS: ALBUMIN 2.5 g/dL (3.4-5.0); ANION GAP 15.1 mmol/L (8-16); BILIRUBIN - TOTAL 4.32 mg/dL (0.2-1.3); CARBON DIOXIDE 26.3 mmol/L (21.0-32.0); CREATININE - SERUM 4.2 mg/dL (0.6-1.3); CREATININE - SERUM 4.4 mg/dL (0.6-1.3); POTASSIUM - SERUM 3.4 mmol/L (3.5-5.1); PROTEIN - SERUM 6.3 g/dL (6.4-8.2)
--- NOTE | 2017-07-19 09:44 | NUR ---
AWAKE AND ALERT. ORIENTED X3 NO C/O THIS AM. ATE ALL OF CLEAR LIQUID TRAY. LUNGS ARE CLEAR BILATERALLY, NO COUGH NOTED. SKIN IS INTACT WITHOUT REDNESS. RIGHT JUGULAR TRIALYSIS CATH PATNET WITHOUT REDNESS AT INSERTION SITE. AT BEDSIDE. DENIES NEEDS.
--- NOTE | 2017-07-19 10:00 | NUR ---
TOOK AM MEDS WITHOUT DIFFICULTY. REFUSED LACTULOSE TODAY. DENIES NEEDS. AT BEDSIDE.
--- NOTE | 2017-07-19 10:01 | CN ---
PATIENT NAME:NENA BHATTI MEDICAL RECORD: [id number] : 54 LOCATION:[id number] ADMIT DATE: 07/01/17 ACCOUNT: [id number] CONSULTING PHYSICIAN: JUAN DANIEL DOHERTY MD REFERRING PHYSICIAN: PABLO PINEDO DO DATE OF CONSULTATION: 07/18/2017 HISTORY OF PRESENT ILLNESS: A 66-year-old gentleman well known to me with multiple medical problems, who has a history of coronary artery disease, status post fairly recent intervention, history of chronic renal insufficiency. He is currently undergoing dialysis with recent worsening of renal failure and hyperkalemia, found to have intermittent nonsustained ventricular tachycardia. These were of short duration, did not activate his underlying ICD. No therapy. We are asked to see him regarding his cardiovascular status. PAST MEDICAL HISTORY: Includes: 1. History of chronic renal insufficiency with recent worsening, currently dialyzing. 2. Hypertension. 3. Hyperlipidemia. 4. Diabetes mellitus. 5. Cerebrovascular disease status post bilateral AKAs. 6. Coronary artery disease as described above. 7. Malignant ventricular arrhythmias. ALLERGIES: None known. MEDICATIONS: Typically include Nasreen 60 mg p.o. every day, sotalol 80 b.i.d., aspirin 81 every day, Tramadol 50 mg q.6 hours p.r.n., Butrans patch on Friday, Bumex 1 mg 2 tablets b.i.d., insulin per scale, Protonix 40 every day. SOCIAL HISTORY: He currently resides with his . He is nonambulatory, but has been able to take care of his ADLs. REVIEW OF SYSTEMS: The patient reports easy bruising but reports no swollen glands. The patient reports no fever, no night sweats, no significant weight gain, no significant weight loss. No significant exercise tolerance. The patient reports no dry eyes, no irritation, no vision change. Patient reports no difficulty hearing and no ear pain. Patient reports no frequent nose bleeds or nose and sinus problems. Patient reports on arm pain on exertion. No shortness of breath while lying down. No history of heart murmur. Patient reports no cough, no wheezing or coughing up blood. Patient reports no abdominal pain, no vomiting. Normal appetite. No diarrhea and not vomiting blood. No nausea and no constipation. Patient reports no incontinence. No difficulty urinating. No hematuria. No increased frequency. Patient reports no muscle aches. No weakness, no arthralgias, no back pain. No swelling of the extremities. Patient reports no abnormal mole, no jaundice, no rashes. Reports no loss of consciousness. No weakness and no numbness. No seizures, dizziness, or headaches. The patient reports no depression, no sleep disturbance, feeling safe in a relationship and no alcohol abuse. Patient reports on fatigue. Reports no runny nose or sinus pressure. No itching, no hives, and no frequent sneezing. PHYSICAL EXAMINATION: GENERAL: Chronically ill appearing, in no acute distress. CONSULT REPORT [id number] BHATTINENA VITAL SIGNS: Blood pressure 102/59, pulse currently 71 and regular. HEENT: Normocephalic, atraumatic. NECK: No bruits noted. HEART: Regular. S3 gallop is noted. LUNGS: Fair air excursion. ABDOMEN: Soft, nontender. EXTREMITIES: He has previously well healed stumps bilaterally. IMPRESSION: Nonsustained ventricular tachycardia. This may improve with dialysis and correction of underlying electrolyte abnormalities. If it becomes more recurrent, could increase dose of sotalol. Given overall his multiple medical problems as discussed in primary care and farmworker machine's notes long-term prognosis is fairly poor at this point. TRANSINT:[id number] Voice Confirmation ID: [id number] DOCUMENT ID: [id number] JUAN DANIEL DOHERTY MD at 1001 CC: [id number] DICTATION DATE: 07/18/17 1235 CLINICAL REHABILITATION LIAISON: 07/18/17 1310 ADM IN [place] [id number] [place] [id number]
[2017-07-19 10:10] VITALS: BP 117/59
[2017-07-19 13:39] VITALS: BP 131/67
[2017-07-19 16:51] VITALS: BP 128/70
--- NOTE | 2017-07-19 17:00 | NUR ---
FSBS 236. GIVEN 8 UNITS HUMALOG SUBQ PER SS. SUPPER SERVED IN ROOM.
--- NOTE | 2017-07-19 19:23 | NUR ---
PATIENT IN BED RECIVING DYALISIS.
--- NOTE | 2017-07-19 21:13 | NUR ---
RAJINDER NURSE REPORTED THAT 4L WAS PULLED OFF DURING DYALISIS
[2017-07-20] VITALS: BP 105/58
--- NOTE | 2017-07-20 03:42 | NUR ---
RN NOTE: PT RESTING IN SUPINE POSITION WITH UNLABORED BREATHING. CENTRAL LINE SALINE LOCKED. TELEMETRY IN PLACE AND READING 74 PACED AT THIS ASSESSMENT. WILL CONTINUE TO MONITOR FOR NEEDS.
[2017-07-20 04:00] VITALS: BP 122/70
--- NOTE | 2017-07-20 07:53 | NUR ---
AWAKE AND ALERT. ORIENTED X3. NO C/O AT THIS TIME. LUNGS HAVE FAINT CRACKLES THROUGHOUT LUNG HILL, NO COUGH NOTED. SKIN IS INTACT WITHOUT REDNESS EXCEPT BUTTOCKS ARE REDDENED. WILL MONITOR. SUPRAPUBIC CATH IS PATENT WITH CLEAR REDDISH TINGED URINE. TRIALYSIS CATH TO RIGHT JUGULAR IS PATENT WITHOUT REDNESS AT INSERTION SITE. DENIES NEEDS.
[2017-07-20 08:20] VITALS: BP 103/52
--- NOTE | 2017-07-20 09:56 | NUR ---
REPOSITIONED IN BED FOR COMFORT. DENIES NEEDS.
[2017-07-20 11:17] LABS: ANION GAP 14.2 mmol/L (8-16); CALCIUM 7.6 mg/dL (8.5-10.1); CREATININE - SERUM 3.5 mg/dL (0.6-1.3); POTASSIUM - SERUM 3.2 mmol/L (3.5-5.1)
[2017-07-20 11:21] LABS: BASOPHILS 0 % (0-2); EOSINOPHILS 0 % (0-7); HEMATOCRIT 30.6 % (42.0-54.0); HEMOGLOBIN 9.9 g/dL (13.5-17.5); IMMATURE GRANULOCYTES 0.3 % (0-5); LYMPHOCYTES 1.7 % (15-50); MCH 28.1 pg (26.0-34.0); MCHC 32.4 g/dL (31.0-37.0); MCV 86.9 fL (80.0-100.0); MONOCYTES 0.7 % (2-11); NEUTROPHILS 97.3 % (40-80); RBC 3.52 10x6/uL (4.20-6.10); RDW 22.6 % (11.5-14.5)
[2017-07-20 11:22] LABS: PLATELET COUNT 56 10x3/uL (130-400); WBC 13.7 10x3/uL (4.8-10.8)
[2017-07-20 11:36] LABS: PLATELET ESTIMATE DECREASED
[2017-07-20 11:38] VITALS: BP 120/69
--- NOTE | 2017-07-20 12:00 | NUR ---
FSBS 201. GIVEN 10 UNITS HUMALOG SUBQ FOR SAME. SUPPER SERVED IN ROOM. CAUTIONED TO GO SLOWLY WITH REAL FOOD.
[2017-07-20 15:04] VITALS: BP 127/70
--- NOTE | 2017-07-20 17:45 | NUR ---
ATE OVER HALF OF TRAY. NO C/O NAUSEA OF PAIN WITH FOOD. NO CHANGES NOTED. DENIES NEEDS.
[2017-07-20 20:00] VITALS: BP 96/55
[2017-07-21 04:23] LABS: BASOPHILS 0 % (0-2); EOSINOPHILS 0 % (0-7); HEMATOCRIT 33.6 % (42.0-54.0); HEMOGLOBIN 10.7 g/dL (13.5-17.5); IMMATURE GRANULOCYTES 0.3 % (0-5); LYMPHOCYTES 1.4 % (15-50); MCH 28.2 pg (26.0-34.0); MCHC 31.8 g/dL (31.0-37.0); MCV 88.7 fL (80.0-100.0); MEAN PLATELET VOLUME 11.1 fL (7.4-10.4); MONOCYTES 0.2 % (2-11); NEUTROPHILS 98.1 % (40-80); PLATELET COUNT 59 10x3/uL (130-400); RBC 3.79 10x6/uL (4.20-6.10); RDW 22.8 % (11.5-14.5); WBC 13.9 10x3/uL (4.8-10.8)
[2017-07-21 04:47] LABS: ANION GAP 14.6 mmol/L (8-16); CALCIUM 7.8 mg/dL (8.5-10.1); CARBON DIOXIDE 27.1 mmol/L (21.0-32.0); MAGNESIUM - SERUM 2.2 mg/dL (1.8-2.4)
[2017-07-21 04:49] LABS: POTASSIUM - SERUM 3.7 mmol/L (3.5-5.1)
--- NOTE | 2017-07-21 07:10 | NUR ---
REPORT RECEIVED FROM CERTIFIED MAINTENANCE WELDER NURSE. CALL LIGHT IN REACH.
--- NOTE | 2017-07-21 08:10 | NUR ---
ASSESSMENT COMPLETED. DILAUDID 1 MG SIVP. CALL LIGHT IN REACH. WILL CONTINUE WITH PLAN OF CARE.
[2017-07-21 08:38] VITALS: BP 123/75
--- NOTE | 2017-07-21 08:51 | NUR ---
AM MEDS ADMINISTERED. HELD LACTULOSE D/T REFUSAL FROM PATIENT AND ALSO NH3 LEVEL OF 4. IN ROOM. CALL LIGHT IN REACH.
--- NOTE | 2017-07-21 10:37 | NUR ---
DIALYSIS IN ROOM AT THIS TIME.
--- NOTE | 2017-07-21 11:55 | NUR ---
FSBS 163 SO 4 UNITS SUBQ TO RIGHT ARM. FLORAJEN AND TUMS PO.
[2017-07-21 12:38] VITALS: BP 128/67
--- NOTE | 2017-07-21 13:50 | NUR ---
STILL RECEIVING DIALYSIS AT THIS TIME. TOLERATING WELL.
--- NOTE | 2017-07-21 15:55 | NUR ---
DIALYSIS IS COMPLETED. RECEIVED US OF LEFT UPPER ARM AT THIS TIME.
[2017-07-21 16:06] LABS: INR 2.04 (0.85-1.17); PROTIME 23.1 SECONDS (11.6-15.0)
[2017-07-21 16:16] VITALS: BP 124/68
--- NOTE | 2017-07-21 16:52 | NUR ---
LISA SMITH AND KEN PO. IV SOLUMEDROL. FSBS 198. 4 UNITS OF HUMALOG SUBQ TO RIGHT ARM. CALL LIGHT IN REACH.
--- NOTE | 2017-07-21 17:27 | NUR ---
PT RESTING, NO SIGNS OF ACUTE DISTRESS. BED IN LOWEST POSITION, SIDE RAILS UP X 2, CALL LIGHT WITHIN REACH.
--- NOTE | 2017-07-21 18:30 | NUR ---
NO CHANGES IN INITIAL ASSESSMENT. CALL LIGHT IN REACH. IN ROOM. WILL CONTINUE WITH PLAN OF CARE.
--- NOTE | 2017-07-21 20:00 | NUR ---
ASSESSMENT PER FLOWSHEET. RT IJ TRIALYSIS PATENT AND SALINE LOCKED.SINGER TO BEDSIDE DRAINAGE WITH DARK GREGORY COLORED URINE NOTED.TELM SHOWS SR W/1ST DEGREE AV BLOCK HR 84.
--- NOTE | 2017-07-21 21:45 | NUR ---
[id number]. HUMALOG INSULIN 20 UNIT GIVEN PER S/S SUBC TO LEFT ARM.
[2017-07-22] VITALS (10 sets, daily range): BP systolic 100–127; BP diastolic 51–77
--- NOTE | 2017-07-22 00:50 | NUR ---
EYES CLOSED RESPIRATIONS WITH EAS AND UNLABORED TURNED FROM SIDE TO SIDE.
[2017-07-22 05:58] LABS: BASOPHILS 0 % (0-2); EOSINOPHILS 0 % (0-7); HEMATOCRIT 31.3 % (42.0-54.0); HEMOGLOBIN 10.1 g/dL (13.5-17.5); IMMATURE GRANULOCYTES 0.3 % (0-5); LYMPHOCYTES 1.2 % (15-50); MCH 28.2 pg (26.0-34.0); MCHC 32.3 g/dL (31.0-37.0); MCV 87.4 fL (80.0-100.0); MEAN PLATELET VOLUME 11.6 fL (7.4-10.4); MONOCYTES 1.2 % (2-11); NEUTROPHILS 97.3 % (40-80); RBC 3.58 10x6/uL (4.20-6.10); RDW 22.4 % (11.5-14.5); WBC 12.7 10x3/uL (4.8-10.8)
[2017-07-22 06:22] LABS: PLATELET COUNT 49 10x3/uL (130-400)
[2017-07-22 06:34] LABS: ANION GAP 14.1 mmol/L (8-16); CALCIUM 7.9 mg/dL (8.5-10.1); CARBON DIOXIDE 28.4 mmol/L (21.0-32.0); CREATININE - SERUM 3.4 mg/dL (0.6-1.3); PHOSPHOROUS 6.2 mg/dL (2.5-4.9); POTASSIUM - SERUM 3.5 mmol/L (3.5-5.1)
--- NOTE | 2017-07-22 06:41 | NUR ---
MEDS GIVEN PER MAR. EXOH=[id number] NO COVERAGE NEEDED.
--- NOTE | 2017-07-22 07:55 | NUR ---
ASSESSMENT PER FLOW SHEET.PT WITHOUT DISTRESS.PT VERY ANXIOUS AND EASILY ANGERED THS AM.EXCORIATION NOTED TO BILATERAL BUTTOCKS AND UPPER POSTERIOR THIGHS. ALSO 2 ERASER SIZED OPENED AREAS WITH LIGHT PINK BLOODY DRAINAGE NOTED.PT CLEANED AND BUTT PASTE APLLIED AND POSITIONED ON RIGHT SIDE.ISOLATION MAINTAINED.
--- NOTE | 2017-07-22 12:26 | NUR ---
Rehab Prescreening Consult recieved and the chart has been reviewed. He is a good IRF candidate when he is medically stable. He has a consult pending with Dr Clements, and will need a permanent HD cath prior to coming to rehab. Discussed with the ANALY Trujillo RN. Rehab will continue to follow him. Rema Regalado RN Clinical Liaison, Rehab
--- NOTE | 2017-07-22 13:13 | NUR ---
NUTRIITON F/U CHART REVIEWED. SPOUSE AT BEDSIDE. PT TOLERATING RENAL ADA WITH ~50% INTAKE. NOW ON HD. POSSIBLE TX TO REHAB. WILL PROVIDE DIET, MONITOR PO INTAKE. RD FOLLOWING
--- NOTE | 2017-07-22 17:41 | NUR ---
PAGE TO DR. GIO AREVALO. IV INFUSION
--- NOTE | 2017-07-22 18:03 | NUR ---
SPOKE WITH LUCILLE VASQUEZ TO INFORM HER OF PT TRANSFER TO PCU V/S ICU.
[2017-07-22 19:18] LABS: ALBUMIN 2.4 g/dL (3.4-5.0); BILIRUBIN - DIRECT 2.73 mg/dL (0.00-0.30); BILIRUBIN - INDIRECT 1.13 mg/dL (0.00-1.00); BILIRUBIN - TOTAL 3.86 mg/dL (0.2-1.3); PROTEIN - SERUM 5.8 g/dL (6.4-8.2)
[2017-07-22 19:38] LABS: APTT 31.9 SECONDS (22.8-39.4); INR 2.01 (0.85-1.17); PROTIME 22.8 SECONDS (11.6-15.0)
--- NOTE | 2017-07-22 20:15 | NUR ---
Received patient from Med-Surg to 2308, patient connected to monitors and assessment completed per flowsheet. Patient AO x4, calm and cooperative. Eyes PERRLA @ 4mm with brisk response, sclera is slightly yellow and clear. S1/S2 noted NSR on telemetry with HR 71, rythmic and regular. Breathing is slightly shallow and unlabored on 1.5L via NC with O2 sat 95%, lung sounds clear bilateral upper with diminished mid and lower. Abdomen is soft and round with bowel sounds active x4, non-tender. Suprapubic cath in place, small concentrated urine noted. Stage 2 pressure ulcer noted buttocks, barrier cream applied and patient repositioned. Bilateral lower AKA, Upper pulses palpable with cap refill < 3 sec. R IJ trialysis cath dressing CDI, patent and saline locked. Patient denies pain or other needs at this time, all VSS and will continue to monitor.
--- NOTE | 2017-07-22 23:10 | NUR ---
Reassessment completed per flowsheet, patient resting in bed with eyes closed. Patient AO x4, calm and cooperative. Eyes PERRLA @ 4mm with brisk response, sclera is slightly yellowed. S1/S2 noted NSR on telemetry with HR 70, rythmic and regular. Breathing is slightly shallow and unlabored on 1.5L via NC with O2 sat 96%, lung sounds clear bilateral upper with diminished mid and lower. Bilateral lower AKA, upper pulses palpable with cap refill < 3 sec. Repositioned for comfort, barrier cream applied to buttocks. Denies pain or other needs at this time, all VSS and will continue to monitor.
[2017-07-23] VITALS (24 sets, daily range): BP systolic 100–126; BP diastolic 57–88
--- NOTE | 2017-07-23 00:30 | NUR ---
Argatroban infusion initiated at ordered rate, timed Lab draws ordered for 0230. Patient resting in bed with eyes closed, denies pain or other needs at this time. All VSS and will continue to monitor.
[2017-07-23 03:03] LABS: BASOPHILS 0 % (0-2); EOSINOPHILS 0 % (0-7); HEMATOCRIT 31.8 % (42.0-54.0); HEMOGLOBIN 10.4 g/dL (13.5-17.5); IMMATURE GRANULOCYTES 0.3 % (0-5); LYMPHOCYTES 2.8 % (15-50); MCH 28.7 pg (26.0-34.0); MCHC 32.7 g/dL (31.0-37.0); MCV 87.6 fL (80.0-100.0); MONOCYTES 0.2 % (2-11); NEUTROPHILS 96.7 % (40-80); PLATELET COUNT 59 10x3/uL (130-400); RBC 3.63 10x6/uL (4.20-6.10); RDW 22.2 % (11.5-14.5); WBC 14.9 10x3/uL (4.8-10.8)
--- NOTE | 2017-07-23 03:10 | NUR ---
Reassessment completed per flowsheet, patient resting in bed with eyes closed. Patient AO x4, calm and cooperative. Eyes PERRLA @ 4mm with brisk response, sclera is slightly reddened and clear. S1/S2 noted NSR on telemetry with HR 84, rythmic and regular. Breathing is slightly shallow and unlabored on 1.5L via NC with O2 sat 96%, lung sounds clear upper with diminished mid and bilateral lower. All pulses palpable with cap refill < 3 sec, skin warm/dry. Patient denies pain or other needs at this time, all VSS and will continue to monitor.
[2017-07-23 03:15] LABS: CALCIUM 7.7 mg/dL (8.5-10.1); CARBON DIOXIDE 28.9 mmol/L (21.0-32.0); CREATININE - SERUM 4.1 mg/dL (0.6-1.3); PHOSPHOROUS 6.5 mg/dL (2.5-4.9); POTASSIUM - SERUM 3.9 mmol/L (3.5-5.1)
[2017-07-23 03:20] LABS: APTT 44.2 SECONDS (22.8-39.4); INR 3.08 (0.85-1.17); PROTIME 32.1 SECONDS (11.6-15.0)
--- NOTE | 2017-07-23 03:30 | NUR ---
APTT resulted, Argatroban rate increased 25% to 0.625mcg/kg/min. redraw ordered for 529.
--- NOTE | 2017-07-23 06:00 | NUR ---
APTT resulted, value within calculated therapeutic range. No change needed at this time, will continue to monitor.
[2017-07-23 06:20] LABS: APTT 64.5 SECONDS (22.8-39.4); INR 4.84 (0.85-1.17); PROTIME 46.1 SECONDS (11.6-15.0)
--- NOTE | 2017-07-23 07:00 | NUR ---
REPORT RECEIVED FROM OFF GOING NURSE. SEE ASSESMENT IN FLOW SHEET. PT ALERT AND ORIENETED. DENIES PAIN. REMAINS ON CONTACT ISOLATION. BILATERAL AKA NOTED. FEMORAL PULSES PALPABLE. LEFT RADIAL PULSE WEAK BUT PALPABLE. LUE EDEMOTOUS. MISSING LEFT RING FINGER. URINE NOTED IN SUPRAPUBIC CATH TO BE CONCETRATED AND DARK. RIGHT IJ C/D/I WITH ARGATROBAN INFUSING AT 2.4ML/H. CALL LIGHT IN REACH. WILL CONT POC.
--- NOTE | 2017-07-23 09:00 | NUR ---
dr POWERS PAGED ABOUT LAB ORDERS BEING QD FOR PTT. SHE STATED GO WITH WHAT IS PROTOCOL. PT HAS A PTT WNL WITH DRUG THERAPY. NEED ONE MORE TO BE WNL. ORDERED PTT PER PROTOCOL.
--- NOTE | 2017-07-23 09:44 | NUR ---
NUTRITION F/U CHART REVIEWED. PT VISIT. REMAINS IN ISOLATION IN ICU.PT REPORTS GOOD INTAKE RENAL ADA BREAKFAST. WILL CONTINUE TO PROVIDE DIET, MONITOR INTAKE. RD FOLLOWING
--- NOTE | 2017-07-23 11:07 | NUR ---
DUE TO HEPATIC IMPAIRMENT, ARGATROBAN INITIATED ON 07/22 AT A RATE OF 0.5MCG/KG/MIN. ADJUST PER HIT PROTOCOL
--- NOTE | 2017-07-23 11:45 | NUR ---
PTT WNL FOR DRUG THERAPY.
--- NOTE | 2017-07-23 12:00 | NUR ---
PT RESTING IN BED WATCHING TV. NO NEEDS AT THIS TIME. CALL LIGHT IN REACH
[2017-07-23 12:10] LABS: APTT 82.6 SECONDS (22.8-39.4)
[2017-07-23 12:14] LABS: INR 7.68 (0.85-1.17); PROTIME 66.6 SECONDS (11.6-15.0)
--- NOTE | 2017-07-23 14:30 | NUR ---
BEDBATH OFFERED. PT REFUSED. ALLOWED A NEW GOWN HOWEVER
--- NOTE | 2017-07-23 15:45 | NUR ---
DIALYSIS NURSE AT BEDSIDE
--- NOTE | 2017-07-23 16:55 | NUR ---
PT REFUSED DINNER AT THIS TIME DUE TO NAUSEA FROM DIALYSIS. DOES NOT WANT ANTISEMETICS BUT WANTS TRAY SET TO ASIDE FOR WHENEVER HE IS DONE RECIEVING DIALYSIS.
--- NOTE | 2017-07-23 17:00 | NUR ---
PT HAD A LARGE BM. BED LINENS CHANGED. CREAM APPLIED TO BUTTOCKS. CALL LIGHT IN REACH. WILL CONT POC
--- NOTE | 2017-07-23 18:35 | NUR ---
PT STILL RECIEVING DIALYSIS. BREATHING NORMAL AND UNLABORED. CALL LIGHT IN REACH. VSS.
--- NOTE | 2017-07-23 19:10 | NUR ---
Assessment completed per flowsheet, patient sitting up in bed with eyes open watching TV. Patient AO x4, calm and cooperative. Eyes PERRLA @ 4mm with brisk response, sclera is slight yellowed. S1/S2 noted NSR with 1st degree block and HR 74, rythmic and regular. Breathing is slightly shallow and unlabored on 2L via NC with O2 sat 98%, lung sounds clear bilateral upper and mid with diminished lower. Abdomen is round and soft with bowel sounds active x4, non-tender. Suprapubic watkins in place, concentrated yellow urine noted. Bilateral lower AKA, Upper pulses palpable with Cap refill < 3 sec. R IJ Trialysis dressing CDI, patent with Argatroban 0.625 mcg/kg infusing. Patient denies pain or other needs at this time, all VSS and will continue to monitor.
--- NOTE | 2017-07-23 21:00 | NUR ---
HS meds given without difficulty, patient repositioned for comfort. Linen change/bed bath performed, tolerated well. No visitors at this time, all VSS and will continue to monitor.
--- NOTE | 2017-07-23 23:10 | NUR ---
Reassessment completed per flowsheet, patient resting in bed with eyes closed. Patient AO x4, calm and cooperative. Eyes PERRLA @ 4mm with brisk response, sclera is slight reddened. S1/S2 noted NSR with possible 1st degree block with HR 71, rythmic and regular. Breathing is slightly shallow and unlabored on 2L via NC with O2 sat 99%, lung sounds clear bilateral upper and mid with diminished lower. Bilateral lower AKA, L hand ring finger amputation. All pulses palpable with cap refill < 3 sec, skin warm/dry. Repositioned for comfort, no further needs at this time. All VSS and will continue to monitor.
[2017-07-24] VITALS (26 sets, daily range): BP systolic 105–149; BP diastolic 6–95
--- NOTE | 2017-07-24 03:00 | NUR ---
Reassessment completed per flowsheet, patient resting in bed with eyes closed. Patient AO x4, cqlm and cooperative. Eyes PERRLA @ 4mm with brisk response, sclera is slightly yellowed. S1/S2 noted NSR with 1st degree block on telemetry with HR 70, rythmic and regular. Breathing is even and unlabored on 2L via NC with O2 sat 97%, lung sounds clear bilateral upper and mid with diminished lower. Suprapubic cath in place, concentrated urine noted. Full ROM upper extremities with pulses palpable, bilateral lower AKA. Repositioned for comfort, denies pain or other needs at this time. All VSS and will continue to monitor.
[2017-07-24 04:24] LABS: BASOPHILS 0 % (0-2); EOSINOPHILS 0 % (0-7); IMMATURE GRANULOCYTES 0.2 % (0-5); LYMPHOCYTES 2.9 % (15-50); MCH 28.3 pg (26.0-34.0); MCHC 32.3 g/dL (31.0-37.0); MCV 87.8 fL (80.0-100.0); MEAN PLATELET VOLUME 11.6 fL (7.4-10.4); MONOCYTES 1.6 % (2-11); NEUTROPHILS 95.3 % (40-80); PLATELET COUNT 59 10x3/uL (130-400); RBC 3.53 10x6/uL (4.20-6.10); RDW 22.2 % (11.5-14.5); WBC 11.6 10x3/uL (4.8-10.8)
[2017-07-24 04:36] LABS: APTT 84.7 SECONDS (22.8-39.4)
[2017-07-24 04:40] LABS: INR 10.2 (0.85-1.17); PROTIME 83.6 SECONDS (11.6-15.0)
[2017-07-24 04:50] LABS: ANION GAP 12.3 mmol/L (8-16); CALCIUM 7.5 mg/dL (8.5-10.1); CARBON DIOXIDE 28.9 mmol/L (21.0-32.0); MAGNESIUM - SERUM 2.1 mg/dL (1.8-2.4)
[2017-07-24 04:54] LABS: CREATININE - SERUM 2.9 mg/dL (0.6-1.3); POTASSIUM - SERUM 3.2 mmol/L (3.5-5.1)
--- NOTE | 2017-07-24 05:00 | NUR ---
AM labs collected without difficulty, patient resting in bed with eyes closed. Repositioned for comfort, no further needs at this time and will continue to monitor.
--- NOTE | 2017-07-24 07:00 | NUR ---
REPORT RECIEVED FROM OFF GOING NURSE. SEE ASSESSMENT IN FLOW SHEET. PT IN PLEASANT MOOD. DENIES PAIN. REPOSITIONED TO LEFT SIDE FOR COMFORT. HOB ELEVATED PER REQUESTE. BILATERAL AKA NOTED. 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 SUPRAPUBIC CATH NOTED WITH CONCETRATED URINE. NO NEEDS AT THIS TIME. CALL LIGHT IN REACH. WILL CONT POC
--- NOTE | 2017-07-24 08:44 | NUR ---
DR POWERS PAGEKeri AND SPOKE WITH HER ABOUT CBC AND COAGULATION LAB VALUES. NO NEW ORDRES AT THIS TIME. CONT POC AND ARGATROBAN TX AT CURRENT DOSE.
--- NOTE | 2017-07-24 10:00 | NUR ---
PT'S AT BEDSIDE. UPDATED ON PT'S CONDITION AND QUESTIONS ANSWERED. NO CHANGE IN PT'S CONDITION AT THIS TIME.
[2017-07-24 13:04] LABS: APTT 105.5 SECONDS (22.8-39.4)
[2017-07-24 13:05] LABS: PROTIME 107.6 SECONDS (11.6-15.0)
[2017-07-24 13:06] LABS: INR 13.99 (0.85-1.17)
--- NOTE | 2017-07-24 13:12 | NUR ---
NEW PTT 105.5 PT 107.6 AND INR 13.99. NEW DOSE IS 0.462MCG/KG/MIN 1.8ML/H. DR POWERS PAGED AND AWARE OF DOSE CHANGE. WILL RECHECK CBC AND PTT PTT/INR IN 4 HOURS PER ORDERS. WILL CONT POC
--- NOTE | 2017-07-24 14:10 | NUR ---
PT WATCHING TV WITH NO S/SX OF DISTRESS/DISCOMFORT NOTED. VSS. WILL CONT POC.
--- NOTE | 2017-07-24 15:45 | NUR ---
PT HAD MEDIUM BM. VERY SOFT. NEW BED LINES AND PT CLEANSED. BUTTPASTE APPLIED TO BOTTOM.
--- NOTE | 2017-07-24 16:32 | NUR ---
FAMILY AT BEDSIDE. PT UP IN BED EATING DINNER. NO C/O PAIN OR NEEDS AT THIS TIME. WILL CONT POC
--- NOTE | 2017-07-24 18:33 | NUR ---
PT IN ROOM WATCHING TV. REPOSITIONED USING A PILLOW. DENIES PAIN AT THIS TIME. BREATHING NORMAL AND UNLABORED. VSS. CALL LIGHT IN REACH. WILL CONT POC
--- NOTE | 2017-07-24 19:30 | NUR ---
SHIFT ASSESSMENT COMPLETE. PT IS A&O X4 WITH NO SIGNS OF ACUTE DISTRESS NOTED. HE DENIES ANY PAIN AT THIS TIME. HE IS SITTING UP IN BED WEARING HIS GLASSES AND WATCHING TV. NC @ 2 L/MIN, RR 16, O2 SAT 100%. S1S2 AUDIBLE, HR 71 NORMAL SINUS RHYTHM, BP 122/72 NIBP. MIDLINE CHEST HAS INCISION SCAR. BS ACTIVE X4, ABD IS DISTENDED BUT SOFT, NON-TENDER TO TOUCH. SUPRA-PUBIC CATH NOTED DRAINING DARK CONCENTRATED URINE. R IJ TRIALYSIS CATH INFUSING ARGATROBAN AT THIS TIME. DRESSING CDI. L HAND RING FINGER AMPUTATION, BILAT LOWER EXT AKA. REFILLED REFRESHMENTS. NO FURTHER NEEDS.
--- NOTE | 2017-07-24 21:20 | NUR ---
NO VISITORS AT THIS TIME. PT IS SITTING UP IN BED AND TOOK PO MEDS WITHOUT COMPLICATION. FSBS READ 248, ADMINISTERED 8 UN HUMALOG PER SLIDING SCALE. REPOSITIONED FOR COMFORT. NO FURTHER NEEDS AT THIS TIME.
--- NOTE | 2017-07-24 23:30 | NUR ---
REASSESSMENT COMPLETE. PT IS LYING ON HIS LEFT SIDE, BUTTOCKS HAS SMALL REDDENED AREA NOTED. VSS. NO CHANGES FROM PREVIOUS ASSESSMENT. ARGANTROBAN INFUSING. PT DENIES ANY NEEDS AT THIS TIME. WILL CONT WITH POC.
[2017-07-25] VITALS (16 sets, daily range): BP systolic 106–134; BP diastolic 58–78
--- NOTE | 2017-07-25 01:00 | NUR ---
REPOSITIONED PT ON BACKSIDE. HE DENIES ANY NEEDS AT THIS TIME. VSS. WILL CONT TO MONITOR.
--- NOTE | 2017-07-25 03:20 | NUR ---
PARTIAL LINEN CHANGE COMPLETE. PT HAD LARGE LIQUID BM. HE IS IN GOOD SPIRITS AT THIS TIME AND REQUESTS HIS COFFEE AT 0600. VSS. REASSESSMENT COMPLETE. NO CHANGES NOTED. WILL CONT WITH POC.
--- NOTE | 2017-07-25 05:30 | NUR ---
REFILLED PT'S REFRESHMENTS. PT IS SITTING UP IN BED WITH CALL LIGHT IN REACH. REPOSITIONED FOR COMFORT. WILL CONT TO MONITOR.
[2017-07-25 06:20] LABS: BASOPHILS 0 % (0-2); EOSINOPHILS 0 % (0-7); HEMOGLOBIN 9.9 g/dL (13.5-17.5); IMMATURE GRANULOCYTES 0.2 % (0-5); LYMPHOCYTES 1.3 % (15-50); MCH 28.9 pg (26.0-34.0); MCV 87.5 fL (80.0-100.0); MONOCYTES 1.5 % (2-11); PLATELET COUNT 66 10x3/uL (130-400); RBC 3.43 10x6/uL (4.20-6.10); RDW 21.8 % (11.5-14.5); WBC 12.4 10x3/uL (4.8-10.8)
[2017-07-25 06:33] LABS: APTT 84.4 SECONDS (22.8-39.4)
[2017-07-25 06:46] LABS: INR 10.6 (0.85-1.17); PROTIME 86.2 SECONDS (11.6-15.0)
--- NOTE | 2017-07-25 06:48 | NUR ---
LAB CALLED. CRITICAL VALUES REVIEWED. PTT 86.2, INR 10.6 WILL REPORT TO ONCOMING NURSE.
[2017-07-25 07:04] LABS: ANION GAP 16.7 mmol/L (8-16); CALCIUM 7.7 mg/dL (8.5-10.1); CARBON DIOXIDE 25.8 mmol/L (21.0-32.0); MAGNESIUM - SERUM 2.1 mg/dL (1.8-2.4); POTASSIUM - SERUM 3.5 mmol/L (3.5-5.1)
[2017-07-25 07:11] LABS: CREATININE - SERUM 3.9 mg/dL (0.6-1.3); PHOSPHOROUS 6.4 mg/dL (2.5-4.9)
--- NOTE | 2017-07-25 07:52 | NUR ---
UP IN BED AWAKE AT THIS TIME. NO ACUTE DISTRESS NOTED. DENIES ANY NEEDS. PT ALERT AND ORIENTED. ABLE TO STATE NEEDS. WILL CONTNIUE PLAN OF CARE.
--- NOTE | 2017-07-25 09:58 | NUR ---
NUTRITION F/U PT REMAINS IN ICU. ISOLATION WITH FAMILY AT BEDSIDE. PT REPORTS GOOD INTAKE RENAL ADA BREAKFAST. WILL CONTINUE TO PROVIDE DIET, MONITOR INTAKE. RD FOLLOWING
--- NOTE | 2017-07-25 10:10 | NUR ---
PER DR TOLEDO CHANGE LACTULOSE FROM 20G/30ML BID TO DAILY. AMMONIA LEVEL NOTED AT 10. ORDERS PLACED.
--- NOTE | 2017-07-25 11:35 | NUR ---
PER DR HAMMOND. STOP ARGATROBAN BECAUSE PT IS STARTING LOVENOX NOW. WILL FOLLOW ORDERS.
--- NOTE | 2017-07-25 13:13 | NUR ---
CONTINENT BOWEL MOVEMENT AT THIS TIME. BROWN AND LIQUID, MEDIUM IN SIZE. BRII CARE AND SINGER CARE PROVIDED WITH BED BATH AND LINEN CHANGE. NO ACUTE DISTRESS NOTED. WILL CONTINUE PLAN OF CARE.
--- NOTE | 2017-07-25 13:14 | NUR ---
NOTED PT TO GO TO ROOM 2130. WILL CALL REPORT TO TRANSFER SHORTLY.
--- NOTE | 2017-07-25 13:29 | NUR ---
REPORT CALLED TO TOM. WILL TRANSFER PT SHORTLY.
--- NOTE | 2017-07-25 13:58 | NUR ---
TRANSFERRED TO ROOM 2130 AT THIS TIME WITH ALL PERSONAL ITEMS VIA BED ACCOMPANIED BY HOSPITAL STAFF. NO ACUTE DISTRESS NOTED. NO FURTHER ACTIONS.
--- NOTE | 2017-07-25 14:00 | NUR ---
RECEIVED PT TO ROOM 2130 VIA BED. PT A/O X4. BILAT AKA, SUPERPUBIC CATHETER DRAINING TO GRAVITY. ORIENTED PT TO ROOM AND CALL LIGHT. PROVIDED PT WITH DIET [place]ON [place]. DIALYSIS NURSE AT BEDSIDE GETTING READY TO DO DIALYSIS. PT DENIES ANY NEEDS AT THIS TIME. CALL LIGHT IN REACH, NAD NOTED, WILL CONTINUE PLAN OF CARE.
--- NOTE | 2017-07-25 16:27 | NUR ---
BLOOD SUGAR OF 159, 8UNITS OF HUMALOG GIVEN PER S/S. PT STILL ON DIALYSIS, DENIES ANY NEEDS AT THIS TIME, CALL LIGHT IN REACH, NAD NOTED.
--- NOTE | 2017-07-25 19:07 | NUR ---
RECEIVED REPORT, WILL ASSUME CARE OF PT, PT FINISHING UP WITH DIALYSIS, DENIES ANY NEEDS AT THIS TIME, CALL LIGHT IN REACH, WILL CONTINUE PLAN OF CARE
--- NOTE | 2017-07-26 02:09 | NUR ---
PT SLEEPING, SRX2, CALL LIGHT IN REACH, WILL CONTINUE PLAN OF CARE
--- NOTE | 2017-07-26 04:44 | NUR ---
BLOOD COLLECTED AND TAKE TO LAB
[2017-07-26 05:22] LABS: APTT 49.4 SECONDS (22.8-39.4); PROTIME 31.4 SECONDS (11.6-15.0)
--- NOTE | 2017-07-26 05:35 | NUR ---
PT IN BED RESTING QUIETLY. BREATHING EVEN AND UNLABORED. BED IN LOW POSITION, CALL LIGHT WITHIN REACH. WILL CTM.
--- NOTE | 2017-07-26 07:36 | NUR ---
PATIENT REMAINS IN ISOLATION FOR E COLI IN URINE. ALERT/ORIENT X4. OXGEN ON AT 1L PER N/C. TELEMTRY IN PLACE. CALL LIGHT WITHIN REACH. VOICES NO NEEDS AT THIS TIME.
[2017-07-26 08:56] LABS: BASOPHILS 0 % (0-2); EOSINOPHILS 0 % (0-7); HEMATOCRIT 29.6 % (42.0-54.0); HEMOGLOBIN 9.7 g/dL (13.5-17.5); IMMATURE GRANULOCYTES 0.1 % (0-5); LYMPHOCYTES 2.4 % (15-50); MCH 28.5 pg (26.0-34.0); MCHC 32.8 g/dL (31.0-37.0); MCV 87.1 fL (80.0-100.0); MEAN PLATELET VOLUME 10.9 fL (7.4-10.4); MONOCYTES 1.1 % (2-11); PLATELET COUNT 83 10x3/uL (130-400); RDW 21.5 % (11.5-14.5); WBC 14.9 10x3/uL (4.8-10.8)
[2017-07-26 09:15] LABS: NEUTROPHILS 96.4 % (40-80); PLATELET ESTIMATE DECREASED
--- NOTE | 2017-07-26 11:30 | NUR ---
GLUCOSE LEVEL 225. EIGHT UNITS OF SLIDING SCALE INSULIN GIVEN
--- NOTE | 2017-07-26 12:48 | NUR ---
DR. POWERS INTO SEE PATIENT NEW ORDERS RECEIVED
--- NOTE | 2017-07-26 14:06 | NUR ---
PATIENTS IN ROOM VISITING. CONTACT ISOLATION PRECAUSIONS MAINTAINED
--- NOTE | 2017-07-26 17:00 | NUR ---
GLUCOSE LEVEL 325. TWELEVE UNITS OF SLIDING SCALE INSULIN GIVEN
--- NOTE | 2017-07-26 19:10 | NUR ---
RECEIVED REPORT, WILL ASSUME CARE OF PT, PT SLEEPING, NO DISTRESS NOTICED, CALL LIGHT IN REACH, WILL CONTINUE PLAN OF CARE
--- NOTE | 2017-07-26 21:22 | NUR ---
BS-205-4 UNIT [facility] GIVEN
[2017-07-26 21:36] VITALS: BP 105/50
--- NOTE | 2017-07-27 | NUR ---
PT RESTING WELL, NO CHANGES NOTED. ASSESSMENTS UNCHANGED. CALL LIGHT WITHIN REACH. WILL MONITOR.
[2017-07-27 01:32] VITALS: BP 110/65
[2017-07-27 04:27] VITALS: BP 123/71
[2017-07-27 05:31] LABS: APTT 36.4 SECONDS (22.8-39.4); INR 2.01 (0.85-1.17); PROTIME 22.8 SECONDS (11.6-15.0)
--- NOTE | 2017-07-27 07:20 | NUR ---
REPORT RECEIVED. RR EVEN AND UNLABORED, PT INCONTINENT SMALL AMT STOOL. CLEANED PT UP X2 ASSIST AND REPOSTIONED HIM IN THE BED. DENIES FURTHER NEEDS AT THIS TIME. WILL CTM.
[2017-07-27 09:06] VITALS: BP 116/58
--- NOTE | 2017-07-27 11:55 | NUR ---
NOON MEDS GIVEN. FAMILY AT BEDSIDE. DISCUSSED PLAN OF CARE. PT AND FAMILY DENIES FURTHER NEEDS AT THIS TIME. WILL CTM.
[2017-07-27 12:00] VITALS: BP 104/58
[2017-07-27 16:00] VITALS: BP 136/70
--- NOTE | 2017-07-27 16:00 | NUR ---
PT INCONTIENT LARGE AMT UNFORMED BROWN STOOL. PROVIDED PERINEAL CARE AND APPLIED CREAM TO BUTTOCK. PTS BUTTOCK AREA IS VERY EXCORIATED. ASSISTED PT X2. DENIES FURTHER NEEDS, WILL CHECK BS AND FOLLOW UP WITH SSI.
--- NOTE | 2017-07-27 18:30 | NUR ---
RR EVEN AND UNLABORED, PT DENIES NEEDS AT THIS TIME. WILL GIVE REPORT ON PT CONDTION FOR THE DAY.
[2017-07-27 19:00] VITALS: BP 123/66
--- NOTE | 2017-07-27 19:33 | NUR ---
RECEIVED REPORT, WILL ASSUME CARE OF PT, DENIES ANY NEEDS AT THIS TIME, BED IS LOW, SRX3, CALL LIGHT IN REACH, WILL CONTINUE PLAN OF CARE
[2017-07-28 00:29] VITALS: BP 117/68
[2017-07-28 05:03] VITALS: BP 121/77
[2017-07-28 05:48] LABS: BASOPHILS 0 % (0-2); EOSINOPHILS 0 % (0-7); HEMATOCRIT 26.9 % (42.0-54.0); HEMOGLOBIN 8.8 g/dL (13.5-17.5); IMMATURE GRANULOCYTES 0.2 % (0-5); LYMPHOCYTES 3.6 % (15-50); MCH 28.2 pg (26.0-34.0); MCHC 32.7 g/dL (31.0-37.0); MCV 86.2 fL (80.0-100.0); MEAN PLATELET VOLUME 11.9 fL (7.4-10.4); MONOCYTES 1.6 % (2-11); NEUTROPHILS 94.6 % (40-80); RBC 3.12 10x6/uL (4.20-6.10); RDW 20.9 % (11.5-14.5); WBC 12.6 10x3/uL (4.8-10.8)
[2017-07-28 05:52] LABS: PLATELET COUNT 97 10x3/uL (130-400)
[2017-07-28 06:07] LABS: APTT 31.7 SECONDS (22.8-39.4); INR 1.62 (0.85-1.17); PROTIME 19.2 SECONDS (11.6-15.0)
[2017-07-28 06:19] LABS: ALBUMIN 2.4 g/dL (3.4-5.0); ANION GAP 15.1 mmol/L (8-16); BILIRUBIN - TOTAL 2.7 mg/dL (0.2-1.3); CALCIUM 7.6 mg/dL (8.5-10.1); CARBON DIOXIDE 26.9 mmol/L (21.0-32.0); CREATININE - SERUM 4.1 mg/dL (0.6-1.3); PHOSPHOROUS 6.4 mg/dL (2.5-4.9); PROTEIN - SERUM 5.7 g/dL (6.4-8.2)
--- NOTE | 2017-07-28 07:27 | NUR ---
AM ROUNDING- RECEIVED REPORT FROM SYRUP FILTERER NURSE JESUS. PT IS CURRENTLY SITTING UP IN BED WITH EYES OPEN. PT IS C/O INDEGESTION/HEARTBURN. I INFORMED PT I WOULD LOOK AND SEE WHAT HE HAS ORDERED OR CALL THE DOCTOR IF DOESN'T HAVE ANYTHING. PT IS VERY RUDE IN RESPONSE. I INFORMED PT I CANNOT DO ANYTHING WITHOUT ORDERS BUT I WILL CHECK. PT IS IN CONTACT ISOLATION. ON 02 AT 1L VIA NC. ON MONITOR SHOWING SR, HR 72 WITH BBB AND FIRST DEGREE AV BLOCK (PER FRANCK IN TELEMETRY). IV SEEN TO RIGHT IJ (TRIALYSIS) THAT IS CURRENTLY SALINE LOCKED. RESERVE RIGHT ARM (FOR CLOT PER JESUS). SINGER CATHETER SEEN WITH SLIGHTLY CONCENTRATED URINE. BILATERAL BKA SEEN. LEFT HAND, RING FINGER AMPUTATED. PT HAS TUMS ORDERED FOR 0800. WILL GIVE ORDERED. WILL CONTINUE TO MONITOR AND CONTINUE WITH PLAN OF CARE.
[2017-07-28 08:14] VITALS: BP 120/72
[2017-07-28 12:05] VITALS: BP 120/72
[2017-07-28 16:18] VITALS: BP 123/69
--- NOTE | 2017-07-28 17:49 | NUR ---
CONENTS FOR PROCEDURE SIGNED BY PT AND PLACED IN CHART (ONE SHEET FILLED OUT BY ). PT INSTRUCTED TO NOT EAT OR DRINK ANYTHING AFTER MIDNIGHT TONIGHT. NPO SIGN PLACED ON DOOR. PT IS RECEIVING DIALYSIS IN ROOM NOW. NO NEED AT THIS TIME. IS AT BEDSIDE. WILL CONTINUE TO MONITOR.
[2017-07-28 19:00] VITALS: BP 112/65
--- NOTE | 2017-07-28 19:00 | NUR ---
DILAYSIS CURRENTLY IN PROGRESS. VITALS REMAIN STABLE.
--- NOTE | 2017-07-28 20:29 | NUR ---
Mr. Lopez had bedside hemodialysis today via his right IJ Triaysis catheter from 1742 until 2042. Average blood flow was 400 mls/minute. Net fluid removed was 3000 mls. Post vital signs were: B/P: 112/65, HR: 74, Temp: 97.3, Resps:18. No problems.
--- NOTE | 2017-07-28 21:42 | NUR ---
HS MEDS GIVEN WITH FRESH ICE WATER, BS 156, NO COVERAGE GIVEN DUE TO PT BEING NPO AFTER MN FOR SURGERY IN THE AM.
[2017-07-29 01:21] VITALS: BP 119/66
--- NOTE | 2017-07-29 03:30 | NUR ---
RESTING WITH EYES CLOSED, RESPERATIONS EVEN, NO S/S DISTRESS NOTED.
[2017-07-29 04:00] VITALS: BP 118/69
--- NOTE | 2017-07-29 05:26 | NUR ---
AM BS, 155, NO COVERAGE GIVEN, PT NPO FOR HEMOSPLIT PLACEMENT TO BE DONE TODAY.
[2017-07-29 05:36] LABS: BASOPHILS 0 % (0-2); EOSINOPHILS 0 % (0-7); HEMATOCRIT 26.9 % (42.0-54.0); HEMOGLOBIN 8.8 g/dL (13.5-17.5); IMMATURE GRANULOCYTES 0.4 % (0-5); LYMPHOCYTES 1.8 % (15-50); MCH 28.5 pg (26.0-34.0); MCHC 32.7 g/dL (31.0-37.0); MCV 87.1 fL (80.0-100.0); MEAN PLATELET VOLUME 12.1 fL (7.4-10.4); MONOCYTES 3.2 % (2-11); NEUTROPHILS 94.6 % (40-80); PLATELET COUNT 98 10x3/uL (130-400); RBC 3.09 10x6/uL (4.20-6.10); WBC 11.4 10x3/uL (4.8-10.8)
[2017-07-29 05:57] LABS: ALBUMIN 2.5 g/dL (3.4-5.0); ANION GAP 11.8 mmol/L (8-16); BILIRUBIN - TOTAL 2.81 mg/dL (0.2-1.3); CALCIUM 7.4 mg/dL (8.5-10.1); CARBON DIOXIDE 29.9 mmol/L (21.0-32.0); CREATININE - SERUM 3.2 mg/dL (0.6-1.3); PHOSPHOROUS 5.3 mg/dL (2.5-4.9); POTASSIUM - SERUM 3.7 mmol/L (3.5-5.1)
--- NOTE | 2017-07-29 07:38 | NUR ---
AM ROUNDING- RECEIVED REPORT FROM CONVERSION WORKER NURSE GERALDINE. PT IS CURRENTLY LAYING IN BED ON BACK WITH EYES CLOSED RESTING. IN CONTACT ISOLATION. NPO CURRENTLY FOR PROCEDURE TODAY. ON 02 AT 2L VIA NC. ON MONITOR SHOWING SR, HR 69 WITH BBB AND FIRST DEGREE AV BLOCK. RIGHT IJ SEEN WITH NURSE PORT THAT IS CURRENTLY SALINE LOCKED. SUPRAPUBIC CATHETER SEEN. NO NEED AT THIS CURRENT TIME. WILL CONTINUE TO MONITOR AND CONTINUE WITH PLAN OF CARE.
[2017-07-29 08:42] VITALS: BP 121/66
--- NOTE | 2017-07-29 11:15 | NUR ---
PER FRANCK SIMPSON, HUMAN RESOURCES DIRECTOR (WATCHING TELEMETRY AT THIS TIME) STATES PT HAD RUN OF V-TACH. LIBORIO, CHARGE NURSE WENT TO CHECK ON PT. PT STATES HE IS FINE I ACTUALLY JUST WOKE UP FROM [facility]. LUCILLE VASQUEZ, JOSE ANTONIO ON UNIT AND IS INFORMED OF THIS. WILL CALL CARDIOLOGY AND INFORM THEM OF THIS.
--- NOTE | 2017-07-29 11:18 | NUR ---
DR. TSANG PAGED REGARDING RUN OF V-TACH.
--- NOTE | 2017-07-29 11:24 | NUR ---
RECEIVED CALLBACK FROM DR. TSANG. DR. TSANG MADE AWARE OF PTS RUN OF V-TACH. NO NEW ORDERS RECEIVED.
[2017-07-29 12:09] VITALS: BP 118/45
--- NOTE | 2017-07-29 12:14 | NUR ---
EKG DONE BY NURSING STUDENTS AND INSTRUCTOR AND PLACED IN CHART.
--- NOTE | 2017-07-29 15:53 | NUR ---
Patient Name: NENA BHATTI Encounter No: [id number] : 1950 Primary Insurance: MEDICARE A & B Anticipated DC Date: 07-30-2017 Planned Disposition: Inpatient Rehab External Planned Provider: [facility] INPATIENT REH[facility] DCP follow-up note: CM MET WITH PT AND SPOUSE IN ROOM TO DISCUSS DISCHARGE NEEDS AND PLANNING. CM DISCUSSED AVAILABILITY OF HOME HEALTH, REHAB SERVICES AND MEDICAL EQUIPMENT. PT AND SPOUSE WOULD LIKE PT CONSIDERED FOR INPATIENT REHAB AT [facility] WITH GOAL OF PT RETURNING HOME AFTER REHAB. SPOUSE TO TRANSPORT HOME AT DISCHARGE. IMPORTANT MESSAGE FROM MEDICARE PROVIDED AND EXPLAINED. CM SPOKE TO RYLIE OF INPATIENT REHAB, THEY PLAN TO ACCEPT PT TOMORROW FOR REHAB IF STABLE FOR DISCHARGE TO REHAB. PT NOTIFIED, IN AGREEMENT WITH DISCHARGE TO INPATIENT REHAB. WHEN DISCHARGE ORDERS RECEIVED, NOTIFY [facility] INPATIENT REHAB; REHAB TO CONTACT MED 2 NURSE WITH ROOM NUMBER WHEN READY TO ACCEPT PT AND NURSE REPORT. Mac Valdez, CASE MANAGEMENT
[2017-07-29 16:29] VITALS: BP 126/68
--- NOTE | 2017-07-29 18:04 | NUR ---
DR. RENNER ON UNIT. DR. RENNER STATES SURGERY FOR TONIGHT HAS BEEN CANCELLED PT WILL GO TO SURGERY TOMORROW. TRAY HAS BEEN ORDERED FOR PT.
--- NOTE | 2017-07-29 18:47 | NUR ---
PT IS CURRENTLY SITTING UP IN BED WITH EYES OPEN RESTING EATING DINNER. IS AT BEDSIDE. WHEN ASKED PT ABOUT I&O, PT RUDELY STATES HE DOESN'T KNOW WHY I'M ASKING HIM IF HE HAS HAD A BM TODAY DUE TO HIM NOT EATING TODAY (CLEARLY IRRIATED REGARDING HIM BEING NPO TODAY AND DR. RENNER CANCELLING PROCEDURE TONIGHT). NO NEED AT THIS CURRENT TIME. WILL CONTINUE TO MONITOR.
[2017-07-29 20:00] VITALS: BP 118/60
[2017-07-30] VITALS (9 sets, daily range): BP systolic 101–129; BP diastolic 50–67
--- NOTE | 2017-07-30 04:09 | NUR ---
PT LYING IN BED ON HIS LEFT SIDE, EYES CLOSED, RESPIRATIONS EVEN AND UNLABORED, RESTING COMFORTABLY. CONTINUE TO MONITOR CLOSELY. BED LOW, CALL LIGHT IN REACH, SIDE RAILS X 2, HOB FLAT AT THIS TIME.
--- NOTE | 2017-07-30 06:08 | NUR ---
PATIENT IS RESTING AT THIS TIME. LABS DRAWN AT 0530. PATINET TOLERATED. NPO AFTER MIDNIGHT. BED LOW, CALL LIGHT IN REACH.
[2017-07-30 06:17] LABS: BASOPHILS 0 % (0-2); EOSINOPHILS 0 % (0-7); HEMATOCRIT 26.1 % (42.0-54.0); HEMOGLOBIN 8.5 g/dL (13.5-17.5); IMMATURE GRANULOCYTES 0.3 % (0-5); LYMPHOCYTES 2.8 % (15-50); MCH 28.5 pg (26.0-34.0); MCHC 32.6 g/dL (31.0-37.0); MCV 87.6 fL (80.0-100.0); MEAN PLATELET VOLUME 11.5 fL (7.4-10.4); MONOCYTES 0.8 % (2-11); NEUTROPHILS 96.1 % (40-80); PLATELET COUNT 94 10x3/uL (130-400); RBC 2.98 10x6/uL (4.20-6.10); RDW 21.1 % (11.5-14.5); WBC 11.8 10x3/uL (4.8-10.8)
[2017-07-30 06:54] LABS: ALBUMIN 2.4 g/dL (3.4-5.0); ANION GAP 15.2 mmol/L (8-16); BILIRUBIN - TOTAL 2.43 mg/dL (0.2-1.3); CALCIUM 7.4 mg/dL (8.5-10.1); CARBON DIOXIDE 27.2 mmol/L (21.0-32.0); CREATININE - SERUM 3.8 mg/dL (0.6-1.3); PHOSPHOROUS 6.6 mg/dL (2.5-4.9); PROTEIN - SERUM 5.9 g/dL (6.4-8.2)
[2017-07-30 06:55] LABS: POTASSIUM - SERUM 4.4 mmol/L (3.5-5.1)
--- NOTE | 2017-07-30 07:45 | NUR ---
AM ROUNDS COMPLETED. INTRODUCED MYSELF TO PT PRIMARY RN FOR TODAYS SHIFT. PT A&O LYING BACK IN BED RESTING QUIETLY. PT IS NPO FOR PROCEDURE LATER TODAY AND VERBALIZED UNDERSTANDING. PT IS IRRITATED THIS WAS SUPPOSED TO BE DONE YESTERDAY. PT INCONTINENT OF BOWEL MOVEMENT AND RISK CONTROL MANAGER AND STUDENT CLEANSED PATIENT AND PROVIDED BED CHANGE. PT DENIES ANY CURRENT NEEDS AT THIS TIME. CL IN REACH, BED IN LOWEST, SIDE RAILS X2. WILL CPOC.
--- NOTE | 2017-07-30 09:17 | NUR ---
PT REFUSED ALL HIS MORNING MEDS AND STATES HE WILL GET SICK, WILL NOT AGREE TO TAKE THEM UNTIL AFTER HIS PROCEDURE TODAY. AT BEDSIDE, WILL RESPECT PATIENTS WISHES. NO FURTHER NEEDS AT THIS TIME. CL IN REACH. WILL CPOC.
--- NOTE | 2017-07-30 10:35 | NUR ---
SX CALLED TO PRE-OP PT MEDS GIVEN. PT RESTING AWAITING SX NO FURTHER NEEDS.
--- NOTE | 2017-07-30 12:11 | NUR ---
SX HERE TO TAKE PT NOW. PT READY, NO CURRENT NEEDS.
--- NOTE | 2017-07-30 13:50 | NUR ---
Nutrition Follow Up: Pt is NPO today for hemosplit placement. Pt is eating 77% on a renal diet. +BM 07/28/17. Meds noted including Reglan. Labs reviewed - glucose elevated. Rec Renal ADA diet when diet able to advance. RD following.
--- NOTE | 2017-07-30 15:17 | NUR ---
1439 - [facility] P[facility]ACED TO RT HAND BY ANESTHESIA, PATENT AND SET TO KVO.
--- NOTE | 2017-07-30 15:43 | NUR ---
1519 - Q54MIN BP DEFERRED TO AVOID PLACING STRESS ON NEWLY SITED IV. LAST BP 132/83
--- NOTE | 2017-07-30 16:00 | NUR ---
PT BACK FROM PROCEDURE. DRSG TO R.IJ INTACT WITH SCANT AMOUNT OF BLOOD ON DRSG. PT HAS R.CHEST NEWLY PLACED HEMESPLIT WITH BIOPATCH IN PLACE AND DRSG ADHERED TO SKIN BUT SITE IS BLEEDING AND HAS SOILED GUAZE COVERING IT. REMOVED SOILED DRSG AND CLEANSED SITE AND PLACED NEW DRY GUAZE IN PLACE AND PLACED SAND BAG OVER SITE TO HELP REDUCE BLEEDING. VSS AND BEING MONITERED [id number] PER POST PROCEDURE POLICY. PT DENIES ANY CURRENT PAIN BUT IS REQUESTING FOOD. FOOD TRAY ORDERED. NO FURTHER NEEDS AT THIS TIME. WILL CTM.
--- NOTE | 2017-07-30 16:50 | NUR ---
BRY FROM DIALYSIS IN ROOM TO BEGIN DIALYSIS. PTS DRSG TO R.CHEST STILL BLEEDING BUT HAS LIGHTENED UP A LOT AND SAND BAG STILL IN PLACE. VSS AND STILL BEING MONITERED. NO CURRENT NEEDS. WILL CPOC.
--- NOTE | 2017-07-30 17:30 | NUR ---
PTS R.CHEST HEMESPLIT SOILED AGAIN WITH BLOOD. AT BEDSIDE AND RE DRESSED IT ALONG WITH R.IJ AND KAMALA WRAPPED THE CHEST DRSG. VERBAL ORDER GIVEN TO BE ABLE TO PROVIDE PT WITH PRN PAIN MEDICATION REPEAT FROM PACU ORDER. PT VOICED THANKS AND IS RESTING QUIETLY IN BED RECIEVING DIALYSIS. VSS AND STILL BEING MONITERED. WILL CPOC.
--- NOTE | 2017-07-30 19:13 | NUR ---
SHIFT REPORT GIVEN. PT RESTING QUIETLY RECIEVING DIALYSIS STILL. VSS AND NO CURRENT NEEDS.
--- NOTE | 2017-07-30 22:46 | NUR ---
SITTING UP IN BED, EATTING CRACKERS. IV IN RIGHT HAND IS ATTACHED TO BAGT OF NORMAL SALINE THAT IS NOT INFUSING. REMOVED SAND BAG FROM PATIENTS CHEST BECAUSE THE DRESSING FROM REMOVAL OF HIS RIGHT SIDE IJ IS NO LONGER BLEEDING. KAMALA BANDAGE IS STILL IN PLACE OVER THE DRESSING COVERING NEWLY PLACED HEMOSPLIT. DRESSING IS DRY AND APPEARS THAT THERE IS NO FURTHER BLEEDING. IRINA REQUEST SODA.
[2017-07-31 02:21] VITALS: BP 100/50
--- NOTE | 2017-07-31 03:12 | NUR ---
LOAN REVIEW OFFICER AT BEDSIDE TO OBTAIN VITALS, CALL LIGHT IN REACH. WILL CONTINUE WITH PLAN OF CARE. 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
[2017-07-31 06:19] VITALS: BP 114/58
--- NOTE | 2017-07-31 06:44 | NUR ---
PATIENT JUST HAD A STRING OF 11 VTACH. HE IS TALKATIVE AND CHEERFUL. BED LOW CALL LIGHT IN REACH.
--- NOTE | 2017-07-31 07:30 | NUR ---
AM ROUNDS COMPLETED. PT RESTING QUIETLY IN BED VISITING WITH . RR NONLABORED. PT DENIES ANY CURRENT PAIN OR NEEDS AT THIS TIME. WILL CPOC
[2017-07-31 07:52] VITALS: BP 99/61
--- NOTE | 2017-07-31 11:50 | NUR ---
COMPLETED BED CHANGE AND BATH GIVEN. PT VOICED THANKS AND IS SITTING UP IN BED WAITING ON LUNCH. NO FURTHER NEEDS AT THIS TIME. WILL CPOC.
[2017-07-31 12:30] VITALS: BP 104/57
[2017-07-31] MEDS ORDERED: NYSTATIN ORAL SU5 ML PO (12:41)
[2017-07-31] MEDS ORDERED: XIFAXAN550 MG PO (12:41)
[2017-07-31] MEDS ORDERED: IPRAT-ALBUT 0.5-3 ML UPD (12:42)
[2017-07-31] MEDS ORDERED: CHRONULAC30 ML PO (12:42)
[2017-07-31] MEDS ORDERED: BROVANA15 MCG/2 M INH (12:42)
[2017-07-31] MEDS ORDERED: FLUTICASONE PRO16 GM NASAL (12:43)
[2017-07-31] MEDS ORDERED: PULMICORT0.5 MG/21 UPD (12:43)
[2017-07-31] MEDS ORDERED: TESSALON PERLE100 MG PO (12:43)
[2017-07-31] MEDS ORDERED: TUMS500 MG PO (12:43)
[2017-07-31] MEDS ORDERED: NEPHRO-VITE RX1 TAB PO (12:44)
[2017-07-31] MEDS ORDERED: PREDNISONE10 MG PO (12:45)
[2017-07-31 13:08] LABS: BASOPHILS 0 % (0-2); EOSINOPHILS 0.2 % (0-7); HEMOGLOBIN 7.8 g/dL (13.5-17.5); IMMATURE GRANULOCYTES 0.3 % (0-5); LYMPHOCYTES 1.8 % (15-50); MCH 28.1 pg (26.0-34.0); MCHC 31.2 g/dL (31.0-37.0); MEAN PLATELET VOLUME 12.3 fL (7.4-10.4); MONOCYTES 0.2 % (2-11); NEUTROPHILS 97.5 % (40-80); PLATELET COUNT 85 10x3/uL (130-400); RBC 2.78 10x6/uL (4.20-6.10); RDW 20.9 % (11.5-14.5); WBC 11.2 10x3/uL (4.8-10.8)
[2017-07-31 13:13] LABS: MCV 89.9 fL (80.0-100.0)
[2017-07-31 13:35] LABS: ALBUMIN 2.5 g/dL (3.4-5.0); ANION GAP 12.7 mmol/L (8-16); BILIRUBIN - TOTAL 2.16 mg/dL (0.2-1.3); CALCIUM 7.4 mg/dL (8.5-10.1); CARBON DIOXIDE 27.5 mmol/L (21.0-32.0); CREATININE - SERUM 3.5 mg/dL (0.6-1.3); POTASSIUM - SERUM 4.2 mmol/L (3.5-5.1); PROTEIN - SERUM 5.9 g/dL (6.4-8.2)
--- NOTE | 2017-07-31 14:51 | NUR ---
PT SITTING UP IN BED WATCHING TV WITH AT BEDSIDE. PT DENIES ANY CURRENT PAIN OR NEEDS AND IS HOPING TO BE DISCHARGED LATER TO INPATIENT REHAB. WILL CPOC.
--- NOTE | 2017-07-31 15:15 | NUR ---
Rehab Note- The patient is to be admitted today to [facility] Acute Inpatient Rehab. Thank you for this referral! Tameka Li RN Clinical Liaison, [facility] Rehab
--- NOTE | 2017-07-31 16:50 | NUR ---
FSBS 347 PT REC'D 12 UNITS OF SS INSULIN. PT SITTING UP IN BED STILL WAITING FOR A REHAB BED CALLED REHAB AND THEY STATE 1110. PT WOULD LIKE TO EAT DINNER HERE THEN WILL BE DISCHARGED TO INPATIENT REHAB. PT DENIES ANY CURRENT NEEDS. WILL CPOC.
--- NOTE | 2017-07-31 17:30 | NUR ---
D/C PTS R.HAND PIV WITH CATHETER TIP FULLY INTACT. PT SITTING UP IN BED EATING DINNER. DISCHARGE TEACHING PROVIDED AND PAPERS SIGNED. PT WILL BE TRANSPORTED TO REHAB SHORTLY. NO FURTHER NEEDS AT THIS TIME.
--- NOTE | 2017-07-31 18:21 | NUR ---
PT LEAVING FOR REHAB NOW. NO FURTHER NEEDS.
--- NOTE | 2017-08-12 12:19 | OP ---
PATIENT NAME: NENA BHATTI MEDICAL RECORD: [id number] :54 LOCATION:D.M2 D.2130 ADMISSION DATE:07/01/17 SURGEON: TARIK NAVARRETE MD DATE OF OPERATION: 07/16/2017 PREOPERATIVE DIAGNOSES: 1. Acute renal failure. 2. Peripheral vascular disease. 3. Hegyw-qg-nszqjhf liver failure. 4. Chronic coagulopathy secondary to liver disease. POSTOPERATIVE DIAGNOSES: 1. Acute renal failure. 1. Peripheral vascular disease. 3. Jnxhd-wl-nmraieg liver failure. 4. Chronic coagulopathy secondary to liver disease. PROCEDURE: Right IJ Trialysis catheter placement. SURGEON: Tarik Navarrete MD REPORT OF PROCEDURE: The patient's right neck was prepped and draped in sterile fashion including the indwelling right internal jugular triple-lumen central venous line, the catheter was cut and wire was advanced through the catheter. The indwelling catheter was then removed and the dilator was placed over the wire followed by the Trialysis catheter. The catheter aspirated nonpulsatile dark blood and flushed easily in all 3 ports. This was sutured into place with 4-0 nylons and dressed appropriately. COMPLICATIONS: None. CONDITION: Stable. ANESTHESIA: Local. BLOOD LOSS: 30 mL. Procedure done at the bedside. TRANSINT:[id number] Voice Confirmation ID: [id number] DOCUMENT ID: [id number] TARIK NAVARRETE MD at 1219 CC: [id number] DICTATION DATE: 07/16/17 1632 BUDGET COUNSELOR: 07/16/17 1732 DIS IN 07/31/17 [facility] [address] [place] [address]
== END 2017-07-31 18:23 | DRG 867 ==
LOC: OBSVTIME → D.ER 16:41 → D.OPS 16:41 → OBSVTIME 18:52 → D.M2 18:52 → D.ER 18:52 → D.MS 20:36 → D.M2 20:36 → D.ICU 20:36 → D.M2 20:36 → D.ICU 07-04 12:06 → D.M2 07-04 12:06 → D.ICU 07-08 19:53 → D.MS 07-08 19:53 → D.SDCHOLD 07-10 13:58 → D.MS 07-10 13:58 → D.SDCHOLD 07-10 13:59 → D.MS 07-10 13:59 → D.ICU 07-22 20:13 → D.MS 07-22 20:13 → D.ICU 07-22 20:13 → D.M2 07-25 13:59 → D.ICU 07-25 13:59 → D.M2 07-25 13:59 → EDSTATUS 07-29 14:00 → D.M2 07-31 18:23
PROVIDERS: Emergency Medicine; Family Medicine; Family Medicine Adult Medicine; Internal Medicine; Internal Medicine Gastroenterology; Internal Medicine Hematology & Oncology; Internal Medicine Nephrology; Physician Assistant Medical; Student in an Organized Health Care Education/Training Program; Surgery; ADMIT Family Medicine
PROC: 02HV33Z Insertion of Infusion Device into Superior Vena Cava, Percutaneous Approach (ICD-10-PCS; principal; 2017-07-06)
PROC: B548ZZA Ultrasonography of Superior Vena Cava, Guidance (ICD-10-PCS; 2017-07-06)
PROC: 02HV33Z Insertion of Infusion Device into Superior Vena Cava, Percutaneous Approach (ICD-10-PCS; 2017-07-16)
PROC: 02HV33Z Insertion of Infusion Device into Superior Vena Cava, Percutaneous Approach (ICD-10-PCS; 2017-07-30)
PROC: B5181ZA Fluoroscopy of Superior Vena Cava using Low Osmolar Contrast, Guidance (ICD-10-PCS; 2017-07-30)
DX: A77.0 Spotted fever due to Rickettsia rickettsii (principal); R65.20 Severe sepsis without septic shock; K72.00 Acute and subacute hepatic failure without coma; N18.6 End stage renal disease; J69.0 Pneumonitis due to inhalation of food and vomit; J96.21 Acute and chronic respiratory failure with hypoxia; N17.9 Acute kidney failure, unspecified; I13.0 Hypertensive heart and chronic kidney disease with heart failure and stage 1 through stage 4 chronic kidney disease, or unspecified chronic kidney disease; I50.22 Chronic systolic (congestive) heart failure; N39.0 Urinary tract infection, site not specified; T83.511A Infection and inflammatory reaction due to indwelling urethral catheter, initial encounter; I42.9 Cardiomyopathy, unspecified; J44.1 Chronic obstructive pulmonary disease with (acute) exacerbation; K76.6 Portal hypertension; E11.22 Type 2 diabetes mellitus with diabetic chronic kidney disease; E11.40 Type 2 diabetes mellitus with diabetic neuropathy, unspecified; E86.0 Dehydration; E87.5 Hyperkalemia; J44.9 Chronic obstructive pulmonary disease, unspecified; I25.10 Atherosclerotic heart disease of native coronary artery without angina pectoris; D63.1 Anemia in chronic kidney disease; I48.2 Chronic atrial fibrillation; B96.20 Unspecified Escherichia coli [E. coli] as the cause of diseases classified elsewhere; K74.60 Unspecified cirrhosis of liver; K80.20 Calculus of gallbladder without cholecystitis without obstruction; Z89.612 Acquired absence of left leg above knee; Z89.611 Acquired absence of right leg above knee; Z95.0 Presence of cardiac pacemaker; Z95.1 Presence of aortocoronary bypass graft; Z95.5 Presence of coronary angioplasty implant and graft; Y82.9 Unspecified medical devices associated with adverse incidents

== ENCOUNTER 2017-07-31 18:30 | Inpatient (IN) | payer MEDICARE ==
[~2017-07-31] VITALS: Ht 124.5 cm; Wt 88.9 kg
[~2017-07-31 18:30] MED LIST changes: +BACTRIM DS TABL1 TAB PO; +BROVANA15 MCG/2 M INH; +NEPHRO-VITE RX1 TAB PO; +NYSTATIN ORAL SU5 ML PO; +PREDNISONE10 MG PO; +PULMICORT0.5 MG/21 UPD; +TESSALON PERLE100 MG PO; +XIFAXAN550 MG PO
--- NOTE | 2017-07-31 19:05 | NUR ---
BEDSIDE SHIFT REPORTING COMPLETE. GAVE PATIENT CUP OF FRESH ICE WATER.
[2017-07-31 19:36] VITALS: BP 110/61; BMI 57.5
--- NOTE | 2017-07-31 20:05 | NUR ---
CONTINUES IN BED, AWAKE. WATCHING TV. NO COMPLAINTS AT THIS TIME.
[2017-07-31 22:00] VITALS: BP 110/61
--- NOTE | 2017-07-31 22:00 | NUR ---
SCHEDULED PO MEDS GIVEN. FSBS 216. GAVE PATIENT 8 UNITS REGULAR SLIDING SCALE INSULIN SC IN RIGHT UPPER ARM. PROCEEDING WITH ADMISSION ASSESSMENT AND HISTORY.
--- NOTE | 2017-07-31 23:00 | NUR ---
ADMISSION ASSESSMENT AND HISTORY COMPLETE. PATIENT DENIES CURRENT NEEDS.
--- NOTE | 2017-08-01 | NUR ---
RESTING QUIETLY, EYES CLOSED. WAS ASSISTED TO TURN TO LEFT SIDE FOR PRESSURE RELIEF TO BUTTOCKS ABOUT 15 MINUTES AGO.
--- NOTE | 2017-08-01 02:10 | NUR ---
IN BED, EYES CLOSED. LYING ON LEFT SIDE. APPEARS COMFORTABLE.
--- NOTE | 2017-08-01 04:45 | NUR ---
CONTINUES ON LEFT SIDE. O2 PER N/C @ 2L FLOW. APPEARS COMFORTABLE. EMPTIED 400ML DARK URINE (NO ODOR) FROM SUPRAPUBIC CATHETER DRAINAGE BAG.
[2017-08-01 06:17] VITALS: BP 101/53
--- NOTE | 2017-08-01 06:20 | NUR ---
FSBS 141. GAVE PATIENT SCHEDULED PO MEDS. MILD BLOODY DRAINAGE NOTED FROM UNDER NEW HEMOSPLIT DRESSING. CHANGED GOWN AFTER CLEANING SITE AND APPLYING THICK 4X4 PRESSURE DRESSING.
[2017-08-01 06:42] LABS: HEMATOCRIT 23.2 % (42.0-54.0); LYMPHOCYTES 2.7 % (15-50); MCH 28.6 pg (26.0-34.0); MCHC 32.3 g/dL (31.0-37.0); MCV 88.5 fL (80.0-100.0); MEAN PLATELET VOLUME 10.6 fL (7.4-10.4); RBC 2.62 10x6/uL (4.20-6.10); RDW 21.8 % (11.5-14.5)
[2017-08-01 06:57] LABS: ANION GAP 13.8 mmol/L (8-16); CALCIUM 7.3 mg/dL (8.5-10.1); CARBON DIOXIDE 27.7 mmol/L (21.0-32.0); POTASSIUM - SERUM 4.5 mmol/L (3.5-5.1)
[2017-08-01 07:01] LABS: PLATELET COUNT 62 10x3/uL (130-400); WBC 7.8 10x3/uL (4.8-10.8)
[2017-08-01 07:02] LABS: HEMOGLOBIN 7.5 g/dL (13.5-17.5)
--- NOTE | 2017-08-01 08:07 | NUR ---
PATIENT CONTINUES IN CONTACT ISOLATION. ALERT/ORIENT X4. USING CALL LIGHT FOR NEEDS. CALL LIGHT WITHIN REACH
--- NOTE | 2017-08-01 09:24 | NUR ---
ADVID NYE APN PAGED IN REGARDS TO PATIENTS ADMISSION YESTERDAY AND H AND H LEVEL
--- NOTE | 2017-08-01 10:00 | NUR ---
PATIENT IN REHAB ROOM. WORKING WITH PHYSICAL THERAPIST. ISOLATION PRECAUSION MAINTAINED
--- NOTE | 2017-08-01 11:35 | NUR ---
GLUCOSE LEVEL 241. EIGHT UNITS OF SLIDING SCALE INSULIN GIVEN
[2017-08-01 12:00] VITALS: BP 99/54
--- NOTE | 2017-08-01 13:15 | NUR ---
DR CASTELLANOS INTO SEE PATIENT.
[2017-08-01 13:20] VITALS: Ht 124.5 cm; Wt 88.9 kg
--- NOTE | 2017-08-01 13:46 | NUR ---
PATIENT ADITTED TO REHAB FROM ACUTE FLOOR. PATIENT IS A NEW HD PATIENT. DR. ERICKSON IS HIS PCP, [facility] IS HIS PHARMACY. DME AT HOME: WHEELCHAIR, , BEDSIDE COMMODE, HOSPITAL BED, ERNIE LIFT, NEBULIZER, O2, SHOWER CHAIR AND AN ELECTRIC WHEELCHAIR. PATIENT HAS BEEN IN [facility] AND WOULD LIKE TO RETURN THERE IS POSSIBLE AT DISCHARGE. WILL CONTINUE TO FOLLOW WITH PATIENT.
--- NOTE | 2017-08-01 15:45 | NUR ---
ENERGY CONSULTANT HERE TO GIVE DIALY TX. TWO UNITS OF PRBC TO BE GIVEN WITH DIAYSIS.
[2017-08-01 18:01] VITALS: BP 108/65
--- NOTE | 2017-08-01 19:20 | NUR ---
PT. IN BED WITH HOB UP FOR COMFORT AND IS RECEIVING HIS DIALYSIS. JESUS CAMERON RN FROM DIALYSIS SAYS SHE IS JUST ABOUT FINISHED. PT. DENIES ANY NEEDS AT THIS TIME. IS PRESENT IN ROOM. CALL LIGHT WITHIN REACH. SUPRAPUBIC CATHETER TO BSD WITHOUT PROBLEMS.
[2017-08-01 20:58] VITALS: BP 119/66
--- NOTE | 2017-08-01 23:08 | NUR ---
PT. IN BED WITH HOB UP FOR COMFORT WITH EYES CLOSED AND RESP. EVEN. URINE DRAINAGE BAG TO BSD WITHOUT PROBLEMS. CALL LIGHT WITHIN REACH.
[2017-08-02 00:55] VITALS: BP 119/65
--- NOTE | 2017-08-02 03:07 | NUR ---
PT. IN BED WITH HOB UP FOR COMFORT WITH EYES CLOSED AND RESP. EVEN. URINARY DRAINAGE BAG TO BSD WITHOUT PROBLEMS. CALL LIGHT WITHIN REACH.
[2017-08-02 06:30] VITALS: BP 124/76
--- NOTE | 2017-08-02 07:40 | NUR ---
SITTING UP IN BED SETUP BREAKFAST TRAY. ALERT AND ORIENTED X4. DENIES ANY PAIN OR NEEDS. CALL LIGHT WITHIN REACH, BED LOW AND SR X3. WILL CONTINUE TO MONITOR
--- NOTE | 2017-08-02 08:00 | NUR ---
RESTING QUIETLY IN BED.
--- NOTE | 2017-08-02 10:14 | NUR ---
IN THERAPY GYM WITH [facility]. NO S.SX OF ACUTE DISTRESS NOTED. DENIES ANY NEEDS. WILL CONTINUE TO MONITOR
[2017-08-02 11:56] VITALS: BP 127/50
--- NOTE | 2017-08-02 12:57 | NUR ---
SITTING UP IN ELECTRIC W/C WATCHING FOOTBALL. DENIES ANY NEEDS OR PAIN. CALL LIGHT AND PERSONAL ITEMS WITHIN REACH. WILL CONTINUE TO MONITOR
--- NOTE | 2017-08-02 14:42 | NUR ---
SITTING UP IN ELECTRIC CHAIR WATCHING FOOTBALL. DENIES ANY NEEDS OR PAIN. NO S/SX OF ACUTE DISTRESS NOTED. CALL LIGHT AND PERSONAL ITEMS WITHIN REACH. WILL CONTINUE TO MONITOR
[2017-08-02 18:44] VITALS: BP 122/67
[2017-08-02 19:00] VITALS: BP 122/70
--- NOTE | 2017-08-02 19:20 | NUR ---
PT. SITTING UP IN HIS ELECTRIC W/C AND IS STILL WAITING FOR THE OCCUPATIONAL THERAPIST TO ARRIVE. ASSESSMENT COMPLETED. PT. STATES THAT IF HE DOESN'T GET HERE SOON HE WILL ASK FOR THE NURSING STAFF TO TRANSFER HIM BACK TO BED. CALL LIGHT WITHIN REACH FOR ANY ASSISTANCE.
--- NOTE | 2017-08-02 23:08 | NUR ---
PT. IN BED WITH HOB UP FOR COMFORT AND LYING ON LEFT SIDE WITH PILLOW AT BACK FOR SUPPORT TO OFFLOAD BUTTOCK. EYES CLOSED AND RESP. EVEN. SUPERPUBIC CATHETER DRAINING INTO BSD WITHOUT PROBLEMS. CALL LIGHT WITHIN REACH. PT. REQUESTED O2 BE PLACED BACK ON AFTER O.T. FAILED TO REPLACE IT EARILER IN SHIFT. NO S/S DISTRESS OBSERVED.
[2017-08-03 00:40] VITALS: BP 133/62
--- NOTE | 2017-08-03 03:08 | NUR ---
PT. IN BED WITH HOB UP SLIGHTLY FOR COMFORT. EYES CLOSED AND RESP. EVEN. SINGER TO BSD WITHOUT PROBLEMS AND HIS O2 REMAINS AT 2L/MIN VIA N/C WITHOUT ANY S/S DISTRESS OBSERVED. CALL LIGHT WITHIN REACH.
[2017-08-03 06:47] VITALS: BP 143/70
--- NOTE | 2017-08-03 08:05 | NUR ---
PATIENT IN ISOLATION FOR VRE IN URINE. SUPER PUBIC CATH. SCANT AMOUNT OF URINE IN F/C BAG. PATIENT IS A DIALYSIS PATIENT M-W-FR. DIALYSIS TREATMENT. ALERT/ORIENT X4. USING CALL LIGHT FOR NEEDS. CALL LIGHT WITHIN REACH. TELEMETRY IN PLACE. OXYGEN ON AT 2L PER N/C
[2017-08-03 08:27] VITALS: BP 122/67
[2017-08-03 13:10] VITALS: BP 136/72
--- NOTE | 2017-08-03 19:30 | NUR ---
PT. IN BED WITH HOB UP FOR COMFORT AND IS WATCHING TV AND FINISHING HER DINNER. ASSESSMENT COMPLETED. NO VOICED NEEDS AND HER CALL LIGHT IS WITHIN REACH.
--- NOTE | 2017-08-03 19:30 | NUR ---
PT. IN BED WITH HOB FOR COMFORT AND IS WATCHING TV. ASSESSMENT COMPLETED. NO VOICED NEEDS AT THIS TIME AND HIS CALL LIGHT IS WITHIN REACH. SINGER TO BSD WITHOUT PROBLEMS.
[2017-08-03 19:50] VITALS: BP 156/94
--- NOTE | 2017-08-03 23:20 | NUR ---
PT. IN BED WITH HOB UP FOR COMFORT AND IS STILL WATCHING TV. NO VOICED NEEDS AT THIS TIME. SINGER TO BSD WITHOUT PROBLEMS AND HIS CALL LIGHT IS WITHIN REACH.
[2017-08-04] VITALS (7 sets, daily range): BP systolic 100–125; BP diastolic 59–78
--- NOTE | 2017-08-04 03:15 | NUR ---
PT. IN BED WITH HOB ALMOST FLAT. SINGER TO BSD WITHOUT PROBLEMS. EYES CLOSED AND RESP. EVEN. CALL LIGHT WITHIN REACH.
--- NOTE | 2017-08-04 04:40 | NUR ---
WAS INFORMED BY MONUMENT SETTER THAT PT. HAD BLOOD ON HIS SCRUB TOP. UPON ASSESSING SITUATION FOUND THAT PT'S RT. UPPER CHEST WALL DIALYSIS ACCESS SITE PRESSURE DRESSING WAS SATURATED WITH BLOOD AND IT WAS ALSO RUNNING DOWN PT'S RIGHT SIDE ONTO HIS CLOTHING AND BED LINENS. REMOVED OLD PRESSURE DRESSING, CLEANED PT'S SKIN OF ALL VISIBLE BLOODY DRAINAGE. CALLED GENERAL WAREHOUSE WORKER, DANYELLE MCFARLAND AND REPORTED TO HER THAT WHAT I WAS SEEING WAS A POOL OF BLOOD UNDER CLEAR DRESSING THAT WAS COVERING BIODISK/INSERTION SITE OF HEMOSPLIT. WAS INSTRUCTED NOT TO REMOVE THIS PART OF DRESSING AND TO APPLY A PRESSURE DRESSING OVER IT, LIKE THE ONE I HAD REMOVED. INFORMED PT. OF PROCEDURE AND HE AGREED. AFTER TURNING PT. ONTO HIS SIDE TO REMOVE SCRUB TOP, FOUND THAT PT. HAD HAD AN INCONTINENT BM. CLEANED PT. AND CHANGED LINENS. CLEAN SCRUB TOP APPLIED AND POSITIONED PT. TO COMFORT WITH CALL LIGHT WITHIN REACH. PT. TOLERATED ALL PROCEDURES WITH MINIMAL DISCOMFORT DUE TO HIS DISEASE PROCESSES.
--- NOTE | 2017-08-04 06:30 | NUR ---
ASSESSED PRESSURE DRESSING TO RT. UPPER CHEST WALL AND NO VISIBLE DRAINAGE SEEN. GAVE PT. MARKEL ROSA AT HIS REQUEST FOR HIS FSBS OF 69.
[2017-08-04 06:56] LABS: BASOPHILS 0 % (0-2); EOSINOPHILS 0 % (0-7); HEMATOCRIT 27.6 % (42.0-54.0); HEMOGLOBIN 9.2 g/dL (13.5-17.5); IMMATURE GRANULOCYTES 0.2 % (0-5); MCH 29.5 pg (26.0-34.0); MCHC 33.3 g/dL (31.0-37.0); MCV 88.5 fL (80.0-100.0); MEAN PLATELET VOLUME 11.7 fL (7.4-10.4); MONOCYTES 3.4 % (2-11); NEUTROPHILS 92.4 % (40-80); RBC 3.12 10x6/uL (4.20-6.10); RDW 18.6 % (11.5-14.5); WBC 12.4 10x3/uL (4.8-10.8)
[2017-08-04 06:57] LABS: ANION GAP 10.8 mmol/L (8-16); CALCIUM 7.4 mg/dL (8.5-10.1); CARBON DIOXIDE 30.4 mmol/L (21.0-32.0); CREATININE - SERUM 4.3 mg/dL (0.6-1.3); POTASSIUM - SERUM 4.2 mmol/L (3.5-5.1)
[2017-08-04 07:22] LABS: PLATELET COUNT 86 10x3/uL (130-400)
--- NOTE | 2017-08-04 08:00 | NUR ---
AM ROUNDING: PATIENT REMAINS IN CONTACT ISOLATION/URINE. SUPER PUBIC CATH INTACT. OXYGEN ON AT 2L PER N/C. ALERT/ORIENT X4. BED ALARM ON. CALL LIGHT WITHIN REACH. VOICES NO NEEDS AT THIS TIME.
--- NOTE | 2017-08-04 10:43 | NUR ---
PATIENT IN REHAB ROOM. WORKING WITH PHYSICAL THERAIST. DENIES ANY PAIN/DISC AT THIS TIME.
--- NOTE | 2017-08-04 11:30 | NUR ---
GLUCOSE LEVEL 228. EIGHT UNITS OF SLIDING SCALE INSULIN GIVEN PER ORDER.
--- NOTE | 2017-08-04 15:11 | NUR ---
PATIENT PUT BACK TO BED BY PHYSICAL THERAPY. TOTAL ASST WITH ERNIE LIFT FROM WHEELCHAIR INTO BED.
--- NOTE | 2017-08-04 16:21 | NUR ---
CALLED DIALYSIS CLINIC AND TALKED WITH EULALIO. STATED THAT THEY WERE STILL COMING TO GIVE DIALYSIS TREATMENT TODAY
--- NOTE | 2017-08-04 16:30 | NUR ---
PRN ULTRUM GIVEN FOR BACK PAIN PER PATIENTS REQUEST. GLUCOSE LEVEL 216. EIGHT UNITS OF SLIDING SCALE INSULIN GIVEN
--- NOTE | 2017-08-04 17:18 | NUR ---
PEDIATRIC SPEECH LANGUAGE PATHOLOGIST IN ROOM FOR DIALYSIS TX
--- NOTE | 2017-08-04 20:00 | NUR ---
PT IN BED WITH HOB UP FOR COMFORT. RECEIVING DIALYSIS. 02 @ 2L PRN. FSBS ACHS. TELEMETRY. CONTACT ISOLATION FOR VRE IN URINE. RESERVE LEFT ARM. SUPRAPUBIC CATHETER. RIGHT CHEST HEMOSPLIT. BED IN LOWEST POSIITON AND CALL LIGHT WITHIN REACH.
--- NOTE | 2017-08-04 23:07 | NUR ---
REMAINS IN ISOLATION RELATED TO VRE IN URINE. SUPERPUBIC CATH INTACT WITH CLEAR YELLOW URINE DRAINING TO BED SIDE DRAINAGE SYSTEM. RECIEVED DIALYSIS IN ROOM THIS SHIFT. LEFT ARM RESERVED D/T FISTULA. BILATERAL BKA. RIGHT CHEST HEMOPSPLIT. REQUIRES TOTAL CARE. CALL LIGHT AND OVERBED TABLE IN REACH.
--- NOTE | 2017-08-05 | NUR ---
PT IN BED WITH HOB UP FOR COMFORT. EYES CLOSED. CHEST RISING AND FALLING. BED IN LOWEST POSITION AND CALL LIGHT WITHIN REACH.
--- NOTE | 2017-08-05 04:00 | NUR ---
PT IN BED WITH HOB UP FOR COMFORT. EYES CLOSED. RESPIRATIONS EVEN AND UNLABORED. BED IN LOWEST POSITION AND CALL LIGHT WITHIN REACH.
[2017-08-05 05:58] VITALS: BP 116/74
--- NOTE | 2017-08-05 07:12 | NUR ---
INTRODUCEDS SELF TO PT, PT STATES NO NEEDS AT THIS TIME, WILL CONTINUE TO MONITOR, CALL LIGHT WITHIN REACH.
--- NOTE | 2017-08-05 08:00 | NUR ---
EATING BREAKFAST IN ROOM. DENIES NEEDS. CALL LIGHT IN REACH
--- NOTE | 2017-08-05 08:40 | NUR ---
MORNING MEDICATION GIVEN, PT TOLERATED WELL, PT REQUESTED SHIRT TO BE CHANGED WITH MOD ASSISTANCE, WILL CONTINUE TO MONITOR, CALL LIGHT WITHIN REACH.
--- NOTE | 2017-08-05 10:00 | NUR ---
Nutrition Follow Up: Pt is eating 89% meal avg on a renal ADA diet. +BM 08/04/17. Labs reviewed - Glucose elevated. Meds noted including Prednisone. Rec continue current diet. RD following.
--- NOTE | 2017-08-05 10:40 | NUR ---
PT UP WITH PT. WILL CONTINUE TO MONITOR.
[2017-08-05 11:56] VITALS: BP 113/62
--- NOTE | 2017-08-05 12:25 | NUR ---
PT UP IN CHAIR EATING LUNCH, PT STATES NO NEEDS AT THIS TIME, WILL CONTINUE TO MONITOR, CALL LIGHT WITHIN REACH.
--- NOTE | 2017-08-05 12:59 | NUR ---
PT UP IN CHAIR WATCHING TV, NO NEEDS NOTED AT THIS TIME, WILL CONTINUE TO MONITOR, CALL LIGHT WITHIN REACH.
--- NOTE | 2017-08-05 14:29 | NUR ---
PT UP IN CHAIR WATCHING TV, PT STATES NO NEEDS AT THIS TIME, WILL CONTINUE TO MONITOR, CALL LIGHT WITHIN REACH.
--- NOTE | 2017-08-05 15:48 | NUR ---
DRSG CHANGED PER ANITRA BASSETT. PRESSURE DRSG APPLIED, PT INC OF BOWEL, PT TURN WITH MINIMAL TO MOD ASSISTANCE, PT TOLERATED WELL, WILL CONTINUE TO MONITOR, PT WITH PHYSICAL THERAPY.
[2017-08-05 18:05] VITALS: BP 136/73
--- NOTE | 2017-08-05 18:32 | NUR ---
PT BLEEDING AROUND RIGHT CHEST HEMOSPLIT PRESSURE DRESSING APPLIED WILL CONTINUE TO MONITER
--- NOTE | 2017-08-05 19:05 | NUR ---
BEDSIDE SHIFT REPORT COMPLETE. PATIENT DENIES CURRENT NEEDS. IN BED WITH 1L NS BAG OVER PRESSURE DRESSING TO RIGHT CHEST HEMOSPLIT CATH SITE WHICH HAS CONTINUED TO OOZE SINCE PRIOR TO ADMISSIOIN TO UNIT. NETWORK MANAGER AND DR. JUAREZ ARE AWARE.
--- NOTE | 2017-08-05 20:00 | NUR ---
IN BED, AWAKE. ASK ME TO DIM HIS LIGHTS. REMAINS AWAKE, WATCHING TV.
--- NOTE | 2017-08-05 21:40 | NUR ---
ASSESSMENT AND HS MEDS COMPLETE. C/O PAIN LEVEL OF 5/10 IN BILAT THIGHS. GAVE HIM ULTRAM 50MG PO.
--- NOTE | 2017-08-05 22:30 | NUR ---
PATIENT JUST COMPLETED BEDBATH WITH MAILING MACHINE OPERATOR ASSIST. LINENS CHANGED. PRESSURE DRESSING REMAINS INTACT.
--- NOTE | 2017-08-05 23:35 | NUR ---
RESTING IN BED, EYES CLOSED. APPEARS COMFORTABLE.
[2017-08-06 00:12] VITALS: BP 120/64
--- NOTE | 2017-08-06 02:05 | NUR ---
RESTING IN BED, EYES CLOSED. APPEARS COMFORTABLE.
--- NOTE | 2017-08-06 04:35 | NUR ---
IN BED, AWAKE. EMPTIED 200ML DARK URINE FROM SUPRAPUBIC CATHETER BAG. SAYS HE HAD DIFFICULTY SLEEPING SOUNDLY TONIGHT.
[2017-08-06 06:35] VITALS: BP 118/73
--- NOTE | 2017-08-06 06:35 | NUR ---
FSBS 103. CHANGED SCRUB TOP DUE TO STAINING WITH BLOOD. PRESSURE DRESSING REMAINS C/D/I. BLOOD MUST HAVE ORIGINATED FROM ABRASION ON BACK OF LEFT HAND WHICH IS NOW DRY AND LIGHTLY SCABBED.
--- NOTE | 2017-08-06 09:05 | NUR ---
PT AM MEDS ADMINISTERED. PT DENIES NEEDS AT THIS TIME. WCTM.
--- NOTE | 2017-08-06 11:55 | NUR ---
PT SITTING UP IN CHAIR WAITING FOR LUNCH. FSBS 221. 8 UNITS GIVEN. WCTM.
[2017-08-06 12:27] VITALS: BP 96/69
--- NOTE | 2017-08-06 15:16 | NUR ---
CARE TEAM MEETING: PATIENT ATTENDED MEETING. HIS QUESTIONS WERE ADDRESSED. WILL CONTINUE IN THERAPY AND MAY NEED A REFERRAL TO A SNF. TENATIVE DISCHARGE DATE IS 08/18/17. WILL CONTINUE TO FOLLOW WITH PATIENT.
--- NOTE | 2017-08-06 19:03 | NUR ---
PT ASSISTED BACK INTO BED WITH ERNIE AND 3 NURSE ASSIST. PT WC PLUGGED IN TO CHARGE. PT DENIES FURTHER NEEDS. WCTM.
--- NOTE | 2017-08-06 19:30 | NUR ---
BEDSIDE SHIFT REPORT COMPLETE. DENIES NEEDS.
--- NOTE | 2017-08-06 20:10 | NUR ---
CALLED MARCIAL FROM DIALYSIS REGARDING PATIENT'S DIALYSIS TODAY. MARCIAL INFORMED ME THAT DUE TO UNFORESEEN CIRCUMSTANCES, MR. BHATTI WILL DIALYZE TOMORROW. INFORMED PATIENT.
--- NOTE | 2017-08-06 21:40 | NUR ---
IN BED, AWAKE. WAS CLEANSED AND CHANGED FROM A LARGE VOLUME INCONTINENT BM. CALMOSEPTINE WAS APPLIED TO BUTTOCKS.
--- NOTE | 2017-08-06 22:45 | NUR ---
ASSESSMENT AND HS MEDS COMPLETE. FSBS 162. PATIENT REFUSED SLIDING SCALE INSULIN OUT OF CONCERN THAT DESPITE HS SNACK THAT HIS BLOOD SUGAR WILL BOTTOM OVERNIGHT. GAVE PATIENT ULTRAM 50MG PO FOR PAIN LEVEL OF 5/10 IN LEFT THIGH AND LEFT HAND.
[2017-08-06 23:50] VITALS: BP 128/81
--- NOTE | 2017-08-06 23:50 | NUR ---
ASSISTED PATIENT TO TURN TO LEFT SIDELYING POSITION WITH PILLOW TO HELP HIM MAINTAIN IT.
--- NOTE | 2017-08-07 02:25 | NUR ---
PATIENT AWAKE. DENIES NEEDS.
--- NOTE | 2017-08-07 04:00 | NUR ---
RESTING IN BED ON LEFT SIDE. NO DISTRESS EVIDENT IN QUIET UNLABORED RESP. PATTERN.
[2017-08-07 05:00] VITALS: BP 112/71
--- NOTE | 2017-08-07 05:00 | NUR ---
CALLED FOR ASSIST BACK ONTO BACK FROM LEFT SIDE. CLEANSED AND CHANGED HIM FROM MEDIUM VOLUME SOFT FORMED BM INCONTINENCE OF WHICH HE WAS UNAWARE. APPLIED CALMOSEPTINE LIBERALLY TO AREAS OF EXCORIATION. VS TAKEN. PATIENT DENIES FURTHER NEEDS.
--- NOTE | 2017-08-07 06:30 | NUR ---
FSBS 116. GAVE PATIENT SCHEDULED PO PROTONIX. DENIES NEEDS.
--- NOTE | 2017-08-07 09:52 | NUR ---
PT AM MEDS ADMINISTERED. PT REQ AND REC'D PRN PAIN MEDICATION AT THIS TIME. WCTM.
--- NOTE | 2017-08-07 12:45 | NUR ---
PT ASSISTED BACK INTO BED VIA ERNIE SO THAT HE MAY RECEIVE DIALYSIS. WCTM.
[2017-08-07 12:57] VITALS: BP 120/64
--- NOTE | 2017-08-07 19:20 | NUR ---
BEDSIDE SHIFT REPORT COMPLETE. PATIENT AWAKE, IN BED. DENIES NEEDS.
--- NOTE | 2017-08-07 20:10 | NUR ---
REMAINS IN BED, AWAKE. WATCHING TV. DENIES NEEDS.
--- NOTE | 2017-08-07 22:25 | NUR ---
FSBS 146. ASSESSMENT AND HS MEDS COMPLETE. GAVE PATIENT ULTRAM 50MG PO FOR PAIN LEVEL OF 5/10 IN LEFT THIGH AND LEFT HAND.
[2017-08-07 23:00] VITALS: BP 114/63
--- NOTE | 2017-08-07 23:45 | NUR ---
IN BED, EYES CLOSED. HOB UP 15 DEGREES. APPEARS COMFORTABLE.
--- NOTE | 2017-08-08 02:35 | NUR ---
NAVEEN IN BED, RESTING QUIETLY, EYES CLOSED.
--- NOTE | 2017-08-08 04:30 | NUR ---
PATIENT AWAKE. EMPTIED 200ML DARK URINE FROM BEDSIDE CATHETER BAG.
--- NOTE | 2017-08-08 05:00 | NUR ---
MONITORING STATION REPORT SINGLE RUN OF 11 V-TACH. SPOKE WITH PATIENT WHO IS ASYMPTOMATIC--NO SOB OR OTHER SENSATION. SAYS HE, "FEELS FINE." WILL PASS THIS TO DR. JUAREZ THROUGH DAY SHIFT NURSE.
[2017-08-08 05:50] VITALS: BP 111/64
--- NOTE | 2017-08-08 05:50 | NUR ---
GAVE PATIENT SCHEDULED PROTONIX. FSBS 119. DENIES NEEDS.
[2017-08-08 06:35] LABS: BASOPHILS 0 % (0-2); EOSINOPHILS 0.2 % (0-7); HEMATOCRIT 27.8 % (42.0-54.0); IMMATURE GRANULOCYTES 0.4 % (0-5); MCH 29.4 pg (26.0-34.0); MCHC 32.4 g/dL (31.0-37.0); MCV 90.8 fL (80.0-100.0); MONOCYTES 2.7 % (2-11); NEUTROPHILS 88.7 % (40-80); PLATELET COUNT 79 10x3/uL (130-400); RBC 3.06 10x6/uL (4.20-6.10); RDW 19.5 % (11.5-14.5); WBC 5.6 10x3/uL (4.8-10.8)
[2017-08-08 06:47] LABS: ANION GAP 14.6 mmol/L (8-16); CALCIUM 7.5 mg/dL (8.5-10.1); CARBON DIOXIDE 29.7 mmol/L (21.0-32.0); CREATININE - SERUM 3.3 mg/dL (0.6-1.3); POTASSIUM - SERUM 4.3 mmol/L (3.5-5.1)
[2017-08-08 11:44] VITALS: BP 98/59
--- NOTE | 2017-08-08 18:22 | NUR ---
PT RESTING IN BED WITH EYES OPEN CALL LIGHT IN REACH WILL MONITER
--- NOTE | 2017-08-08 19:00 | NUR ---
DROPPED BY PATIENT'S ROOM PRIOR TO SHIFT REPORT TO DELIVER HIS MENU. FOUND PATIENT UNAWARE HE HAD A LARGE AMOUNT OF WET BLOODY DRAINAGE IN HIS SCRUB TOP FROM HIS RIGHT CHEST HEMOSPLIT SITE. REMOVED SCRUB TOP AND WIPED UP SITE WITH STERILE GAUZE PADS. APPLIED THICK PAD OF 4X4'S SECURED WITH MEDIPORE TAPE A PRESSURE DRESSING ATOP HIS CVL DRESSING WHICH REMAINS IN PLACE.
--- NOTE | 2017-08-08 21:00 | NUR ---
ASSESSMENT AND HS MEDS COMPLETE EXCEPT FOR BLOOD SUGAR (GLUCOMETER IN USE IN ANOTHER ROOM). GAVE PATIENT ULTRAM 50MG PO FOR LOW BACK PAIN LF LEVEL 8/10. PRESSURE DRESSING APPLIED @ 1900 STILL HOLDING. NO FURTHER BLEEDING FROM RIGHT CHEST HEMOSPLIT SITE IS APPARENT. TOLD HOUSE STEWARD/STEWARDESS TO CHANGE HIM PRIOR TO HER DEPARTURE AT 2300, BUT TO HOLD OFF FOR NOW SO NOT TO DISLODGE CLOT FORMING UNDER PRESSURE DRESSING, SEALING HIS HEMOSPLIT INSERTION SITE.
--- NOTE | 2017-08-08 22:10 | NUR ---
FSBS 247. GAVE PATIENT 8 UNITS REGULAR SLIDING SCALE INSULIN SC IN RIGHT UPPER ARM.
[2017-08-09 00:45] VITALS: BP 118/74
--- NOTE | 2017-08-09 00:45 | NUR ---
VS TAKEN. IN BED, DENIES NEEDS. NO FURTHER DRAINAGE FROM RIGHT CHEST HEMOSPLIT SITE.
--- NOTE | 2017-08-09 02:10 | NUR ---
CONTINUES IN BED, EYES CLOSED. APPEARS COMFORTABLE.
--- NOTE | 2017-08-09 04:20 | NUR ---
PATIENT AWAKE. DENIES NEEDS. PRESSURE DRESSING OVER RIGHT CHEST HEMOSPLIT INSERTION SHOWING NO FURTHER LEAKAGE. EMPTIED 175ML DARK URINE FROM SUPRAPUBIC DRAINAGE BAG.
[2017-08-09 06:22] VITALS: BP 120/68
--- NOTE | 2017-08-09 09:01 | NUR ---
PT RESTING IN BED WITH EYES OPEN CALL LIGHT IN REACH NO PROBLEMS WILL MONITER
[2017-08-09 09:48] VITALS: BP 111/64
--- NOTE | 2017-08-09 17:35 | NUR ---
PT RESTING IN BED WITH EYES OPEN CALL LIGHT IN REACH NO PROBLEMS WILL MONITER
--- NOTE | 2017-08-09 18:40 | NUR ---
RESTING QUIETLY IN BED. CALL LIGHT IN REACH. BED IN LOWEST POSITION.
--- NOTE | 2017-08-09 19:45 | NUR ---
RECIEVED UP IN BED WITH EYES OPEN AND TV ON. RECIEVING DIALYSIS AT THAT TIME. FAMILY AT BEDSIDE AND CALL LIGHT IN REACH.
[2017-08-10 00:54] VITALS: BP 116/54
--- NOTE | 2017-08-10 02:35 | NUR ---
RESTING IN BED WITH EYES CLOSED. NO S/S OF DISTRESS OBSERVED. CALL LIGHT AND OVERBED TABLE IN REACH.
[2017-08-10 06:55] VITALS: BP 121/59
[2017-08-10 08:42] VITALS: BP 104/52
--- NOTE | 2017-08-10 09:30 | NUR ---
PT AM MEDS ADMINISTERED. PT DENIES NEEDS. WCTM.
--- NOTE | 2017-08-10 11:30 | NUR ---
PT ASSISTED INTO CHAIR VIA ERNIE TIMES 3 NURSE ASSIST.
[2017-08-10 12:45] VITALS: BP 116/70
--- NOTE | 2017-08-10 18:34 | NUR ---
PT SITTING UP IN CHAIR IN ROOM, DENIES NEEDS. WCTM.
[2017-08-10 19:25] VITALS: BP 109/63
--- NOTE | 2017-08-10 19:25 | NUR ---
RECIEVED UP IN BED WITH EYES OPEN AND TV ON. PLEASANT AND TALKATIVE. DENIES ANY PAIN AT THIS TIME. BED ALARM IN PLACE AND FUNCTIONING PROPERLY. CALL LIGHT IN REACH.
[2017-08-11 00:27] VITALS: BP 109/63
--- NOTE | 2017-08-11 00:29 | NUR ---
RESTING IN BED WITH EYES CLOSED. BIPAP IN PLACE AND FUNCTIONING PROPERLY. CALL LIGHT IN REACH.
--- NOTE | 2017-08-11 00:35 | NUR ---
RESTING IN BED WITH EYES CLOSED. NO S/S OF DISTRESS OBSERVED. CALL LIGHT IN REACH.
--- NOTE | 2017-08-11 02:44 | NUR ---
RESTING IN BED WITH EYEYS CLOSED. NO S/S OF DISTRESS OBSERVED. CALL LIGHT IN REACH.
[2017-08-11 06:35] VITALS: BP 119/69
--- NOTE | 2017-08-11 07:54 | NUR ---
RESTING QUIETLY IN BED. CALL LIGHT IN REACH. BED IN LOWEST POSITION.
--- NOTE | 2017-08-11 08:00 | NUR ---
PATIENT REMAINS IN CONTACT ISOLATION/URINE. SUPER PUBLIC CATH INTACT. PATIENT IS A DIALYSIS PATIENT AND HAS SMALL AMOUNT OF OUTPUT. PATIENT IS ALERT/ORIENT X4. BED ALARM ON. CALL LIGHT WITHIN REACH. USING CALL LIGHT FOR NEEDS.
--- NOTE | 2017-08-11 10:46 | NUR ---
PATIENT GOTTEN UP WITH ASST OF TO ERNIE LIFT ASST OF THREE PEOPLE TO ELECTRIC WHEELCHAIR.
[2017-08-11 12:00] VITALS: BP 115/64
--- NOTE | 2017-08-11 12:00 | NUR ---
GLUCOSE LEVEL 165. INSULIN GIVEN PER SLIDING SCALE ORDER
--- NOTE | 2017-08-11 16:30 | NUR ---
PATIENT PUT BACK TO BED USING ERNIE LIFT AND THREE PERSON TRANSFER. PITCH FLAKER IN ROOM SETTING UP FOR TREATMENT
[2017-08-11 18:00] VITALS: BP 120/76
--- NOTE | 2017-08-11 18:20 | NUR ---
COMPLEX CASE MANAGER REMAINS IN ROOM GIVING TX.
--- NOTE | 2017-08-11 19:35 | NUR ---
PT. IN BED WITH HOB UP FOR COMFORT AND IS WATCHING TV DIALYSIS NURSE, JESUS, FINISHES PT'S DIALYSIS FOR THE DAY. NO VOICED NEEDS AT THIS TIME. SUPRAPUBIC CATHETER TO BSD WITHOUT PROBLEMS. CALL LIGHT WITHIN REACH.
[2017-08-11 19:45] VITALS: BP 117/69
--- NOTE | 2017-08-11 23:10 | NUR ---
PT. IN BED WITH HOB UP FOR COMFORT AND IS WATCHING TV OFF AND ON, AND SNOOZING OTHER TIMES. CATHETER TO BSD WITHOUT PROBLEMS AND HIS CALL LIGHT IS WITHIN REACH. NO VOICED NEEDS AT THIS TIME.
[2017-08-12 00:02] VITALS: BP 123/68
--- NOTE | 2017-08-12 03:08 | NUR ---
PT. IN BED WITH HOB UP FOR COMFORT. EYES CLOSED AND RESP. EVEN. CATHETER TO BSD WITHOUT PROBLEMS. CALL LIGHT WITHIN REACH.
[2017-08-12 06:00] VITALS: BP 116/66
--- NOTE | 2017-08-12 08:03 | NUR ---
PT RESTING IN BED WITH EYES OPEN CALL LIGHT IN REACH EATING BREAKFAST TOLERATING WELL WILL MONITER
--- NOTE | 2017-08-12 08:15 | NUR ---
SITTING UP IN BED EATING BREAKFAST.
--- NOTE | 2017-08-12 10:59 | NUR ---
Nutrition Follow Up: Pt was in therapy at the time of RD visit. Interview deferred. Pt is eating 97% meal avg on a renal ADA diet. +BM 08/12/17. Labs reviewed. Meds noted including Prednisone. Rec continue current diet. RD following.
[2017-08-12 11:33] VITALS: BP 112/62
--- NOTE | 2017-08-12 12:15 | CN ---
PATIENT NAME:NENA BHATTI MEDICAL RECORD: [id number] : 54 LOCATION:[id number] ADMIT DATE: 07/31/17 ACCOUNT: [id number] CONSULTING PHYSICIAN: EMILEE TSANG MD REFERRING PHYSICIAN: MICHELLE JUAREZ MD DATE OF CONSULTATION: 08/11/2017 Cardiology Consultation DIAGNOSES: 1. Nonsustained ventricular tachycardia. 2. ICD. 3. Cardiomyopathy. 4. Coronary artery disease. 5. Previous percutaneous transluminal coronary angioplasty with stent. 6. Renal insufficiency, on dialysis. HISTORY OF PRESENT ILLNESS: This is a gentleman known to us, followed by Dr. Clark, who has past history of ischemic cardiomyopathy, coronary artery disease who is in rehabilitation. He is having asymptomatic nonsustained ventricular tachycardia, but he is having more and more episodes of this. He was previously on sotalol for the ventricular arrhythmia, somehow this got dropped. There is no discrete explanation in the chart as to how the sotalol got dropped. He was previously on 80 mg b.i.d. for suppression of the ventricular arrhythmias. His ICD was interrogated today. He has had nonsustained ventricular tachycardia, but no therapy delivered. PHYSICAL EXAMINATION: GENERAL APPEARANCE: Well-nourished, well-developed, appears stated age. Level of distress, comfortable. PSYCHIATRIC: Mental status, alert, normal affect. Orientation, oriented to time, place and person. EYES: Lids and conjunctiva, noninjected. No discharge, no pallor. ENT: Lips, teeth, gums, normal dentition. Oropharynx, no cyanosis, no pallor. NECK: Carotid arteries, bilateral normal upstroke, no bruits, no thrills. JUGULAR VEINS: No jugular venous pressure or distention. CERVICAL LYMPH NODES: Nontender, nonenlarged. THYROID: Not enlarged. Nontender. No nodules. LUNGS: Respiratory effort, unlabored. CHEST: Normal curvature. No thoracic deformity. No chest wall tenderness. Percussion, resonant. Auscultation, clear. No wheezes, no rales, no rhonchi. CARDIOVASCULAR: Precordial exam, nondisplaced. No heaves or pericardial thrills. Rate and rhythm, regular. Heart sounds, normal S1, normal S2. No S3, no gallop, no rub. Systolic murmur, not heard. Diastolic murmur, not heard. EXTREMITIES: No cyanosis, no edema. Peripheral pulses, full and equal in all extremities, except as noted. No bruits appreciated. ABDOMEN: Soft, nondistended. Normal aorta. No bruit. Nontender. No masses. Liver, nontender, no hepatomegaly. Spleen, nontender, no splenomegaly. MUSCULOSKELETAL: No joint tenderness. No joint swelling. No erythema. NEUROLOGICAL: Normal gait, normal strength, normal tone. SKIN: Warm and dry. OVERALL IMPRESSION: Ventricular arrhythmias, previously on sotalol with control of these. We will reinstitute the sotalol. No other cardiac workup or treatment is necessary at this time. CONSULT REPORT [id number] NENA BHATTI TRANSINT:[id number] Voice Confirmation ID: [id number] DOCUMENT ID: [id number] EMILEE TSANG MD at 1215 CC: [id number] DICTATION DATE: 08/11/17 1152 SOUP PERSON: 08/11/17 1236 ADM IN [id number] [place] [address]
--- NOTE | 2017-08-12 13:43 | NUR ---
PT RESTING IN BED WITH EYES OPEN CALL LIGHT IN REACH WILL MONITER
[2017-08-12 19:30] VITALS: BP 112/69
--- NOTE | 2017-08-12 19:35 | NUR ---
BEDSIDE SHIFT REPORT COMPLETE. PATIENT REMAINS UP IN ELECTRIC W/C AT BEDSIDE. DENIES NEEDS.
--- NOTE | 2017-08-12 20:20 | NUR ---
CONTINUES UP IN ELECTRIC W/C AT BEDSIDE.
--- NOTE | 2017-08-12 22:30 | NUR ---
TRANSFERRED PATIENT FROM [facility] VIA ERNIE LIFT. SPENT ABOUT 25 MINUTES POSITIONING PATIENT AND CLEANSING HIM FROM A LARGE SOFT TO LOOSE BM INCONTINENCE WHILE SEATED IN W/C. WITH HELP OF MARÍA RN CHANGED ALL LINENS. PERFORMED SUPRAPUBIC CATH CARE AND CLEANED SINGER CATH ALONG ITS ENTIRE LENGTH DUE TO SOILING WITH STOOL EITHER DIRECTLY OR DURING REMOVAL OF HIS SCRUB PANTS. REMOVED LIDODERM PATCH FOR THE NIGHT. APPLIED CALMOSEPTINE OINTMENT LIBERALLY TO ALL EXCORIATED AREAS OF BILAT BUTTOCKS, GROINS AND SCROTUM PATIENT WANTED ME TO APPLY A PULL-UP BRIEF BUT I TOLD HIM I WANT GET AIR FLOW TO THOSE EXCORIATED AREAS PROVIDED BY THE BLUE AIR PADS UNDERNEATH HIM. WILL HAVE TO LAUNDER THE ERNIE LIFT SLING DUE TO SOILING. THEN PROCEEDED WITH ASSESSMENT AND HS MEDS.
[2017-08-12 23:03] VITALS: BP 116/51
--- NOTE | 2017-08-12 23:05 | NUR ---
ASSESSMENT AND HS MEDS COMPLETE. FSBS 108. GAVE HIM HS SNACK. DENIES FURTHER NEEDS.
--- NOTE | 2017-08-13 00:10 | NUR ---
RESTING QUEITLY IN BED, EYES CLOSED.
--- NOTE | 2017-08-13 02:00 | NUR ---
CONTINUES IN BED, EYES CLOSED. APPEARS COMFORTABLE.
[2017-08-13 04:35] VITALS: BP 166/64
--- NOTE | 2017-08-13 04:35 | NUR ---
PATIENT AWAKE. TOOK VITAL SIGNS AND EMPTIED 250ML DARK URINE FROM SUPRAPUBIC CATH DRAINAGE BAG.
[2017-08-13 06:55] LABS: BASOPHILS 0 % (0-2); EOSINOPHILS 1.6 % (0-7); HEMATOCRIT 27.3 % (42.0-54.0); HEMOGLOBIN 8.7 g/dL (13.5-17.5); IMMATURE GRANULOCYTES 0.7 % (0-5); LYMPHOCYTES 11.8 % (15-50); MCH 29.3 pg (26.0-34.0); MCHC 31.9 g/dL (31.0-37.0); MCV 91.9 fL (80.0-100.0); MEAN PLATELET VOLUME 9.9 fL (7.4-10.4); MONOCYTES 8.4 % (2-11); NEUTROPHILS 77.5 % (40-80); RBC 2.97 10x6/uL (4.20-6.10); RDW 20.2 % (11.5-14.5); WBC 4.5 10x3/uL (4.8-10.8)
[2017-08-13 07:00] LABS: PLATELET COUNT 158 10x3/uL (130-400)
[2017-08-13 07:08] LABS: ANION GAP 16.1 mmol/L (8-16); CALCIUM 7.6 mg/dL (8.5-10.1); CARBON DIOXIDE 25.9 mmol/L (21.0-32.0); CREATININE - SERUM 3.6 mg/dL (0.6-1.3)
--- NOTE | 2017-08-13 07:40 | NUR ---
SITTING UP IN BED RESTING. ALERT AND ORIENTED X4. DENIES ANY NEEDS. NO S/SX OF ACUTE DISTRESS NOTED. CALL LIGHT AND PERSONAL ITEMS WITHIN REACH, BED LOW AND ALARM ON. WILL CONTINUE TO MONITOR
--- NOTE | 2017-08-13 09:41 | NUR ---
ADMINISTERED MORNING MEDS WHOLE WITHOUT DIFFICULTY. IN THERAPY GYM WITH OCCUPATIONAL THERAPY. DENIES ANY NEEDS. NO S/SX OF ACUTE DISTRESS NOTED. WILL CONTINUE TO MONITOR
[2017-08-13 12:13] VITALS: BP 121/73
--- NOTE | 2017-08-13 12:18 | NUR ---
SITTING UP IN ELECTRIC CHAIR EATING LUNCH. DENIES ANY NEEDS OR PAIN. NO S/SX OF ACUTE DISTRESS NOTED. CALL LIGHT AND PERSONAL ITEMS WITHIN REACH, CHAIR IN OFF POSITION. WILL CONTINUE TO MONITOR
--- NOTE | 2017-08-13 12:23 | RHP ---
PATIENT: NENA BHATTI MEDICAL RECORD: [id number] ACCOUNT: [id number] [facility] : [birth year] ADMISSION DATE: 07/31/17 REHABILITATION HISTORY AND PHYSICAL EXAMINATION POST ADMISSION PHYSICIAN EXAMINATION ADMITTING DIAGNOSIS: Uremic myopathy. HISTORY OF PRESENT ILLNESS: The patient is a 66-year-old gentleman who presents to the rehab with a diagnosis of uremic myopathy. The patient presented with 2 to 3 day history of nausea and vomiting to the Emergency Room. He has bilateral gmbvp-dwn-hona amputation secondary to complications from diabetes. He recently had finger on his left hand amputated. He was evaluated in the ER and found to have renal insufficiency with dehydration and hyperkalemia. He was admitted on 07/01/2017 for IV fluids and possible UTI. The patient has a chronic suprapubic catheter. He has an extended hospital stay and workup and in his serology was positive for Past[place] spotted fever and the patient was put on doxycycline. Initially, he was treated with Zosyn and doxycycline. He has a history of coronary artery disease status post fairly recent intervention, history of chronic renal insufficiency. He has been started on hemodialysis with recent worsening of his renal failure and hyperkalemia, found to have intermittent nonsustained V-tach. There was short duration, did not activate his underlining implantable cardiac device. He was found on C&S to have a UA which was positive for ESBL positive E. coli. His UTI progressed rapidly into sepsis and acute renal failure, acute liver failure with underlying cirrhosis with encephalopathy and ascites. He was moved to the ICU on 07/04/2017 due to change in his condition. He has multiple comorbidities including chronic kidney disease, cirrhosis, coronary artery disease, CHF, COPD, diabetes, peripheral vascular disease, hypertension, anemia of chronic disease, renal failure, below the knee amputations secondary to peripheral vascular disease and neurogenic bladder. He has got hemodialysis catheter placed during his acute hospital stay, this has been delayed due to low platelet count. He has had multiple consultations during his acute stay. The patient is very deconditioned and debilitated due to extended hospital stay and has progressed medically and is now ready for acute rehab to get back to his prior level of function being moderately independent with use of wheelchair, moderately independent with ADLs. He is currently set at moderate to max assist with his bed mobility and set up from max assist with ADLs. He lives at home with his and would like to return there to his prior level of functioning if possible. COMORBIDITIES: In this patient include diabetes; suexc-wt-fcnpbdx respiratory failure; renal dialysis dependence; cardiomyopathy; end-stage renal disease; deconditioning; thrombocytopenia; COPD; aspiration pneumonia; cirrhosis with elevated LFTs; hepatic encephalopathy, multifactorial; leukocytosis; bronchitis; UTI with extended-spectrum beta-lactamase positive Escherichia coli; nonsustained V-tach; sepsis; cirrhosis; chronic renal sufficiency; coronary artery disease; peripheral vascular disease; hypertension; chronic systolic congestive heart failure. He has got an implantable automatic cardioverter/defibrillator; chronic back pain and chronic ascites. PAST MEDICAL HISTORY: Significant for COPD; congestive heart failure; coronary artery disease; history of WI; peripheral vascular disease; diabetes; cirrhosis; chronic suprapubic catheter; neuropathy; home O2 dependence; cardiac arrhythmia; hypertension; hyperlipidemia; chronic insufficiency with worsening of this condition; cerebral vascular disease. He has also got a history of peripheral HISTORY AND PHYSICAL [id number] NENA BHATTI vascular disease with bilateral AKAs. PAST SURGICAL HISTORY: Includes below the knee amputations; coronary artery bypass grafting; cardiac catheterization; implantation of a defibrillator and pacemaker; suprapubic catheterization. He has got a history of recent amputation of his left ring finger. ALLERGIES: No known drug allergies. CURRENT MEDICATIONS: He is on a prednisone taper; he is on Protonix 40 mg daily; lactulose 30 cc daily; he is on folic acid daily; he is on Flonase nasal spray daily; Nasreen 60 mg daily; calcium carbonate 500 mg t.i.d. with meals; chewable aspirin daily; he is on Calmoseptine as needed; tramadol 50 mg every 6 hours p.r.n.; Betapace 80 mg b.i.d.; Xifaxan 550 mg b.i.d.; nystatin suspension 5 cc before meals and at bedtime; DuoNeb updrafts; he is on intermittent resistant sliding scale with Humalog; he is on Pulmicort 0.5 mg b.i.d.; Benzonate 100 mg t.i.d. p.r.n.; Brovana 15 mcg b.i.d.; polyethylene glycol 17 grams in 8 ounces of water daily. HABITS: No current alcohol or tobacco use. FAMILY HISTORY: Noncontributory. SOCIAL HISTORY: The patient hopes to return back home with his family to get back to his prior level of functioning. He lives with his . REVIEW OF SYSTEMS: GENERAL: Does complain of some weakness. HEENT: He denies cold, cough, or congestion. CARDIOVASCULAR: Denies chest pain. PHYSICAL EXAMINATION: VITAL SIGNS: Stable, afebrile. GENERAL: A well-developed gentleman in no acute distress upon exam. HEENT: Normocephalic and atraumatic. Mucosa moist. NECK: Supple. No lymphadenopathy. LUNGS: Clear at this time. HEART: Regular rate and rhythm. ABDOMEN: Benign. EXTREMITIES: He was noted to have bilateral amputations to his lower extremities. NEUROLOGIC: He seems intact. LABORATORY DATA: His white count is 7.8, H&H of 7.5 and 23.2 and platelet count was noted to be 62,000. Sodium 135, potassium 4.5, BUN and creatinine of 69 of 4.0. Blood sugar is noted to be 127. ASSESSMENT: This 66-year-old gentleman who was admitted to the rehab with a working diagnosis of uremic myopathy status post bilateral amputations of his lower extremities. The patient has potential to make improvement. We instituted the following multidisciplinary therapies including to, but not limited to physical, occupational, respiratory, speech, nutritional services, prosthetics and orthotics. Given his complex condition and risk for more complications, rehabilitation services cannot be provided at a low level of care such as a fpc facility. HISTORY AND PHYSICAL [id number] NENA BHATTI PLAN: 1. Admit to [facility] rehab for intensive inpatient therapy to include the following disciplines: A. Physical therapy to improve gait, all transfer skills and bed mobility to a modified independent level. B. Occupational therapy to improve activities of daily living to a modified independent level. C. Case management to assist with discharge planning and placement options. D. Nutrition to assist with nutritional needs. E. Rehabilitation nursing to assist in monitoring the patient's underlying medical conditions and to assist with any type of bowel or bladder management. 2. The patient's current medication and medical care will be continued. 3. The patient will be placed on standard fall precautions. 4. We will watch his ammonia levels closely. 5. We will continue to follow with renal and let them manage his BUN and creatinine and H&H. 6. We will discuss this patient during care team staff meeting in the next week. TRANSINT:[id number] Voice Confirmation ID: [id number] DOCUMENT ID: [id number] THIEN notes whether there has been none or any medical/functional change since admission: - No change since prescreen. THIEN attests patient continues to be appropriate for IRF: - Continues to be appropriate. MICHELLE JUAREZ MD at 1223 CC: [id number] DICTATION DATE: 08/01/17 0842 CAKE STRIPPER: 08/01/17 1211 ADM IN [facility] [address] [id number]
--- NOTE | 2017-08-13 17:00 | NUR ---
LYING IN BED RECEIVING DIALYSIS BY TIMA BASSETT. DENIES ANY NEEDS. NO S/SX OF ACUTE DISTRESS NOTED. CALL LIGHT AND PERSONAL ITEMS WITHIN REACH, BED LOW AND ALARM ON. WILL CONTINUE TO MONITOR
[2017-08-13 18:14] VITALS: BP 117/66
--- NOTE | 2017-08-13 19:00 | NUR ---
PATIENT AWAKE, IN BED, UNDERGOING HEMODIALYSYS. HAS ONLY A SHORT TIME REMAINING. TOLD HIM I WILL REHEAT HIS DINNER WHEN HE FINISHES HD.
--- NOTE | 2017-08-13 20:20 | NUR ---
IN BED, AWAKE. DENIES NEEDS. COLLECTED HIS MENU.
--- NOTE | 2017-08-13 21:50 | NUR ---
PATIENT IN BED ON BEDPAN. WILL HAVE A BEDBATH WITH SECURITY INTERN ASSIST IMMEDIATELY FOLLOWING. ASSESSMENT AND HS MEDS ARE DEFERRED UNTIL BATH IS COMPLETE. I SO INFORMED PATIENT WHO HAS NO CURRENT COMPLAINTS.
--- NOTE | 2017-08-13 22:20 | NUR ---
BATH UNDERWAY WITH PIPELINES SUPERINTENDENT ASSIST.
[2017-08-13 23:35] VITALS: BP 112/59
--- NOTE | 2017-08-13 23:35 | NUR ---
ASSESSMENT AND HS MEDS COMPLETE. GAVE PATIENT ULTRAM 50MG PO FOR PAIN LEVEL OF 4/10 IN LOW BACK. LIDODERM PATCH WAS REMOVED DURING BATH. CHANGED RIGHT CHEST HEMOSPLIT DRESSING USING STERILE TECHNIQUE. APPLIED THICK PAD OF STERILE 4X4'S OVER NEW CVL DRESSING TO APPLY PRESSURE TO SITE AND REDUCE ANY POTENTIAL BLEEDING INITIATED BY CVL DRESSING CHANGE. PATIENT DENIES FURTHER NEEDS. FSBS WAS 180. GAVE PATIENT 4 UNITS REGULAR SLIDING SCALE INSULIN.
--- NOTE | 2017-08-14 02:15 | NUR ---
CONTINUES IN BED, EYES CLOSED. NO APPARENT DISCOMFORT.
--- NOTE | 2017-08-14 04:35 | NUR ---
EMPTIED 100ML CLOUDY DARK YELLOW URINE FROM BEDSIDE URINE DRAINAGE BAG. TOOK QUALITY ASSURANCE SUPERVISOR TRIM VS. PATIENT DENIES NEEDS.
[2017-08-14 04:45] VITALS: BP 113/58
--- NOTE | 2017-08-14 05:35 | NUR ---
FSBS 107. GAVE PATIENT SCHEDULED PO PROTONIX. DENIES NEEDS.
--- NOTE | 2017-08-14 05:40 | NUR ---
GAVE PATIENT SCHEDULED PROTONIX AND SYNTHROID PO DENIES NEEDS.
--- NOTE | 2017-08-14 07:30 | NUR ---
RESTING QUIETLY IN BED. CALL LIGHT IN REACH. BED IN LOWEST POSITION.
--- NOTE | 2017-08-14 12:15 | NUR ---
PT RESTING IN BED WITH EYES OPEN CALL LIGHT IN REACH WILL MONITER
[2017-08-14 12:21] VITALS: BP 110/62
--- NOTE | 2017-08-14 13:15 | NUR ---
[place] RESTING IN BED WITH EYES OPEN CALL LIGHT IN REACH NO PROBLEMS WILL MONITER
--- NOTE | 2017-08-14 16:28 | NUR ---
CARE TEAM MEETING: PATIENT PROGRESSING IN THERAPY , TENATIVE DISCHARGE DATE IS 08/22/17. PER PATIENT REQUEST A REFERRAL HAS BEEN MADE TO [facility] FOR POSSIBLE ADMISSION. WILL CONTINUE TO FOLLOW WITH PATIENT.
[2017-08-14 18:51] VITALS: BP 110/69
--- NOTE | 2017-08-14 19:00 | NUR ---
IN BED, HOB UP 45 DEGREES. DENIES NEEDS.
--- NOTE | 2017-08-14 21:30 | NUR ---
ASSESSMENT AND HS MEDS COMPLETE. GAVE PATIENT ULTRAM 50MG PO FOR PAIN LEVEL OF 4/10 IN LOW BACK.
--- NOTE | 2017-08-14 22:20 | NUR ---
REMAINS AWAKE. JUST COMPLETED HIS MENU. DENIES NEEDS.
[2017-08-14 23:00] VITALS: BP 113/60
--- NOTE | 2017-08-15 00:20 | NUR ---
RESTING QUIETLY IN BED, EYES CLOSED.
--- NOTE | 2017-08-15 02:10 | NUR ---
RESTING QUEITLY IN BED, EYES CLOSED.
--- NOTE | 2017-08-15 04:45 | NUR ---
EMPTIED 100ML CLOUDY DARK YELLOW URINE FROM BEDSIDE DRAINAGE BAG.
[2017-08-15 05:00] VITALS: BP 114/60
--- NOTE | 2017-08-15 06:20 | NUR ---
FSBS 110. RECENTLY GAVE PATIENT SCHEDULED PROTONIX AFTER ASSISTING HIM ONTO BEDPAN AND OFF AFTER SMALL SOFT BM. DENIES FURTHER NEEDS.
--- NOTE | 2017-08-15 08:28 | NUR ---
SITTING UP EATING BREAKFAST. DENIES NEEDS.
--- NOTE | 2017-08-15 12:15 | NUR ---
PT RESTING IN BED WITH EYES OPEN CALL LIGHT IN REACH WILL MONITER
--- NOTE | 2017-08-15 12:43 | NUR ---
Dialysis Coordinator: [facility]: Patient has been accepted @ [facility] on a //Sat @ 12:30p.m. schedule. Patient can start in-center on August 19 @ 11:15a.m. for paperwork. Welcome Letter forwarded to for patient. AUGUSTO LORENZ.
[2017-08-15 18:19] VITALS: BP 128/68
--- NOTE | 2017-08-15 19:30 | NUR ---
PT. IN BED WITH HOB UP FOR COMFORT AND IS RECEIVING HIS DIALYSIS. ASSESSMENT COMPLETED. NO VOICED NEEDS AT THIS TIME. SUPRAPUBIC CATHETER DRAINING TO BSD WITHOUT PROBLEMS. CALL LIGHT WITHIN REACH.
[2017-08-15 19:55] VITALS: BP 110/59
--- NOTE | 2017-08-15 23:10 | NUR ---
PT. IN BED WITH HOB UP FOR COMFORT AND IS WATCHING TV. NO VOICED NEEDS AT THIS TIME AND HIS CALL LIGHT IS WITHIN REACH.
[2017-08-16 00:48] VITALS: BP 113/65
--- NOTE | 2017-08-16 03:01 | NUR ---
PT. IN BED WITH HOB SLIGHTLY ELEVATED FOR COMFORT. EYES CLOSED AND RESP. EVEN. CATHETER TO BSD WITHOUT PROBLEMS. CALL LIGHT WITHIN REACH.
--- NOTE | 2017-08-16 08:00 | NUR ---
PT LYING IN BED ON BACK, EVEN RISE AND FALL OF CHEST, NO SIGNS OF DISTRESS, EASILY AWAKEN WITH SOUND OF VOICE, NO NEEDS OR COMPLAINTS OF PAIN AT THIS MAURA, CONTINUE WITH PLAN OF CARE
[2017-08-16 09:41] VITALS: BP 108/60
--- NOTE | 2017-08-16 12:30 | NUR ---
ASSISTED UP IN CHAIR WITH ERNIE LIFT X3 ASSIST.CL IN REACH.
[2017-08-16 18:55] VITALS: BP 109/66
--- NOTE | 2017-08-16 18:56 | NUR ---
PT SUPERPUBIC CATHETER CHANGED BY DANYELLE GUNN AT 1830. PT TOLERATED WELL, STATED DIDN'T HURT I EXPECTED, BED IN LOW POSITION, CL IN REACH
--- NOTE | 2017-08-16 19:25 | NUR ---
PT. IN BED WITH HOB UP FOR COMFORT AND HE IS WATCHING TV. ASSESSMENT COMPLETED. NO VOICED NEEDS AT THIS TIME. SUPRAPUBIC CATHETER WAS CHANGED TODAY AND IS DRAINING TO BSD WITHOUT PROBLEMS. CALL LIGHT WITHIN REACH.
--- NOTE | 2017-08-16 23:10 | NUR ---
PT. IN BED WITH HOB UP FOR COMFORT AND IS WATCHING TV. NO VOICED NEEDS AND HIS CALL LIGHT IS WITHIN REACH. CATHETER TO BSD WITHOUT ANY PROBLEM.
[2017-08-17 00:13] VITALS: BP 110/60
--- NOTE | 2017-08-17 02:10 | NUR ---
INGOT HEADER CALLED AND REPORTED PT. HAD A RUN OF V-TACH. CHECKED ON PT. AND HE IS AWAKE AND IS "FEELING Ok" WHEN I ASKED HIM. CALL LIGHT WITHIN REACH.
--- NOTE | 2017-08-17 03:00 | NUR ---
PT. IN BED WITH HOB UP FOR COMFORT. EYES CLOSED AND RESP. EVEN. CATHETER TO BSD WITHOUT PROBLEMS. CALL LIGHT WITHIN REACH.
[2017-08-17 05:40] VITALS: BP 118/62
--- NOTE | 2017-08-17 08:00 | NUR ---
PATIENT REMAINS IN ISOLATION FOR VRE IN URINE. PATIENT HAS A SUPERPUBIC CATH. VERY LOW OUTPUT DUE TO RENAL FAILURE, DIALYSIS PATIENT. PATIENT UNABLE TO GET OUT OF BED BY SELF. ERNIE LIFT WITH THREE TOTAL ASST. BED ALARM ON PER MAXINE. CALL LIGHT WITHIN REACH. PATIENT USING CALL LIGHT FOR NEEDS.
[2017-08-17 08:37] VITALS: BP 110/56
--- NOTE | 2017-08-17 11:30 | NUR ---
PATIENT HELPED UP FROM BED INTO ELECTRIC WHEELCHAIR. TOTAL ASST OF THREE WITH ERNIE LIFT. GLUCOSE LEVEL 201. EIGHT UNITS OF SLIDING SCALE INSULIN GIVEN
[2017-08-17 12:10] VITALS: BP 111/71
--- NOTE | 2017-08-17 14:50 | NUR ---
PATIENT SITTING UP IN ELECTRIC WHEELCHAIR IN ROOM. WATCHIN FOOTBALL GAME. VOICES NO NEEDS AT THIS TIME. CALL LIGHT WITHIN REACH
--- NOTE | 2017-08-17 17:00 | NUR ---
GLUCOSE LEVEL 201. EIGHT UNITS OF SLIDING SCALE INSULIN GIVEN.
--- NOTE | 2017-08-17 17:21 | NUR ---
SITTING UP IN WC EATING SUPPER.CL IN REACH.
[2017-08-17 18:13] VITALS: BP 118/67
--- NOTE | 2017-08-17 19:15 | NUR ---
PT. IN BED WITH HOB UP FOR COMFORT AND IS WATCHING TV. CATHETER DRAINING TO BSD WITHOUT PROBLEMS. CALL LIGHT WITHIN REACH.
--- NOTE | 2017-08-17 20:50 | NUR ---
MEDS GIVEN ORDERED.
--- NOTE | 2017-08-17 23:44 | NUR ---
ASSISTED PT WITH BEDPAN.
--- NOTE | 2017-08-18 00:09 | NUR ---
ASSESSED VITAL SIGNS, SEE FLOWSHEET.
[2017-08-18 00:22] VITALS: BP 108/59
--- NOTE | 2017-08-18 02:13 | NUR ---
REST IN BED, EYE CLOSE, CALL LIGHT IN REACH.
--- NOTE | 2017-08-18 04:11 | NUR ---
REST IN BED, EYE CLOSE, CALL LIGHT IN REACH.
[2017-08-18 06:17] VITALS: BP 115/65
[2017-08-18 07:10] LABS: BASOPHILS 0.2 % (0-2); EOSINOPHILS 0.9 % (0-7); HEMATOCRIT 26.6 % (42.0-54.0); HEMOGLOBIN 8.7 g/dL (13.5-17.5); IMMATURE GRANULOCYTES 0.7 % (0-5); LYMPHOCYTES 12.7 % (15-50); MCH 29.7 pg (26.0-34.0); MCHC 32.7 g/dL (31.0-37.0); MCV 90.8 fL (80.0-100.0); MEAN PLATELET VOLUME 9.8 fL (7.4-10.4); MONOCYTES 11.9 % (2-11); NEUTROPHILS 73.6 % (40-80); PLATELET COUNT 168 10x3/uL (130-400); RBC 2.93 10x6/uL (4.20-6.10); RDW 19.3 % (11.5-14.5); WBC 5.4 10x3/uL (4.8-10.8)
[2017-08-18 07:21] LABS: ANION GAP 11.8 mmol/L (8-16); CALCIUM 7.8 mg/dL (8.5-10.1); CARBON DIOXIDE 28.9 mmol/L (21.0-32.0); CREATININE - SERUM 4.8 mg/dL (0.6-1.3); POTASSIUM - SERUM 3.7 mmol/L (3.5-5.1)
[2017-08-18] MEDS ORDERED: BETAPACE 120 M120 MG PO (08:21)
--- NOTE | 2017-08-18 09:45 | NUR ---
PT AM MEDS ADMINSITRED. PT DENIES NEEDS. WCTM.
[2017-08-18 11:35] VITALS: BP 118/66
--- NOTE | 2017-08-18 16:04 | NUR ---
PATIENT DISCHARGING TO [facility] VIA FACILITY [facility]. PATIENT WILL CONTINUE HD ON FRIDAY, FRIDAY AND FRIDAY AT [facility] , CHAIRTIME IS 12:30. NO DME OR HOME HEALTH NEEDED AT THIS TIME. AN APPOINTMENT WITH DR. ERICKSON WILL BE MADE AT TIME OF DISCHARGE FROM FACILITY. PATIENT WILL SEE HD DOCTOR AT CLINIC.PATIENT CHOICE FORM FOR SNF AND [facility] FORM SIGNED, EXPLAINED AND FILED IN CHART.
--- NOTE | 2017-08-18 16:32 | NUR ---
PATIENT HAS DISCHARGED FROM REHAB TO THE [facility] INSTEAD OF [facility]. SPOUSE NOTIFIED AND SHE WILL TRANSPORT PATIENT ELECTRIC CHAIR.
--- NOTE | 2017-08-18 16:35 | NUR ---
PT DISCHARGED TO THE [facility] WITH [facility] STAFF VIA WHEELCHAIR.
--- NOTE | 2017-10-09 14:37 | DS ---
PATIENT:NENA BHATTI :54 MEDICAL RECORD: [id number] DISCHARGE SUMMARY ADMISSION DATE: 07/31/17 DISCHARGE DATE: 08/18/17 This is a discharge dated 08/18/2017 from the inpatient rehab. PRIMARY DIAGNOSIS: Decreased functional ability and ability to provide activities of daily living secondary to uremic myopathy. SECONDARY DIAGNOSES: 1. End-stage renal disease on chronic hemodialysis. 2. Diabetes type 2. 3. Anemia of chronic disease. 4. Bilateral AKAs. 5. Peripheral vascular disease. 6. Atrial fibrillation. 7. V-Tach. 8. Hyperlipidemia. 9. Coronary artery disease. 10. Chronic systolic congestive heart failure. 11. Acute on chronic hypoxic respiratory failure. 12. COPD. 13. Ischemic cardiomyopathy. 14. Neurogenic bladder. 15. Chronic suprapubic catheter. 16. Hyponatremia. 17. Chronic back pain. 18. [place] spotted fever. 19. History of left finger amputation. CONSULTANTS FOLLOWING THIS HOSPITALIZATION: Nephrology with Dr. Rosa. Cardiology with Dr. De Guzman. HOSPITAL COURSE: Full H&P is located elsewhere on the chart on this 66-year-old male who was admitted to inpatient rehab for physical therapy and occupational therapy to improve gait, transfer skills, bed mobility, and activities of daily living to a modified independent level. He was evaluated by PT and OT and their plans of care were followed. He required retirement care for observation and assessment and medication administration. Electrolytes were managed by protocol. He remained on supplemental oxygen and nebulized medications for respiratory support. He was on telemetry. Fingerstick blood sugars were monitored throughout his hospital stay with appropriate adjustment in medications as needed. He was on a tapering dose of prednisone on admission. Nephrology was consulted. He was seen by Dr. Rosa for management of hemodialysis. He continued dialysis 3 times weekly during this hospital stay. He developed some runs of V-tach and cardiology was consulted. He was seen by Dr. De Guzman. He was asymptomatic during this episode and it did not recur. He was cooperative with therapies, progressing towards goals. Case management was involved for discharge planning. He was considered stable for discharge on 08/18/2017. DISCHARGE MEDICATIONS: As per discharge medication reconciliation. DISCHARGE DISPOSITION: The patient is discharged to [facility] retirement facility. He will continue his current diet and level of DISCHARGE SUMMARY REPORT [id number] NENA BHATTI activity. He will follow with primary care at the longterm and with specialists as directed. He will continue his 3 times weekly hemodialysis at [facility] and will follow with nephrology in that facility. At least 30 minutes was spent in this discharge activity. TRANSINT:[id number] Voice Confirmation ID: [id number] DOCUMENT ID: [id number] Dictated By: NATAN FERNANDES I have interviewed/examined the above patient and agree with these documented findings. MICHELLE JUAREZ MD at 1802 at 1437 CC: [id number] DICTATION DATE: 10/05/17 1416 DIRECTOR OF PHYSICIAN PRACTICES: 10/06/17 0147 DIS IN 08/18/17 [id number] [place] [address]
== END 2017-08-18 16:37 | DRG 91 ==
LOC: D.REHAB 18:30
PROVIDERS: ADMIT Emergency Medicine
PROC: 5A1D70Z Performance of Urinary Filtration, Intermittent, Less than 6 Hours Per Day (ICD-10-PCS; principal; 2017-08-01)
DX: G72.89 Other specified myopathies (principal); N18.6 End stage renal disease; J96.20 Acute and chronic respiratory failure, unspecified whether with hypoxia or hypercapnia; J69.0 Pneumonitis due to inhalation of food and vomit; A41.9 Sepsis, unspecified organism; I13.2 Hypertensive heart and chronic kidney disease with heart failure and with stage 5 chronic kidney disease, or end stage renal disease; I42.9 Cardiomyopathy, unspecified; N39.0 Urinary tract infection, site not specified; I50.22 Chronic systolic (congestive) heart failure; E11.22 Type 2 diabetes mellitus with diabetic chronic kidney disease; Z99.2 Dependence on renal dialysis; J44.9 Chronic obstructive pulmonary disease, unspecified; K74.60 Unspecified cirrhosis of liver; R79.89 Other specified abnormal findings of blood chemistry; K72.90 Hepatic failure, unspecified without coma; D72.829 Elevated white blood cell count, unspecified; D69.6 Thrombocytopenia, unspecified; I73.9 Peripheral vascular disease, unspecified

== ENCOUNTER 2017-09-06 18:41 | Observation (INO) | payer MEDICARE, BC ==
[~2017-09-06] VITALS: Ht 124.5 cm; Wt 85.9 kg
--- NOTE | ~2017-09-06 | CN ---
PATIENT NAME:NENA BHATTI MEDICAL RECORD: [id number] : 54 LOCATION:D.Nas D.2108 ADMIT DATE: 09/06/17 ACCOUNT: [id number] CONSULTING PHYSICIAN: JUAN DANIEL DOHERTY MD REFERRING PHYSICIAN: MADDY ZARATE MD DATE OF CONSULTATION: 09/07/2017 HISTORY OF PRESENT ILLNESS: A 66-year-old gentleman with a known cardiovascular history, most recently with percutaneous intervention in March of 2017, history of severe cardiomyopathy, chronic renal insufficiency on dialysis, had yesterday about 2 hours of dialysis, chest pain, nonradiating, atypical for his angina, is at baseline with his breathlessness. Enzymes are stable elevated. We are asked to see him concerning his cardiovascular status. PAST MEDICAL HISTORY: Includes: 1. History of coronary artery disease, most recent intervention in March of 2017. 2. Cardiomyopathy with 3-lead ICD. 3. Chronic renal insufficiency, on dialysis. 4. Diabetes mellitus. 5. Severe peripheral arterial disease status bilateral AKAs. ALLERGIES: None known. MEDICATIONS: Include insulin per scale, Protonix 40 mg p.o. every day, Pulmicort 0.5 b.i.d., tramadol 50 q.6 hours p.r.n., aspirin 81 every day, sotalol 80 b.i.d., DuoNeb q.6 hours p.r.n., Brovana 15 mcg b.i.d. SOCIAL HISTORY: He currently is in [facility] undergoing rehab after prolonged hospital stay, usually lives at home with who gives support. Nonsmoker, nondrinker. REVIEW OF SYSTEMS: The patient reports easy bruising but reports no swollen glands. The patient reports no fever, no night sweats, no significant weight gain, no significant weight loss. No significant exercise tolerance. The patient reports no dry eyes, no irritation, no vision change. Patient reports no difficulty hearing and no ear pain. Patient reports no frequent nose bleeds or nose and sinus problems. Patient reports on arm pain on exertion. No shortness of breath while lying down. No history of heart murmur. Patient reports no cough, no wheezing or coughing up blood. Patient reports no abdominal pain, no vomiting. Normal appetite. No diarrhea and not vomiting blood. No nausea and no constipation. Patient reports no incontinence. No difficulty urinating. No hematuria. No increased frequency. Patient reports no muscle aches. No weakness, no arthralgias, no back pain. No swelling of the extremities. Patient reports no abnormal mole, no jaundice, no rashes. Reports no loss of consciousness. No weakness and no numbness. No seizures, dizziness, or headaches. The patient reports no depression, no sleep disturbance, feeling safe in a relationship and no alcohol abuse. Patient reports on fatigue. Reports no runny nose or sinus pressure. No itching, no hives, and no frequent sneezing. PHYSICAL EXAMINATION: GENERAL: Pleasant gentleman in no acute distress. VITAL SIGNS: Blood pressure 101/50, pulse 79 and regular. HEENT: Normocephalic, atraumatic. CONSULT REPORT [id number] NENA BHATTI NECK: No JVD or bruits noted. HEART: Currently is regular. II/ systolic ejection murmur, probable S3 gallop. LUNGS: Diminished air excursion. ABDOMEN: Soft, nontender. EXTREMITIES: Lower extremities show well-healed AKA scars. IMPRESSION: Somewhat atypical for his angina. No upward creatinine in his cardiac enzymes. BNP is elevated, but this is baseline. At this point, no contraindications to discharge from a cardiovascular standpoint. TRANSINT:[id number] Voice Confirmation ID: [id number] DOCUMENT ID: [id number] JUAN DANIEL DOHERTY MD at 1337 CC: [id number] DICTATION DATE: 09/07/17 1020 SENIOR BRANCH MANAGER: 09/07/17 1138 DIS IN 09/07/17 [id number] [place] [address]
[~2017-09-06 18:41] MED LIST changes: +BETAPACE 120 M120 MG PO
[2017-09-06 19:20] LABS: BASOPHILS 0.3 % (0-2); EOSINOPHILS 0.4 % (0-7); HEMATOCRIT 30.5 % (42.0-54.0); HEMOGLOBIN 9.6 g/dL (13.5-17.5); IMMATURE GRANULOCYTES 0.8 % (0-5); LYMPHOCYTES 7.6 % (15-50); MCH 28.9 pg (26.0-34.0); MCHC 31.5 g/dL (31.0-37.0); MCV 91.9 fL (80.0-100.0); MEAN PLATELET VOLUME 10.3 fL (7.4-10.4); MONOCYTES 7.1 % (2-11); NEUTROPHILS 83.8 % (40-80); PLATELET COUNT 191 10x3/uL (130-400); RBC 3.32 10x6/uL (4.20-6.10); RDW 19.3 % (11.5-14.5); WBC 11.4 10x3/uL (4.8-10.8)
[2017-09-06 19:47] LABS: ALBUMIN 2.8 g/dL (3.4-5.0); BILIRUBIN - TOTAL 1.4 mg/dL (0.2-1.3); CALCIUM 8.3 mg/dL (8.5-10.1); CARBON DIOXIDE 29.8 mmol/L (21.0-32.0); CREATININE - SERUM 2.3 mg/dL (0.6-1.3); POTASSIUM - SERUM 3.8 mmol/L (3.5-5.1); PROTEIN - SERUM 6.4 g/dL (6.4-8.2)
[2017-09-06 19:56] LABS: TROPONIN-I 0.058 ng/mL (0.000-0.060)
[2017-09-06 21:00] VITALS: BP 122/62
[2017-09-07] MEDS ORDERED: ZINC OXIDE 20 %30 GM TOPICAL (00:05)
[2017-09-07] MEDS ORDERED: IPRAT-ALBUT 0.5-3 ML UPD (00:14)
[2017-09-07] MEDS ORDERED: MUCUS RELIEF400 MG PO (00:15)
[2017-09-07] MEDS ORDERED: CALCIUM 600+D T1 TA1 PO (00:22)
[2017-09-07] MEDS ORDERED: BETAPACE 80 MG80 MG PO (00:24)
[2017-09-07] MEDS ORDERED: NEPHRO-VITE RX1 TAB PO (00:25)
[2017-09-07 01:29] VITALS: BP 122/62
[2017-09-07 08:22] VITALS: BP 101/50
[2017-09-07 12:55] VITALS: BP 101/61
[2017-09-07 14:06] VITALS: Ht 124.5 cm; Wt 85.9 kg
== END 2017-09-07 17:52 ==
LOC: D.ER 18:41 → D.M2 20:43 → OBSVTIME 20:43 → D.M2 09-07 17:52
PROVIDERS: Family Medicine
DX: R10.9 Unspecified abdominal pain (principal); I25.119 Atherosclerotic heart disease of native coronary artery with unspecified angina pectoris; Z95.5 Presence of coronary angioplasty implant and graft; Z95.1 Presence of aortocoronary bypass graft; Z95.0 Presence of cardiac pacemaker; I42.9 Cardiomyopathy, unspecified; E11.22 Type 2 diabetes mellitus with diabetic chronic kidney disease; I13.2 Hypertensive heart and chronic kidney disease with heart failure and with stage 5 chronic kidney disease, or end stage renal disease; N18.6 End stage renal disease; I50.22 Chronic systolic (congestive) heart failure; Z99.2 Dependence on renal dialysis; Z79.4 Long term (current) use of insulin; Z89.612 Acquired absence of left leg above knee; Z89.611 Acquired absence of right leg above knee; E11.51 Type 2 diabetes mellitus with diabetic peripheral angiopathy without gangrene; I48.2 Chronic atrial fibrillation; G89.29 Other chronic pain; M54.9 Dorsalgia, unspecified; K74.60 Unspecified cirrhosis of liver

== ENCOUNTER 2017-09-10 02:24 | Inpatient (IN) | payer MEDICARE, BC ==
[~2017-09-10] VITALS: Ht 124.5 cm; Wt 88.5 kg
[~2017-09-10 02:24] MED LIST changes: +CALCIUM 600+D T1 TA1 PO; +ZINC OXIDE 20 %30 GM TOPICAL
[2017-09-10 16:16] VITALS: BP 96/59; BMI 57.2
[2017-09-10 21:00] VITALS: BP 128/48
[2017-09-11 01:03] VITALS: BP 92/56
[2017-09-11 06:04] VITALS: BP 111/67
[2017-09-11 08:08] VITALS: BP 108/61
[2017-09-11 13:40] VITALS: Ht 124.5 cm; Wt 88.5 kg
[2017-09-11 14:04] LABS: BASOPHILS 0.2 % (0-2); EOSINOPHILS 1.3 % (0-7); HEMATOCRIT 31.3 % (42.0-54.0); HEMOGLOBIN 9.7 g/dL (13.5-17.5); IMMATURE GRANULOCYTES 0.6 % (0-5); LYMPHOCYTES 8.5 % (15-50); MCV 93.7 fL (80.0-100.0); MEAN PLATELET VOLUME 9.6 fL (7.4-10.4); MONOCYTES 4.7 % (2-11); NEUTROPHILS 84.7 % (40-80); PLATELET COUNT 227 10x3/uL (130-400); RBC 3.34 10x6/uL (4.20-6.10); WBC 10.8 10x3/uL (4.8-10.8)
[2017-09-11 14:44] LABS: ALBUMIN 2.6 g/dL (3.4-5.0); ANION GAP 9.8 mmol/L (8-16); BILIRUBIN - TOTAL 0.77 mg/dL (0.2-1.3); CALCIUM 8.1 mg/dL (8.5-10.1); CARBON DIOXIDE 30.6 mmol/L (21.0-32.0); CREATININE - SERUM 2.1 mg/dL (0.6-1.3); POTASSIUM - SERUM 3.4 mmol/L (3.5-5.1); PROTEIN - SERUM 6.3 g/dL (6.4-8.2)
[2017-09-11 16:01] VITALS: BP 93/54
== END 2017-09-11 18:42 | DRG 291 ==
LOC: D.ER 02:24 → D.M2 04:05
PROVIDERS: Emergency Medicine
PROC: 5A1D70Z Performance of Urinary Filtration, Intermittent, Less than 6 Hours Per Day (ICD-10-PCS; principal; 2017-09-11)
DX: I13.2 Hypertensive heart and chronic kidney disease with heart failure and with stage 5 chronic kidney disease, or end stage renal disease (principal); N18.6 End stage renal disease; I50.23 Acute on chronic systolic (congestive) heart failure; E11.22 Type 2 diabetes mellitus with diabetic chronic kidney disease; E11.65 Type 2 diabetes mellitus with hyperglycemia; Z99.2 Dependence on renal dialysis; I73.9 Peripheral vascular disease, unspecified; I25.10 Atherosclerotic heart disease of native coronary artery without angina pectoris; J44.9 Chronic obstructive pulmonary disease, unspecified; I48.2 Chronic atrial fibrillation; I25.5 Ischemic cardiomyopathy; Z89.612 Acquired absence of left leg above knee; Z95.5 Presence of coronary angioplasty implant and graft; Z89.611 Acquired absence of right leg above knee; Z95.1 Presence of aortocoronary bypass graft

== ENCOUNTER → 2017-12-17 12:19 | Outpatient (CLI) | payer MEDICARE, BC ==
[2017-09-11 13:40] VITALS: BMI 57.1
== END | disposition home or self-care (01) ==
LOC: D.US 12:19
DX: N18.6 End stage renal disease (principal)

== ENCOUNTER 2018-01-30 05:48 | Day surgery (SDC) | payer MEDICARE, BC ==
[~2018-01-30] VITALS: Ht 180.3 cm; Wt 78.9 kg
--- NOTE | ~2018-01-30 | OP ---
PATIENT NAME: NENA BHATTI MEDICAL RECORD: [id number] :54 LOCATION:[facility] ADMISSION DATE: SURGEON: SARITA ENCARNACION MD DATE OF OPERATION: 01/30/2018 REFERRED BY: Dr. Jeff. PREOPERATIVE DIAGNOSIS: End-stage renal disease, on chronic hemodialysis with a right internal jugular tunneled dialysis catheter. OPERATION PERFORMED: Creation of a left brachiocephalic Moni type AV fistula. SURGEON: Sarita Encarnacion MD ANESTHESIA: General with LMA per WIRE PULLER. PREOPERATIVE NOTE: Mr. Bhatti is a 67-year-old white male patient referred by Dr. Jeff. He has end-stage renal disease and is on hemodialysis. He has numerous medical comorbidities including chronic liver failure, congestive heart failure, diabetes, hypertension, coronary artery disease. He has an AICD pacemaker. He has history of atrial fib and a history of chronic anemia and thrombocytopenia consistent with liver disease and hypersplenism as well as renal failure. He is brought to the operating room as an outpatient at this time to create a fistula in his left arm. DESCRIPTION OF PROCEDURE: Under anesthesia per WIRE PULLER who had declined to perform a regional nerve block due to concern over postoperative respiratory muscle weakness from a regional block. The patient was placed in supine position, prepped and draped in a sterile manner. I applied topical nitroglycerin to the arm and used a proximal venous tourniquet, a Richard drain and performed a duplex ultrasound examination and saw no suitable veins in the forearm. He did have a satisfactory cephalic vein in the upper arm and median cubital vein and brachial artery for a primary brachiocephalic fistula creation. There was a very large nice looking basilic vein, so that in the future if needed he may be a candidate for a translocated basilic vein AV fistula. I made a transverse antecubital incision and exposed the median cubital vein and divided several tributaries and divided the deep perforating branch and that was subsequently prepared for anastomosis. The vein was flushed with heparinized saline and hydrostatically distended. A topical papaverine was used as well. The brachial artery was exposed and controlled above its bifurcation with Silastic loops. The end of the automobile lights assembler tributary of the median cubital vein was then anastomosed end to side of brachial artery with running 7-0 Prolene. When the anastomosis was completed and the loops removed or loosened, excellent flow was immediately established within the fistula. The artery had been flushed as well with heparinized saline, but no other systemic anticoagulation was utilized during the operation. With excellent Doppler pulsatile flow in the fistula and a palpable thrill and pulse, the patient's wound was closed with interrupted inverted 3-0 Vicryl and running intracuticular 4-0 Monocryl and Dermabond glue. It was dressed with Maxorb Ag, Tegaderm, and Cavilon skin prep. Note, the patient did have good pulsatile high resistance type Doppler flow signals in the brachial artery distal to the anastomosis at the completion of OPERATIVE REPORT [id number] NENA BHATTI the operation as well. PLAN: The patient will go home later today from the outpatient department and follow up with me in my office. He is given a prescription for 20 tramadol 50 mg tablets. He can take 1 every 4 hours as needed p.r.n. for pain. He will otherwise continue all of his same medications, dialysis schedule, renal ADA diet, etc. TRANSINT:[id number] Voice Confirmation ID: [id number] DOCUMENT ID: [id number] SARITA ENCARNACION MD at 2050 CC: KVNG JEFF MD [id number] DICTATION DATE: 01/30/18 1117 MANAGER FUNCTIONAL: 01/30/18 1224 [facility] 01/30/18 [facility] [address] [place] [address]
[2018-01-30 07:56] LABS: BASOPHILS 0.5 % (0-2); HEMATOCRIT 33.4 % (42.0-54.0); HEMOGLOBIN 10.3 g/dL (13.5-17.5); IMMATURE GRANULOCYTES 0.2 % (0-5); LYMPHOCYTES 16.2 % (15-50); MCHC 30.8 g/dL (31.0-37.0); MCV 84.3 fL (80.0-100.0); MEAN PLATELET VOLUME 9.6 fL (7.4-10.4); MONOCYTES 7.8 % (2-11); NEUTROPHILS 71.3 % (40-80); PLATELET COUNT 182 10x3/uL (130-400); RBC 3.96 10x6/uL (4.20-6.10); WBC 5.5 10x3/uL (4.8-10.8)
[2018-01-30 07:57] VITALS: Ht 180.3 cm; Wt 78.9 kg
[2018-01-30 08:00] LABS: INR 1.24 (0.85-1.17); PROTIME 15.1 SECONDS (11.6-15.0)
[2018-01-30 08:01] LABS: APTT 32.4 SECONDS (22.8-39.4)
[2018-01-30 08:06] LABS: CALCIUM 8.2 mg/dL (8.5-10.1); CREATININE - SERUM 3.6 mg/dL (0.6-1.3)
[2018-01-30] MEDS ORDERED: ULTRAM50 MG PO (10:56)
[2018-03-16] MEDS ORDERED: BETAPACE 120 M120 MG PO (15:59)
== END 2018-01-30 15:00 | disposition home or self-care (01) ==
LOC: D.OPS 05:48
PROVIDERS: Surgery
DX: E11.22 Type 2 diabetes mellitus with diabetic chronic kidney disease (principal); I13.2 Hypertensive heart and chronic kidney disease with heart failure and with stage 5 chronic kidney disease, or end stage renal disease; I50.9 Heart failure, unspecified; N18.6 End stage renal disease; Z99.2 Dependence on renal dialysis; K72.10 Chronic hepatic failure without coma; I25.10 Atherosclerotic heart disease of native coronary artery without angina pectoris; Z95.810 Presence of automatic (implantable) cardiac defibrillator; I48.91 Unspecified atrial fibrillation; D53.9 Nutritional anemia, unspecified; D69.6 Thrombocytopenia, unspecified; D73.1 Hypersplenism; Z01.812 Encounter for preprocedural laboratory examination

== ENCOUNTER 2018-03-17 08:28 | Day surgery (SDC) | payer MEDICARE, BC ==
[2018-03-16 17:08] LABS: CALCIUM 8.1 mg/dL (8.5-10.1); CARBON DIOXIDE 28.8 mmol/L (21.0-32.0); CREATININE - SERUM 2.9 mg/dL (0.6-1.3)
[2018-03-16 17:10] LABS: POTASSIUM - SERUM 2.8 mmol/L (3.5-5.1)
[2018-03-16 17:11] LABS: BASOPHILS 0.5 % (0-2); EOSINOPHILS 2.6 % (0-7); HEMATOCRIT 36.3 % (42.0-54.0); HEMOGLOBIN 11.1 g/dL (13.5-17.5); LYMPHOCYTES 13.8 % (15-50); MCH 25.5 pg (26.0-34.0); MCHC 30.6 g/dL (31.0-37.0); MCV 83.3 fL (80.0-100.0); MEAN PLATELET VOLUME 9.9 fL (7.4-10.4); MONOCYTES 5.2 % (2-11); NEUTROPHILS 77.9 % (40-80); RBC 4.36 10x6/uL (4.20-6.10); RDW 17.1 % (11.5-14.5); WBC 5.8 10x3/uL (4.8-10.8)
[2018-03-16 17:14] LABS: PLATELET COUNT 247 10x3/uL (130-400)
[~2018-03-17] VITALS: Ht 180.3 cm; Wt 3.2 kg
--- NOTE | ~2018-03-17 | OP ---
PATIENT NAME: NENA BHATTI MEDICAL RECORD: [id number] :54 LOCATION:D.OPS ADMISSION DATE: SURGEON: SARITA ENCARNACION MD DATE OF OPERATION: 03/17/2018 REFERRING PHYSICIAN: Girma Jeff. DIAGNOSES: ESRD, dependent on renal dialysis; and thrombosis of left brachiocephalic AV fistula. POSTOPERATIVE DIAGNOSES: ESRD, dependent on renal dialysis; and thrombosis of left brachiocephalic AV fistula. OPERATION PERFORMED: Creation of left brachial artery to translocated basilic vein AV fistula. SURGEON: Sarita Encarnacion MD ANESTHESIA: General with LMA per COUNTY RECORDS MANAGEMENT OFFICER PREOPERATIVE NOTE: Mr. Bhatti is a 67-year-old white male with end-stage renal disease, on dialysis, now with a tunneled catheter. He is status post creation of left brachiocephalic fistula, but it has failed. He is returned to the operating room now for either another fistula or graft. Under anesthesia, in supine position, the patient was prepped and draped in sterile manner. I examined him with ultrasound using the Taglocity duplex device with a proximal tourniquet and after applying nitroglycerin ointment. He was noted to have a fine basilic vein and I thought that he was a good candidate for a translocated basilic fistula. I made an incision on the inner aspect of the arm, which was eventually extended from just below the level of the antecubital space to the axilla. The basilic vein was mobilized for that entire length and tributaries divided between Vicryl ties and Hemoclips. The sensory nerve plexus was preserved. Distally, the vein was ligated and divided. The vein was treated with topical papaverine. It was flushed and distended with heparinized saline and a surgical marker was used to put a line on the vein to aid in orientation. I then exposed the brachial artery at a level that I thought was suitable for the upcoming anastomosis. I placed the basilic vein in a very superficial tunnel, which passed out laterally and then came back medially to the brachial artery. The vein was shortened and beveled. The artery was opened and flushed proximally and distally with heparinized saline. The artery was noted to be fairly heavily diseased with atherosclerosis, though with only scattered calcifications. The anastomosis was performed end of vein to side of artery with running 7-0 Prolene, and when completed and the occluding loops were released, excellent flow was developed in the fistula. The wound was irrigated with Ancef and gentamicin solution, infiltrated and irrigated with 0.25% Marcaine without epinephrine, and the wound was subsequently closed without the use of a drain using interrupted inverted 3-0 Vicryl and running intracuticular 4-0 Monocryl. The incision was sealed with Dermabond glue and further dressed with Maxorb Ag, Tegaderm, and Cavilon skin prep. The patient was awakened and taken to the recovery room. Blood loss during the operation was about 50 cc, none was replaced. All sponges, instruments, and needles were accounted for. No drain was used. OPERATIVE REPORT [id number] NENA BHATTI PLAN: The patient will be discharged to home today and will return to see me in my office next week. Hopefully, his new fistula will be ready to be accessed in about one month. Soon after that, hopefully his tunneled catheter can be removed. TRANSINT:[id number] Voice Confirmation ID: [id number] DOCUMENT ID: [id number] SARITA ENCARNACION MD at 0847 CC: GIRMA JEFF MD [id number] DICTATION DATE: 03/17/18 1432 SAMPLE SUPERVISOR: 03/17/18 1458 [facility] 03/17/18 [address] [place] [address]
[2018-03-17 09:07] VITALS: Ht 180.3 cm; Wt 3.2 kg
[2018-03-17] MEDS ORDERED: ULTRAM50 MG PO (14:18)
== END 2018-03-17 16:40 | disposition home or self-care (01) ==
LOC: D.OPS 08:28
PROVIDERS: Surgery
DX: T82.868A Thrombosis due to vascular prosthetic devices, implants and grafts, initial encounter (principal); E11.22 Type 2 diabetes mellitus with diabetic chronic kidney disease; I13.2 Hypertensive heart and chronic kidney disease with heart failure and with stage 5 chronic kidney disease, or end stage renal disease; I50.20 Unspecified systolic (congestive) heart failure; N18.6 End stage renal disease; Z99.2 Dependence on renal dialysis; D63.1 Anemia in chronic kidney disease; I25.10 Atherosclerotic heart disease of native coronary artery without angina pectoris; I48.91 Unspecified atrial fibrillation; J44.9 Chronic obstructive pulmonary disease, unspecified; I25.5 Ischemic cardiomyopathy; K76.9 Liver disease, unspecified; R18.8 Other ascites; I73.9 Peripheral vascular disease, unspecified; Z01.812 Encounter for preprocedural laboratory examination